=== PATIENT | female | born 1960 | race Caucasian/White ===

== ENCOUNTER 2020-03-01 07:43 | Outpatient (CLI) | payer BC, SELFPAY ==
[2020-03-01 08:12] LABS: Basophils Absolute Auto 0.1 K/mm3 (0.0-0.1); Basophils Percent Auto 0.4 % (0.2-1.2); Eosinophils Absolute Auto 0.2 K/mm3 (0-0.3); Hematocrit 41.6 % (37.0-47.0); Hemoglobin 13.3 g/dL (12.0-15.0); Immature Granulocyte Absolute 0.04 K/mm3 (0.00-0.031); Immature Granulocyte Percent A 0.4 % (0-0.5); Lymphocytes Absolute Auto 2.54 K/mm3 (0.9-3.2); Lymphocytes Percent Auto 22.3 % (18.3-44.2); Mean Corpuscular Hemoglobin 27.6 pg (26-34); Mean Corpuscular Volume 86.3 fl (80-100); Mean Platelet Volume 9.5 fl (7.4-10.4); Monocytes Absolute Auto 0.6 K/mm3 (0.1-0.6); Monocytes Percent Auto 5.4 % (2.6-8.5); Neutrophils Absolute Auto 7.9 K/mm3 (1.3-6.7); Neutrophils Percent Auto 69.5 % (45.5-73.1); Platelet Count Result 366 k/mm3 (150-375); Red Blood Count 4.82 M/mm3 (4.2-5.4); Red Cell Distribution Width 13.3 % (11.5-14.5); White Blood Count 11.4 K/mm3 (4.5-10.0)
[2020-03-01 08:25] LABS: Alanine Aminotransferase 30 U/L (4-35); Albumin Level 4.4 g/dL (3.5-5.1); Alkaline Phosphatase 93 U/L (38-126); Aspartate Amino Transferase 27 U/L (14-36); Bilirubin,Total 0.6 mg/dL (0.2-1.3); Blood Urea Nitrogen 12 mg/dL (7-17); Calcium 9.4 mg/dL (8.4-10.2); Carbon Dioxide 27 mmol/L (22-30); Chloride 99 mmol/L (98-107); Cholesterol 256 mg/dL (0-200); Estimated Glomerular Filt Rate > 60; Glucose 115 mg/dL (65-105); HDL Direct 42 mg/dL; Potassium 4.1 mmol/L (3.4-5.0); Sodium 135 mmol/L (137-145); Triglycerides 173 mg/dL (<150); Uric Acid 6.3 mg/dL (2.5-7.5)
[2020-03-01 08:36] LABS: LDL Cholesterol Direct 159 mg/dL
[2020-03-01 08:42] LABS: Hemoglobin A1C 5.8 % (<5.7)
[2020-03-01 09:03] LABS: Erythrocyte Sedimentation Rate 35 mm/hr (0-20)
[2020-03-01 09:04] LABS: Free T4 Free Thyroxine 1.37 ng/mL (0.78-2.19)
[2020-03-06 08:55] LABS: ANA Cascade Screen Positive (Negative)
[2020-03-06 11:41] LABS: Chromatin (Nucleosomal) Ab <1.0; Chromatin Antibody Charge YES; DNA (ds) Antibody Charge YES; RNP Antibody <1.0; RNP Antibody Charge YES; Sm Antibody <1.0; Sm Antibody Charge YES; Sm/RNP Antibody <1.0; Sm/RNP Antibody Charge YES
== END 2020-03-01 07:44 | disposition home or self-care (01) ==
LOC: ANHLAB 07:45
PROVIDERS: PCP Family Medicine; Visit Provider Family Medicine
DX: R73.03 Prediabetes (principal); K50.90 Crohn's disease, unspecified, without complications; I10 Essential (primary) hypertension; E78.2 Mixed hyperlipidemia; I25.10 Atherosclerotic heart disease of native coronary artery without angina pectoris; E04.9 Nontoxic goiter, unspecified; E03.9 Hypothyroidism, unspecified
CPT/HCPCS: 36415; 80053; 80061; 83036; 84439; 84443; 84550; 85025; 85652; 86038; 86225; 86235

== ENCOUNTER 2020-10-01 08:22 | Outpatient (CLI) | payer BC, SELFPAY ==
--- NOTE | ~2020-10-01 | XR_ITS ---
XR knee LT 3V 10/01/2020 08:37 Indication: Left knee pain Procedure: 3 views left knee Comparison: No prior studies for comparison. Findings: There is mild joint space narrowing consistent with degenerative joint disease. No fracture or traumatic malalignment. There is anatomic alignment. No joint effusion. No foreign bodies. Impression: 1: Mild osteoarthritis of the left knee. Reviewed, dictated and finalized at location B. 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
[2020-10-01 09:14] LABS: Basophils Absolute Auto 0.1 K/mm3 (0.0-0.1); Basophils Percent Auto 0.4 % (0.2-1.2); Eosinophils Absolute Auto 0.2 K/mm3 (0-0.3); Eosinophils Percent Auto 1.8 % (0-4.4); Hematocrit 38.8 % (37.0-47.0); Hemoglobin 12.8 g/dL (12.0-15.0); Immature Granulocyte Absolute 0.04 K/mm3 (0.00-0.031); Immature Granulocyte Percent A 0.4 % (0-0.5); Lymphocytes Absolute Auto 2.34 K/mm3 (0.9-3.2); Lymphocytes Percent Auto 20.6 % (18.3-44.2); Mean Corpuscular Hemoglobin 27.3 pg (26-34); Mean Corpuscular Volume 82.7 fl (80-100); Mean Platelet Volume 9.2 fl (7.4-10.4); Monocytes Absolute Auto 0.5 K/mm3 (0.1-0.6); Monocytes Percent Auto 4.6 % (2.6-8.5); Neutrophils Absolute Auto 8.2 K/mm3 (1.3-6.7); Neutrophils Percent Auto 72.2 % (45.5-73.1); Platelet Count Result 398 k/mm3 (150-375); Red Blood Count 4.69 M/mm3 (4.2-5.4); White Blood Count 11.4 K/mm3 (4.5-10.0)
[2020-10-01 09:27] LABS: Alanine Aminotransferase 33 U/L (4-35); Albumin Level 4.5 g/dL (3.5-5.1); Alkaline Phosphatase 85 U/L (38-126); Anion Gap 11 mmol/L (8-16); Aspartate Amino Transferase 32 U/L (14-36); Bilirubin,Total 0.5 mg/dL (0.2-1.3); Blood Urea Nitrogen 14 mg/dL (7-17); Calcium 9.6 mg/dL (8.4-10.2); Carbon Dioxide 27 mmol/L (22-30); Chloride 100 mmol/L (98-107); Cholesterol 234 mg/dL (0-200); Estimated Glomerular Filt Rate > 60; Glucose 121 mg/dL (65-105); HDL Direct 38 mg/dL; Potassium 4.3 mmol/L (3.4-5.0); Sodium 138 mmol/L (137-145); Triglycerides 215 mg/dL (<150)
[2020-10-01 09:38] LABS: LDL Cholesterol Direct 157 mg/dL
[2020-10-01 09:50] LABS: Erythrocyte Sedimentation Rate 74 mm/hr (0-20)
[2020-10-01 11:37] LABS: Creatinine Urine 289.3 mg/dL
[2020-10-01 11:42] LABS: MALB Creatinine Ratio 11.5 mg/g (0-30); Microalbumin Urine Random 33.2 mg/L (0-16.7)
== END 2020-10-01 08:23 | disposition home or self-care (01) ==
PROVIDERS: PCP Family Medicine; Visit Provider Family Medicine
DX: M25.462 Effusion, left knee (principal); I10 Essential (primary) hypertension; E11.9 Type 2 diabetes mellitus without complications; E78.2 Mixed hyperlipidemia; K50.90 Crohn's disease, unspecified, without complications
CPT/HCPCS: 36415; 73562; 80053; 80061; 82043; 83036; 85025; 85652

== ENCOUNTER 2020-10-23 12:16 | Outpatient (CLI) | payer BC, SELFPAY ==
--- NOTE | ~2020-10-23 | MM_ITS ---
EXAMINATION: MM screening [facility] BI w layla HISTORY: Screening TECHNIQUE: Craniocaudal and mediolateral oblique 3-D tomosynthesis images were obtained and synthetic 2-D images were generated. CAD analysis was submitted and interpreted. COMPARISON: Comparison to multiple prior studies sequentially, with oldest reviewed study dated 05/23. BREAST PARENCHYMAL COMPOSITION: The breasts are heterogeneously dense, which may obscure small masses . FINDINGS: There are scattered benign-appearing breast masses which aren't significantly changed. Ther e is no evidence of suspicious mass, calcification, or architectural distortion to suggest malignancy in either breast. There has been no suspicious interval change. IMPRESSION: 1. No mammographic evidence of malignancy. 2. Recommend routine screening mammography in one year. BI-RADS Category 2: Benign finding(s). Reviewed, dictated and finalized at location D. 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
== END 2020-10-23 12:17 | disposition home or self-care (01) ==
LOC: ANHIMG 12:18
PROVIDERS: PCP Family Medicine; Visit Provider Obstetrics & Gynecology Gynecology
DX: Z12.31 Encounter for screening mammogram for malignant neoplasm of breast (principal)
CPT/HCPCS: 77063; 77067

== ENCOUNTER 2020-10-24 13:54 | Outpatient (CLI) | payer BC, SELFPAY ==
[2020-10-24 14:42] LABS: Hematocrit 39.1 % (37.0-47.0); Hemoglobin 12.5 g/dL (12.0-15.0); Mean Corpuscular Hemoglobin 26.9 pg (26-34); Mean Corpuscular Volume 84.3 fl (80-100); Mean Platelet Volume 9.3 fl (7.4-10.4); Platelet Count Result 387 k/mm3 (150-375); Red Blood Count 4.64 M/mm3 (4.2-5.4); Red Cell Distribution Width 13.6 % (11.5-14.5); White Blood Count 13.9 K/mm3 (4.5-10.0)
[2020-10-24 14:58] LABS: Alanine Aminotransferase 21 U/L (4-35); Albumin Level 4.3 g/dL (3.5-5.1); Alkaline Phosphatase 79 U/L (38-126); Anion Gap 6 mmol/L (8-16); Aspartate Amino Transferase 25 U/L (14-36); Bilirubin,Total 0.4 mg/dL (0.2-1.3); Blood Urea Nitrogen 14 mg/dL (7-17); CRP 2.6 mg/dL (<1.0); Calcium 9.7 mg/dL (8.4-10.2); Carbon Dioxide 32 mmol/L (22-30); Chloride 98 mmol/L (98-107); Estimated Glomerular Filt Rate > 60; Glucose 89 mg/dL (65-105); Potassium 4.4 mmol/L (3.4-5.0); Sodium 136 mmol/L (137-145)
[2020-10-24 15:55] LABS: Erythrocyte Sedimentation Rate 58 mm/hr (0-20)
== END 2020-10-24 13:55 | disposition home or self-care (01) ==
PROVIDERS: PCP Family Medicine; Visit Provider Nurse Practitioner Family
DX: K50.10 Crohn's disease of large intestine without complications (principal); R19.7 Diarrhea, unspecified
CPT/HCPCS: 36415; 80053; 85027; 85652; 86140

== ENCOUNTER 2020-10-29 09:16 | Outpatient (CLI) | payer BC, SELFPAY | END 2020-10-29 09:17 | disposition home or self-care (01) | PROVIDERS: PCP Family Medicine; Visit Provider Nurse Practitioner Family | DX: K50.10 Crohn's disease of large intestine without complications (principal); R19.7 Diarrhea, unspecified | CPT/HCPCS: 87045; 87046; 87427 ==

== ENCOUNTER 2021-04-03 07:49 | Outpatient (CLI) | payer BC, SELFPAY ==
[2021-04-03 09:12] LABS: Hemoglobin A1C 6.3 % (<5.7)
[2021-04-03 10:00] LABS: Alanine Aminotransferase 25 U/L (4-35); Albumin Level 4.6 g/dL (3.5-5.1); Alkaline Phosphatase 86 U/L (38-126); Anion Gap 13 mmol/L (8-16); Aspartate Amino Transferase 41 U/L (14-36); Bilirubin,Total 0.8 mg/dL (0.2-1.3); Blood Urea Nitrogen 14 mg/dL (7-17); Calcium 9.5 mg/dL (8.4-10.2); Carbon Dioxide 24 mmol/L (22-30); Chloride 96 mmol/L (98-107); Estimated Glomerular Filt Rate > 60; Glucose 105 mg/dL (65-110); Sodium 133 mmol/L (137-145)
[2021-04-03 10:04] LABS: Basophils Percent Auto 0.4 % (0.2-1.2); Eosinophils Absolute Auto 0.3 K/mm3 (0-0.3); Eosinophils Percent Auto 2.7 % (0-4.4); Hematocrit 43.5 % (37.0-47.0); Hemoglobin 14.3 g/dL (12.0-15.0); Immature Granulocyte Absolute 0.03 K/mm3 (0.00-0.031); Immature Granulocyte Percent A 0.3 % (0-0.5); Lymphocytes Absolute Auto 2.44 K/mm3 (0.9-3.2); Lymphocytes Percent Auto 22.3 % (18.3-44.2); Mean Corpuscular HGB Conc 32.9 g/dl (32-36); Mean Corpuscular Hemoglobin 26.7 pg (26-34); Mean Corpuscular Volume 81.2 fl (80-100); Mean Platelet Volume 10.5 fl (7.4-10.4); Monocytes Absolute Auto 0.5 K/mm3 (0.1-0.6); Monocytes Percent Auto 4.4 % (2.6-8.5); Neutrophils Absolute Auto 7.7 K/mm3 (1.3-6.7); Neutrophils Percent Auto 69.9 % (45.5-73.1); Platelet Count Result 298 k/mm3 (150-375); Red Blood Count 5.36 M/mm3 (4.2-5.4); Red Cell Distribution Width 13.7 % (11.5-14.5); White Blood Count 10.9 K/mm3 (4.5-10.0)
== END 2021-04-03 07:50 | disposition home or self-care (01) ==
LOC: ANHLAB 07:51
PROVIDERS: PCP Family Medicine; Visit Provider Physician Assistant
DX: E78.2 Mixed hyperlipidemia (principal); R73.03 Prediabetes; I10 Essential (primary) hypertension
CPT/HCPCS: 36415; 80053; 83036; 85025

== ENCOUNTER 2021-04-25 07:59 | Outpatient (CLI) | payer BC, SELFPAY ==
[2021-04-25 09:01] LABS: Anion Gap 11 mmol/L (8-16); Blood Urea Nitrogen 13 mg/dL (7-17); Calcium 9.6 mg/dL (8.4-10.2); Carbon Dioxide 23 mmol/L (22-30); Chloride 102 mmol/L (98-107); Estimated Glomerular Filt Rate > 60; Glucose 111 mg/dL (65-110); Potassium 3.9 mmol/L (3.4-5.0); Sodium 136 mmol/L (137-145)
== END 2021-04-25 08:00 | disposition home or self-care (01) ==
LOC: ANHLAB 08:03
PROVIDERS: PCP Family Medicine; Visit Provider Physician Assistant
DX: E87.1 Hypo-osmolality and hyponatremia (principal)
CPT/HCPCS: 36415; 80048

== ENCOUNTER 2021-08-21 07:10 | Outpatient (CLI) | payer BC, SELFPAY ==
[2021-08-21 07:52] LABS: Add Urine Microscopic? NO; Appearance Urine Clear (Clear); Bilirubin Urine Negative (Negative); Blood Urine Negative (Negative); Color Urine Yellow (Yellow); Glucose Urine UA Negative (Negative); Ketones Urine Negative (Negative); Leukocyte Esterase Ur Negative LEU/UL (Negative); Nitrate Urine Negative (Negative); Protein Urine Negative (Negative); Specific Grav Ur 1.015 (1.001-1.035); Urobilinogen Urine Negative mg/dL (<2.0)
[2021-08-21 08:02] LABS: Hematocrit 39.1 % (37.0-47.0); Hemoglobin 12.5 g/dL (12.0-15.0); Mean Corpuscular Hemoglobin 27.3 pg (26-34); Mean Corpuscular Volume 85.4 fl (80-100); Mean Platelet Volume 9.4 fl (7.4-10.4); Platelet Count Result 355 k/mm3 (150-375); Red Blood Count 4.58 M/mm3 (4.2-5.4); Red Cell Distribution Width 13.3 % (11.5-14.5)
[2021-08-21 08:05] LABS: Rheumatoid Factor < 8.6 IU/ML (<12)
[2021-08-21 08:10] LABS: Alanine Aminotransferase 18 U/L (4-35); Albumin Level 4.3 g/dL (3.5-5.1); Alkaline Phosphatase 91 U/L (38-126); Anion Gap 9 mmol/L (8-16); Aspartate Amino Transferase 24 U/L (14-36); Bilirubin,Total 0.5 mg/dL (0.2-1.3); Blood Urea Nitrogen 10 mg/dL (7-17); Calcium 9.7 mg/dL (8.4-10.2); Carbon Dioxide 29 mmol/L (22-30); Chloride 100 mmol/L (98-107); Estimated Glomerular Filt Rate > 60; Glucose 116 mg/dL (65-110); Potassium 3.8 mmol/L (3.4-5.0); Sodium 138 mmol/L (137-145)
[2021-08-21 09:43] LABS: Erythrocyte Sedimentation Rate 49 mm/hr (0-20)
[2021-08-27 11:49] LABS: Anti Cyclic Citrullinated Pept <16 Units (<20)
== END 2021-08-21 07:11 | disposition home or self-care (01) ==
LOC: ANHLAB 07:12
PROVIDERS: PCP Family Medicine; Visit Provider Internal Medicine
DX: M19.90 Unspecified osteoarthritis, unspecified site (principal); R76.8 Other specified abnormal immunological findings in serum
CPT/HCPCS: 36415; 80053; 81003; 85027; 85652; 86140; 86200; 86225; 86430

== ENCOUNTER 2021-11-13 09:39 | Outpatient (CLI) | payer BC, SELFPAY ==
--- NOTE | ~2021-11-13 | MM_ITS ---
EXAMINATION: MM screening nick BI w layla HISTORY: Screening mammogram TECHNIQUE: Craniocaudal and mediolateral oblique 3-D tomosynthesis images were obtained and synthetic 2-D images were generated. CAD analysis was submitted and interpreted. COMPARISON: 10/27/2020, 09/07/2019, 06/28/2018 bilateral screening mammogram examinations BREAST PARENCHYMAL COMPOSITION: There are scattered areas of fibroglandular density. FINDINGS: Scattered bilateral benign calcifications. There is no evidence of suspicious mass, calcifi cation, or architectural distortion to suggest malignancy in either breast. There has been no suspici ous interval change. IMPRESSION: 1. No mammographic evidence of malignancy. 2. Recommend routine screening mammography in one year. BI-RADS Category 2: Benign finding(s). Reviewed, dictated and finalized at location A.
== END 2021-11-13 09:40 | disposition home or self-care (01) ==
PROVIDERS: PCP Family Medicine; Visit Provider Obstetrics & Gynecology Gynecology
DX: Z12.31 Encounter for screening mammogram for malignant neoplasm of breast (principal)
CPT/HCPCS: 77063; 77067

== ENCOUNTER 2022-01-29 07:41 | Emergency (ER) | payer BC, SELFPAY ==
[2022-01-29 07:42] VITALS: BP 157/64; PULSE 87; RESP 14; TEMP 36.8; O2SAT 93
[2022-01-29 08:29] LABS: Basophils Percent Auto 0.1 % (0.2-1.2); Eosinophils Absolute Auto 0.1 K/mm3 (0-0.3); Eosinophils Percent Auto 0.8 % (0-4.4); Hematocrit 36.5 % (37.0-47.0); Immature Granulocyte Absolute 0.05 K/mm3 (0.00-0.031); Immature Granulocyte Percent A 0.5 % (0-0.5); Lymphocytes Absolute Auto 0.83 K/mm3 (0.9-3.2); Lymphocytes Percent Auto 7.5 % (18.3-44.2); Mean Corpuscular HGB Conc 32.9 g/dl (32-36); Mean Corpuscular Hemoglobin 27.6 pg (26-34); Mean Corpuscular Volume 83.9 fl (80-100); Mean Platelet Volume 9.4 fl (7.4-10.4); Monocytes Absolute Auto 0.4 K/mm3 (0.1-0.6); Monocytes Percent Auto 3.3 % (2.6-8.5); Neutrophils Absolute Auto 9.7 K/mm3 (1.3-6.7); Neutrophils Percent Auto 87.8 % (45.5-73.1); Platelet Count Result 326 k/mm3 (150-375); Red Blood Count 4.35 M/mm3 (4.2-5.4); Red Cell Distribution Width 13.2 % (11.5-14.5); White Blood Count 11.1 K/mm3 (4.5-10.0)
[2022-01-29 08:35] LABS: Alanine Aminotransferase 56 U/L (6-35); Albumin Level 4.1 g/dL (3.5-5.1); Alkaline Phosphatase 213 U/L (38-126); Anion Gap 6 mmol/L (8-16); Aspartate Amino Transferase 126 U/L (14-36); Blood Urea Nitrogen 17 mg/dL (7-17); Calcium 8.7 mg/dL (8.4-10.2); Carbon Dioxide 29 mmol/L (22-30); Chloride 100 mmol/L (98-107); Estimated CRCL calculation 64 ml/min; Estimated Glomerular Filt Rate > 60; Glucose 138 mg/dL (65-110); Lipase 54 U/L (23-300); Potassium 3.9 mmol/L (3.4-5.0); Sodium 135 mmol/L (137-145)
[2022-01-29 09:03] LABS: Appearance Urine Cloudy (Clear); Bilirubin Urine Negative (Negative); Blood Urine Negative (Negative); Color Urine Yellow (Yellow); Glucose Urine UA Negative (Negative); Ketones Urine Negative (Negative); Leukocyte Esterase Ur 1+ LEU/UL (Negative); Nitrate Urine Negative (Negative); Protein Urine Negative (Negative); Specific Grav Ur >= 1.030 (1.001-1.035); pH Urine 5.5 (5.0-9.0)
[2022-01-29 09:14] LABS: Mucus Urine Few /lpf; Squamous Epithelial Cell Urine Many /hpf (Few)
[2022-01-29 09:15] LABS: Add Urine Microscopic? YES
[2022-01-29] MEDS: SODIUM CHLORIDE 0.9% IV 1,000 ML 999 ML IV CONT (09:36)
[2022-01-29] MEDS: ONDANSETRON INJ 4 MG/2 ML VIAL IV PUSH (09:37)
[2022-01-29] MEDS: MORPHINE SULFATE (*CRX) 4 MG/ML INJ IV PUSH (09:38)
[2022-01-29 09:39] VITALS: BP 136/86; PULSE 86; RESP 14; O2SAT 95
--- NOTE | 2022-01-29 09:44 | ED.GENADULT ---
HPI - General Adult General Chief complaint: Back Pain/Injury Stated complaint: Back Pain x 1 wk, N/V x 1 day Time Seen by Provider: 01/29/22 07:57 History of Present Illness HPI narrative: Patient is a 61-year-old female who presents ER with multiple complaints. First complaint is low back pain. Aching and nonradiating. Ongoing for 1 week. Has not tried any pain medications. Cannot report any alleviating factors. Reports last night she started having diarrhea and cannot quantify how many stools she has had. She then developed vomiting this morning. No known sick contacts. No fevers or chills or sweats. No chest pain or chest pressure. Patient reports she has had her gallbladder removed. Related Data Home Medications Medication Instructions Recorded Confirmed ctyuwqfrldsm-eafmxecf-qrxozou-folic 1 tablet PO DAILY 07/14/19 07/02/21 acid 400 mcg-vit K1 20 mcg tablet (One-A-Day Women's 50 Plus) nitroglycerin 0.4 mg sublingual 0.4 mg sublingual Q5M PRN Chest 07/14/19 07/02/21 tablet Pain vedolizumab 300 mg intravenous 300 mg IV ONCE 10/01/20 07/02/21 solution (Entyvio) B-complex with vitamin C (Super B 1 tablet PO DAILY 10/14/20 07/02/21 Complex-Vitamin C tablet) tacrolimus 0.1 % topical ointment 1 applic topical BID 10/14/20 07/02/21 Allergies Allergy/AdvReac Type Severity Reaction Status Date / Time adalimumab [From Humira] Allergy Intermediate rash Verified 01/29/22 07:45 Review of Systems Review of Systems: All systems reviewed & are unremarkable except as noted in HPI and below Constitutional: Constitutional: Denies chills, Reports fatigue and Denies fever(s) ENT: Denies nasal congestion Cardiovascular: Cardiovascular: Denies chest pain, Denies rapid heart rate and Denies radiating jaw, neck or arm pain Respiratory: Respiratory: Denies cough and Denies dyspnea Gastrointestinal: Gastrointestinal: Denies abdominal pain, Reports diarrhea, Reports nausea and Reports vomiting Genitourinary: Genitourinary: Denies nocturia and Denies dysuria Musculoskeletal: Musculoskeletal: Reports back pain Neurologic: Denies focal weakness and Denies numbness PMFSH Past Medical History Medical History Acute right-sided thoracic back pain ESPERANZA positive (~2019) Atherosclerotic heart disease of [place] coronary artery with angina pectoris Borderline diabetes mellitus Borderline type 2 diabetes mellitus BP (high blood pressure) Bronchitis CAD (coronary artery disease) Cellulitis and abscess of left lower extremity Cerebrovascular accident (CVA) of pontine structure Crohn disease Cutaneous abscess of left lower limb Depression Diabetes Diarrhea Dietary counseling and surveillance (01/31/19) Elevated fasting glucose Elevated liver enzymes Encounter for surgical aftercare following surgery on the skin and subcutaneous tissue Epidermal cyst Erythema nodosum Essential (primary) hypertension Foot drop MARCIA (generalized anxiety disorder) Gout, unspecified Hemiplegia of nondominant side following CVA (cerebrovascular accident) History of [place] (myocardial infarction) Hyperlipidemia, unspecified Hypersomnia Hypothyroidism Left knee DJD Localized swelling of back skilled nursing (current) use of antithrombotics/antiplatelets Major depressive disorder, recurrent severe without psychotic features Mass of left hip region Mixed hyperlipidemia Neuropathy Non-cardiac chest pain ALANA (obstructive sleep apnea) Other iodine-deficiency related thyroid disorders and allied conditions Screening for diabetes mellitus (DM) Stroke Subacute maxillary sinusitis Ulcerative proctitis with rectal bleeding Vitamin D deficiency Surgical History Surgical History H/O heart artery stent History of surgery Crohn's, 04/2019 Dr. Culp History of toe surgery LT 1st toe- 02/2015 History of tubal ligation Family History Family Histo
[2022-01-29 10:15] VITALS: BP 132/54; PULSE 81; RESP 18; O2SAT 96
[2022-01-29 11:30] VITALS: BP 131/61; PULSE 79; RESP 19; O2SAT 96
[2022-01-29 12:10] VITALS: BP 137/69; PULSE 77; RESP 14; O2SAT 94
[2022-01-29 12:15] VITALS: BP 137/69; PULSE 82; RESP 19; O2SAT 93
== END 2022-01-29 12:15 | disposition home or self-care (01) ==
PROVIDERS: Emergency Provider Emergency Medicine; PCP Family Medicine
DX: M54.6 Pain in thoracic spine (principal); K52.9 Noninfective gastroenteritis and colitis, unspecified; I25.10 Atherosclerotic heart disease of native coronary artery without angina pectoris; E11.9 Type 2 diabetes mellitus without complications; I10 Essential (primary) hypertension; E78.5 Hyperlipidemia, unspecified
CPT/HCPCS: 36415; 80053; 81001; 83690; 85025; 87086; 87088; 96361; 96374; 96375; 99284; J2270; J2405; J7030

== ENCOUNTER 2022-02-11 11:37 | Outpatient (CLI) | payer BC, SELFPAY ==
[2022-02-11 11:57] LABS: Hematocrit 39.3 % (37.0-47.0); Hemoglobin 12.5 g/dL (12.0-15.0); Mean Corpuscular HGB Conc 31.8 g/dl (32-36); Mean Corpuscular Volume 84.9 fl (80-100); Mean Platelet Volume 9.2 fl (7.4-10.4); Platelet Count Result 360 k/mm3 (150-375); Red Blood Count 4.63 M/mm3 (4.2-5.4); Red Cell Distribution Width 13.3 % (11.5-14.5); White Blood Count 11.5 K/mm3 (4.5-10.0)
[2022-02-11 12:12] LABS: Alanine Aminotransferase 21 U/L (6-35); Albumin Level 4.6 g/dL (3.5-5.1); Alkaline Phosphatase 98 U/L (38-126); Anion Gap 10 mmol/L (8-16); Aspartate Amino Transferase 20 U/L (14-36); Bilirubin,Total 0.2 mg/dL (0.2-1.3); Blood Urea Nitrogen 16 mg/dL (7-17); Calcium 9.7 mg/dL (8.4-10.2); Carbon Dioxide 28 mmol/L (22-30); Chloride 101 mmol/L (98-107); Estimated Glomerular Filt Rate > 60; Glucose 99 mg/dL (65-110); Potassium 4.2 mmol/L (3.4-5.0); Sodium 139 mmol/L (137-145)
[2022-02-11 12:48] LABS: Erythrocyte Sedimentation Rate 40 mm/hr (0-20)
== END 2022-02-11 11:38 | disposition home or self-care (01) ==
LOC: ANHLAB 11:41
PROVIDERS: PCP Family Medicine; Visit Provider Nurse Practitioner Family
DX: K50.90 Crohn's disease, unspecified, without complications (principal)
CPT/HCPCS: 36415; 80053; 85027; 85652; 86140

== ENCOUNTER 2022-02-14 09:09 | Outpatient (CLI) | payer BC, SELFPAY ==
[2022-02-20 20:31] LABS: Calprotectin, Stool 105 mcg/g
== END 2022-02-14 09:10 | disposition home or self-care (01) ==
LOC: ANHLAB 09:11
PROVIDERS: PCP Family Medicine; Visit Provider Nurse Practitioner Family
DX: K50.90 Crohn's disease, unspecified, without complications (principal)
CPT/HCPCS: 83993

== ENCOUNTER 2022-04-17 07:15 | Outpatient (CLI) | payer BC, SELFPAY ==
[2022-04-17 07:45] LABS: Basophils Absolute Auto 0.1 K/mm3 (0.0-0.1); Basophils Percent Auto 0.4 % (0.2-1.2); Eosinophils Absolute Auto 0.2 K/mm3 (0-0.3); Eosinophils Percent Auto 1.8 % (0-4.4); Hematocrit 38.8 % (37.0-47.0); Hemoglobin 12.2 g/dL (12.0-15.0); Immature Granulocyte Absolute 0.04 K/mm3 (0.00-0.031); Immature Granulocyte Percent A 0.3 % (0-0.5); Lymphocytes Absolute Auto 3.02 K/mm3 (0.9-3.2); Lymphocytes Percent Auto 26.4 % (18.3-44.2); Mean Corpuscular HGB Conc 31.4 g/dl (32-36); Mean Corpuscular Hemoglobin 26.8 pg (26-34); Mean Corpuscular Volume 85.1 fl (80-100); Mean Platelet Volume 9.5 fl (7.4-10.4); Monocytes Absolute Auto 0.6 K/mm3 (0.1-0.6); Neutrophils Absolute Auto 7.6 K/mm3 (1.3-6.7); Neutrophils Percent Auto 66.1 % (45.5-73.1); Platelet Count Result 385 k/mm3 (150-375); Red Blood Count 4.56 M/mm3 (4.2-5.4); Red Cell Distribution Width 13.3 % (11.5-14.5); White Blood Count 11.4 K/mm3 (4.5-10.0)
[2022-04-17 07:52] LABS: Creatinine Urine 140.6 mg/dL
[2022-04-17 07:58] LABS: Microalbumin Urine Random 8.4 mg/L (0-16.7)
[2022-04-17 08:11] LABS: Free T4 Free Thyroxine 1.29 ng/mL (0.78-2.19)
[2022-04-17 10:04] LABS: Hemoglobin A1C 5.9 % (<5.7)
[2022-04-17 10:11] LABS: Alanine Aminotransferase 17 U/L (6-35); Albumin Level 4.3 g/dL (3.5-5.1); Alkaline Phosphatase 81 U/L (38-126); Anion Gap 10 mmol/L (8-16); Aspartate Amino Transferase 23 U/L (14-36); Bilirubin,Total 0.4 mg/dL (0.2-1.3); Blood Urea Nitrogen 13 mg/dL (7-17); Calcium 9.5 mg/dL (8.4-10.2); Carbon Dioxide 28 mmol/L (22-30); Chloride 100 mmol/L (98-107); Cholesterol 157 mg/dL (0-200); Estimated Glomerular Filt Rate > 60; Glucose 111 mg/dL (65-110); HDL Direct 41 mg/dL; Potassium 3.8 mmol/L (3.4-5.0); Sodium 138 mmol/L (137-145)
[2022-04-17 10:17] LABS: LDL Cholesterol Direct 76 mg/dL
[2022-04-17 10:33] LABS: Total Triiodothyronine (T3) 0.92 NG/ML (0.97-1.69); Triglycerides 207 mg/dL (<150)
== END 2022-04-17 07:16 | disposition home or self-care (01) ==
LOC: ANHLAB 07:16
PROVIDERS: PCP Family Medicine; Visit Provider Nurse Practitioner Gerontology
DX: I25.10 Atherosclerotic heart disease of native coronary artery without angina pectoris (principal); I10 Essential (primary) hypertension; E11.9 Type 2 diabetes mellitus without complications; E03.9 Hypothyroidism, unspecified; Z86.73 Personal history of transient ischemic attack (TIA), and cerebral infarction without residual deficits
CPT/HCPCS: 36415; 80053; 80061; 82043; 83036; 84439; 84443; 84480; 85025

== ENCOUNTER 2022-11-02 08:04 | Outpatient (CLI) | payer BC, SELFPAY ==
[2022-11-02 08:50] LABS: Hematocrit 38.9 % (37.0-47.0); Hemoglobin 12.5 g/dL (12.0-15.0); Mean Corpuscular HGB Conc 32.1 g/dl (32-36); Mean Corpuscular Hemoglobin 26.9 pg (26-34); Mean Corpuscular Volume 83.7 fl (80-100); Mean Platelet Volume 9.6 fl (7.4-10.4); Platelet Count Result 375 k/mm3 (150-375); Red Blood Count 4.65 M/mm3 (4.2-5.4); Red Cell Distribution Width 13.9 % (11.5-14.5); White Blood Count 10.5 K/mm3 (4.5-10.0)
[2022-11-02 09:46] LABS: Erythrocyte Sedimentation Rate 101 mm/hr (0-20)
[2022-11-02 09:57] LABS: Alanine Aminotransferase 24 U/L (6-35); Albumin Level 4.4 g/dL (3.5-5.1); Alkaline Phosphatase 80 U/L (38-126); Anion Gap 10 mmol/L (8-16); Aspartate Amino Transferase 28 U/L (14-36); Bilirubin,Total 0.6 mg/dL (0.2-1.3); Blood Urea Nitrogen 13 mg/dL (7-17); CRP 1.1 mg/dL (<1.0); Calcium 9.5 mg/dL (8.4-10.2); Carbon Dioxide 28 mmol/L (22-30); Chloride 101 mmol/L (98-107); Cholesterol 174 mg/dL (0-200); Estimated Glomerular Filt Rate > 60; Glucose 113 mg/dL (65-110); HDL Direct 35 mg/dL; Potassium 3.8 mmol/L (3.4-5.0); Sodium 139 mmol/L (137-145); Triglycerides 268 mg/dL (<150)
[2022-11-02 10:06] LABS: LDL Cholesterol Direct 94 mg/dL
== END 2022-11-02 08:05 | disposition home or self-care (01) ==
PROVIDERS: Nurse Practitioner Gerontology; PCP Family Medicine; Visit Provider Nurse Practitioner Family
DX: E78.2 Mixed hyperlipidemia (principal); E11.9 Type 2 diabetes mellitus without complications; K50.10 Crohn's disease of large intestine without complications
CPT/HCPCS: 36415; 80053; 80061; 83036; 85027; 85652; 86140

== ENCOUNTER 2022-11-10 09:33 | Outpatient (CLI) | payer BC, SELFPAY ==
[2022-11-18 00:45] LABS: Calprotectin, Stool 100 mcg/g
== END 2022-11-10 09:34 | disposition home or self-care (01) ==
LOC: ANHLAB 09:34
PROVIDERS: PCP Family Medicine; Visit Provider Nurse Practitioner Family
DX: R70.0 Elevated erythrocyte sedimentation rate (principal); K50.10 Crohn's disease of large intestine without complications
CPT/HCPCS: 83993

== ENCOUNTER 2022-11-19 15:10 | Outpatient (CLI) | payer BC, SELFPAY ==
--- NOTE | ~2022-11-19 | XR_ITS ---
EXAMINATION: XR abdomen/kub 1V INDICATION: Abdominal distention TECHNIQUE: Supine views of the abdomen were obtained on 2 radiographs. COMPARISON: None FINDINGS: There is elevation of the right hemidiaphragm. No dilated loops of bowel are evident. The b owel gas pattern is normal. Surgical clips in the right upper quadrant are likely from prior cholecys tectomy. Uterine calcifications are noted. There is mild osteoarthritis of the hips. IMPRESSION: 1. No radiographic correlate for the patient's symptoms. Reviewed, dictated and finalized at location F.
[2022-11-19 15:59] LABS: Hematocrit 39.3 % (37.0-47.0); Hemoglobin 12.6 g/dL (12.0-15.0); Mean Corpuscular HGB Conc 32.1 g/dl (32-36); Mean Corpuscular Hemoglobin 27.3 pg (26-34); Mean Corpuscular Volume 85.1 fl (80-100); Mean Platelet Volume 9.7 fl (7.4-10.4); Platelet Count Result 411 k/mm3 (150-375); Red Blood Count 4.62 M/mm3 (4.2-5.4); Red Cell Distribution Width 13.7 % (11.5-14.5); White Blood Count 14.5 K/mm3 (4.5-10.0)
[2022-11-19 16:16] LABS: Alanine Aminotransferase 20 U/L (6-35); Albumin Level 4.6 g/dL (3.5-5.1); Alkaline Phosphatase 95 U/L (38-126); Amylase 79 U/L (30-110); Anion Gap 9 mmol/L (8-16); Aspartate Amino Transferase 22 U/L (14-36); Bilirubin,Total 0.5 mg/dL (0.2-1.3); Blood Urea Nitrogen 20 mg/dL (7-17); CRP 2.6 mg/dL (<1.0); Calcium 9.6 mg/dL (8.4-10.2); Carbon Dioxide 29 mmol/L (22-30); Chloride 99 mmol/L (98-107); Estimated Glomerular Filt Rate > 60; Glucose 137 mg/dL (65-110); Lipase 83 U/L (23-300); Potassium 4.3 mmol/L (3.4-5.0); Sodium 137 mmol/L (137-145)
[2022-11-19 16:30] LABS: Appearance Urine Turbid (Clear); Bacteria Urine 3+ /hpf; Bilirubin Urine 1+ (Negative); Blood Urine Negative (Negative); Color Urine Dark Yellow (Yellow); Glucose Urine UA Negative (Negative); Ketones Urine Trace mg/dL (Negative); Leukocyte Esterase Ur 2+ LEU/UL (Negative); Need Manual Microscopic Reviewed; Nitrate Urine Negative (Negative); Protein Urine Trace mg/dL (Negative); Specific Grav Ur 1.031 (1.001-1.035); Squamous Epithelial Cell Urine Many /hpf (Few); WBC Urine 51-100 /hpf
[2022-11-19 16:31] LABS: Add Urine Microscopic? YES
[2022-11-19 17:00] LABS: Erythrocyte Sedimentation Rate 34 mm/hr (0-20)
== END 2022-11-19 15:11 | disposition home or self-care (01) ==
LOC: ANHLAB 15:12
PROVIDERS: PCP Family Medicine; Visit Provider Nurse Practitioner Family
DX: R10.9 Unspecified abdominal pain (principal); K50.10 Crohn's disease of large intestine without complications; R14.0 Abdominal distension (gaseous)
CPT/HCPCS: 36415; 74018; 80053; 81001; 82150; 83690; 85027; 85652; 86140; 87086; 87088

== ENCOUNTER 2022-11-26 12:12 | Outpatient (CLI) | payer BC, SELFPAY ==
--- NOTE | ~2022-11-26 | CT_ITS ---
EXAMINATION: CT abdomen pelvis w con DATE: 11/26/2022 12:53 INDICATION: Abdominal pain, bloating. History of Crohn's disease. TECHNIQUE: Computed tomography (CT) of the abdomen and pelvis was performed with 100 CC Omnipaque 350 intravenous contrast. Automated exposure control and iterative reconstruction technique were employe d. Exam dose: 1046.59 mGy-cm total exam DLP. COMPARISON: 04/27/2019 CT abdomen 04/25/2019 CT abdomen pelvis FINDINGS: The lung bases are clear of infiltrate or consolidation. Heart size is within normal limits . No pericardial or pleural effusion. Status post cholecystectomy. The liver, bile ducts, pancreas, pancreatic duct and spleen as well as t he adrenal glands appear normal. Approximately 1.6 cm posterior mid left renal probable cyst. No urinary tract calculus or hydroureteronephrosis of the urinary bladder is unremarkable. Retroverte d uterus with multiple calcified uterine fibroids. The adnexal areas and ovaries are unremarkable. There is atherosclerotic calcification of the abdominal aorta and branches. No abdominal aortic aneur ysm. No intraperitoneal or retroperitoneal or pelvic mass lesion or adenopathy or ascites is detected . Small sliding hiatal hernia. No bowel obstruction or intraperitoneal free air. IMPRESSION: Status post cholecystectomy Small sliding hiatal hernia 1.6 cm left renal probable cyst Retroverted uterus with multiple calcified fibroids Reviewed, dictated and finalized at Location A. Reviewed, dictated and finalized at location A.
== END 2022-11-26 12:13 | disposition home or self-care (01) ==
PROVIDERS: PCP Family Medicine; Visit Provider Nurse Practitioner Family
DX: R10.9 Unspecified abdominal pain (principal); R14.0 Abdominal distension (gaseous); K44.9 Diaphragmatic hernia without obstruction or gangrene; N28.9 Disorder of kidney and ureter, unspecified; N85.4 Malposition of uterus; D25.9 Leiomyoma of uterus, unspecified
CPT/HCPCS: 74177; Q9967

== ENCOUNTER 2023-02-27 08:19 | Outpatient (CLI) | payer BC, SELFPAY ==
--- NOTE | ~2023-02-27 | MM_ITS ---
EXAMINATION: MM screening nick BI w layla HISTORY: Screening mammogram TECHNIQUE: Craniocaudal and mediolateral oblique 3-D tomosynthesis images were obtained and synthetic 2-D images were generated. CAD analysis was submitted and interpreted. COMPARISON: 11/13/2021, 10/23/2020, 09/07/2019 BREAST PARENCHYMAL COMPOSITION:There are scattered areas of fibroglandular density. FINDINGS: Bilateral benign calcifications are similar to prior exams. No suspicious mass, calcificati on, or architectural distortion are identified in either breast to suggest malignancy. There has been no suspicious interval change. IMPRESSION: No mammographic evidence of malignancy. Recommend routine screening mammography in one year. BI-RADS Category 2: Benign finding(s). Reviewed, dictated and finalized at location .
== END 2023-02-27 08:20 | disposition home or self-care (01) ==
LOC: ANHIMG 08:21
PROVIDERS: PCP Family Medicine; Visit Provider Obstetrics & Gynecology Gynecology
DX: Z12.31 Encounter for screening mammogram for malignant neoplasm of breast (principal)
CPT/HCPCS: 77063; 77067

== ENCOUNTER 2023-05-05 09:23 | Outpatient (CLI) | payer BC, SELFPAY ==
[2023-05-05 10:38] LABS: Basophils Absolute Auto 0.1 K/mm3 (0.0-0.1); Basophils Percent Auto 0.5 % (0.2-1.2); Eosinophils Absolute Auto 0.3 K/mm3 (0-0.3); Eosinophils Percent Auto 2.4 % (0-4.4); Hematocrit 39.4 % (37.0-47.0); Hemoglobin 12.4 g/dL (12.0-15.0); Immature Granulocyte Absolute 0.05 K/mm3 (0.00-0.031); Immature Granulocyte Percent A 0.5 % (0-0.5); Lymphocytes Percent Auto 19.6 % (18.3-44.2); Mean Corpuscular HGB Conc 31.5 g/dl (32-36); Mean Corpuscular Hemoglobin 27.1 pg (26-34); Mean Platelet Volume 10.1 fl (7.4-10.4); Monocytes Absolute Auto 0.5 K/mm3 (0.1-0.6); Monocytes Percent Auto 4.9 % (2.6-8.5); Neutrophils Absolute Auto 7.4 K/mm3 (1.3-6.7); Neutrophils Percent Auto 72.1 % (45.5-73.1); Platelet Count Result 351 k/mm3 (150-375); Red Blood Count 4.58 M/mm3 (4.2-5.4); Red Cell Distribution Width 13.9 % (11.5-14.5); White Blood Count 10.2 K/mm3 (4.5-10.0)
[2023-05-05 10:49] LABS: Alanine Aminotransferase 28 U/L (6-35); Albumin Level 4.3 g/dL (3.5-5.1); Alkaline Phosphatase 99 U/L (38-126); Anion Gap 11 mmol/L (8-16); Aspartate Amino Transferase 50 U/L (14-36); Bilirubin,Total 0.6 mg/dL (0.2-1.3); Blood Urea Nitrogen 15 mg/dL (7-17); Calcium 9.6 mg/dL (8.4-10.2); Carbon Dioxide 29 mmol/L (22-30); Chloride 97 mmol/L (98-107); Cholesterol 159 mg/dL (0-200); Estimated Glomerular Filt Rate > 60; Glucose 104 mg/dL (65-110); HDL Direct 37 mg/dL; Sodium 137 mmol/L (137-145); Triglycerides 215 mg/dL (<150)
[2023-05-05 11:00] LABS: LDL Cholesterol Direct 84 mg/dL
[2023-05-05 11:18] LABS: Thyroid Stimulating Hormone 0.879 uIU/mL (0.465-4.680)
[2023-05-05 11:23] LABS: Hemoglobin A1C 6.1 % (<5.7)
== END 2023-05-05 09:24 | disposition home or self-care (01) ==
PROVIDERS: PCP Family Medicine; Visit Provider Physician Assistant
DX: E11.9 Type 2 diabetes mellitus without complications (principal); E03.9 Hypothyroidism, unspecified; F41.1 Generalized anxiety disorder; I25.10 Atherosclerotic heart disease of native coronary artery without angina pectoris; E78.2 Mixed hyperlipidemia
CPT/HCPCS: 36415; 80053; 80061; 83036; 84443; 85025

== ENCOUNTER 2023-06-25 14:41 | Outpatient (CLI) | payer BC, SELFPAY ==
[2023-06-25 15:05] LABS: Hematocrit 40.5 % (37.0-47.0); Mean Corpuscular HGB Conc 32.1 g/dl (32-36); Mean Platelet Volume 9.2 fl (7.4-10.4); Platelet Count Result 405 k/mm3 (150-375); Red Blood Count 4.82 M/mm3 (4.2-5.4); Red Cell Distribution Width 13.5 % (11.5-14.5); White Blood Count 18.9 K/mm3 (4.5-10.0)
[2023-06-25 15:19] LABS: Atypical Lymphocytes Present; Lymphocytes Absolute Manual 3.59 K/mm3 (1.1-4.5); Monocytes Absolute Manual 0.18 K/mm3 (0.1-0.90); Monocytes Percent Manual 1 % (3-9); Neutrophils Percent Manual 80 % (46-73); Platelet Estimate Increased (Adequate); Schistocytes None Seen (NORMAL); Total Cells Counted 100
[2023-06-25 16:54] LABS: Alanine Aminotransferase 24 U/L (6-35); Albumin Level 4.3 g/dL (3.5-5.1); Alkaline Phosphatase 74 U/L (38-126); Anion Gap 9 mmol/L (8-16); Aspartate Amino Transferase 22 U/L (14-36); Bilirubin,Total 0.5 mg/dL (0.2-1.3); Blood Urea Nitrogen 24 mg/dL (7-17); Calcium 10.1 mg/dL (8.4-10.2); Carbon Dioxide 30 mmol/L (22-30); Chloride 98 mmol/L (98-107); Estimated Glomerular Filt Rate > 60; Glucose 108 mg/dL (65-110); Potassium 4.1 mmol/L (3.4-5.0); Sodium 137 mmol/L (137-145)
[2023-06-25 16:59] LABS: Erythrocyte Sedimentation Rate 18 mm/hr (0-20)
== END 2023-06-25 14:42 | disposition home or self-care (01) ==
LOC: ANHLAB 14:43
PROVIDERS: PCP Family Medicine; Visit Provider Internal Medicine Hematology & Oncology
DX: D72.829 Elevated white blood cell count, unspecified (principal)
CPT/HCPCS: 36415; 80053; 85025; 85652; 86140; 88184

== ENCOUNTER 2023-06-26 11:52 | Outpatient (CLI) | payer BC, SELFPAY ==
--- NOTE | ~2023-06-26 | MR_ITS ---
MRI of the right shoulder Technique: Axial proton-density fat-sat images, coronal proton density fat-sat and T2 fat-sat images, and sagittal T1-weighted and T2 fat-sat images were acquired. Clinical History: Pain Findings: There is mild AC joint degenerative change. Coracoclavicular, coracoacromial, and coracohum eral ligaments are intact. Supraspinatus and infraspinatus tendons are intact, with mild to moderate tendinosis. Subscapularis t endon is intact. Tendon of the long head of the biceps is intact. No labral tear evident. Inferior glenohumeral ligament is intact. No degenerative change or effusion of the glenohumeral join t. No significant fluid distention of the subacromial/subdeltoid bursa. No muscle atrophy or edema. IMPRESSION: Mild AC joint degenerative change. Kkfc-ac-ntolgsbm rotator cuff tendinosis. Reviewed, dictated and finalized at [facility]. 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 Ecig-sy-mdqnutnk rotator cuff tendinosis.
== END 2023-06-26 11:53 | disposition home or self-care (01) ==
PROVIDERS: PCP Family Medicine; Visit Provider Orthopaedic Surgery
DX: M25.511 Pain in right shoulder (principal); M77.8 Other enthesopathies, not elsewhere classified
CPT/HCPCS: 73221

== ENCOUNTER 2023-07-14 06:57 | Outpatient (CLI) | payer BC, SELFPAY ==
[2023-07-18 12:22] LABS: BCR/abl Prior Result Not Given
[2023-07-18 13:09] LABS: BCR/abl P190 Not Detected; BCR/abl P210 Not Detected
[2023-07-18 13:10] LABS: BCR/abl P190 Chg YES; BCR/abl P210 Chg YES
== END 2023-07-14 06:58 | disposition home or self-care (01) ==
LOC: ANHLAB 06:59
PROVIDERS: PCP Family Medicine; Visit Provider Internal Medicine Hematology & Oncology
DX: D72.829 Elevated white blood cell count, unspecified (principal)
CPT/HCPCS: 36415; 81206; 81207

== ENCOUNTER 2023-11-01 10:07 | Outpatient (CLI) | payer BC, SELFPAY ==
[2023-11-01 11:07] LABS: Cholesterol 145 mg/dL (0-200); HDL Direct 34 mg/dL; Triglycerides 224 mg/dL (<150)
[2023-11-01 11:15] LABS: Hemoglobin A1C 6.2 % (<5.7)
[2023-11-01 11:18] LABS: LDL Cholesterol Direct 82 mg/dL
[2023-11-01 11:38] LABS: Thyroid Stimulating Hormone 0.273 uIU/mL (0.465-4.680)
[2023-11-01 13:43] LABS: Free T4 Free Thyroxine 1.42 ng/mL (0.78-2.19)
[2023-11-04 06:12] LABS: Triiodothyronine T3 Free 3.1 pg/mL (2.3-4.2)
== END 2023-11-01 10:08 | disposition home or self-care (01) ==
LOC: ANHLAB 10:08
PROVIDERS: PCP Family Medicine; Visit Provider Physician Assistant
DX: E03.9 Hypothyroidism, unspecified (principal); E11.9 Type 2 diabetes mellitus without complications; E78.2 Mixed hyperlipidemia
CPT/HCPCS: 36415; 80061; 83036; 84439; 84443; 84481

== ENCOUNTER 2024-02-17 13:54 | Outpatient (CLI) | payer BC, SELFPAY ==
[2024-02-17 14:08] LABS: Basophils Absolute Auto 0.1 K/mm3 (0.0-0.1); Basophils Percent Auto 0.5 % (0.2-1.2); Eosinophils Absolute Auto 0.4 K/mm3 (0-0.3); Eosinophils Percent Auto 3.6 % (0-4.4); Hematocrit 39.1 % (37.0-47.0); Hemoglobin 12.4 g/dL (12.0-15.0); Immature Granulocyte Absolute 0.05 K/mm3 (0.00-0.031); Immature Granulocyte Percent A 0.5 % (0-0.5); Lymphocytes Percent Auto 24.2 % (18.3-44.2); Mean Corpuscular HGB Conc 31.7 g/dl (32-36); Mean Corpuscular Volume 85.2 fl (80-100); Mean Platelet Volume 9.2 fl (7.4-10.4); Monocytes Absolute Auto 0.6 K/mm3 (0.1-0.6); Monocytes Percent Auto 5.7 % (2.6-8.5); Neutrophils Absolute Auto 7.1 K/mm3 (1.3-6.7); Neutrophils Percent Auto 65.5 % (45.5-73.1); Platelet Count Result 384 k/mm3 (150-375); Red Blood Count 4.59 M/mm3 (4.2-5.4); Red Cell Distribution Width 13.1 % (11.5-14.5); White Blood Count 10.8 K/mm3 (4.5-10.0)
[2024-02-17 14:13] LABS: Blood Urea Nitrogen 15 mg/dL (8-26); Carbon Dioxide 31 mmol/L (22-30); Chloride 99 mmol/L (98-109); Estimated Glomerular Filt Rate 56; Glucose 111 mg/dL (70-105); Ionized Calcium (POC) 1.18 mmol/L (1.11-1.31); Potassium 3.8 mmol/L (3.5-4.9); Sodium 139 mmol/L (138-146)
== END 2024-02-17 13:55 | disposition home or self-care (01) ==
LOC: ANHLAB 13:55
PROVIDERS: PCP Family Medicine; Visit Provider Internal Medicine Hematology & Oncology
DX: D72.829 Elevated white blood cell count, unspecified (principal)
CPT/HCPCS: 36415; 80047; 85025

== ENCOUNTER 2024-05-19 10:14 | Outpatient (CLI) | payer BC, SELFPAY ==
[2024-05-19 11:29] LABS: Alanine Aminotransferase 18 U/L (6-35); Albumin Level 4.3 g/dL (3.5-5.1); Alkaline Phosphatase 65 U/L (38-126); Anion Gap 11 mmol/L (4-12); Aspartate Amino Transferase 25 U/L (14-36); Bilirubin,Total 0.5 mg/dL (0.2-1.3); Blood Urea Nitrogen 13 mg/dL (7-17); Calcium 9.4 mg/dL (8.4-10.2); Carbon Dioxide 27 mmol/L (22-30); Chloride 100 mmol/L (98-107); Cholesterol 140 mg/dL (0-200); Estimated Glomerular Filt Rate > 60; Glucose 103 mg/dL (65-110); HDL Direct 39 mg/dL; Sodium 138 mmol/L (137-145); Triglycerides 200 mg/dL (<150)
[2024-05-19 11:40] LABS: LDL Cholesterol Direct 67 mg/dL
[2024-05-19 11:44] LABS: Hemoglobin A1C 6.6 % (<5.7)
[2024-05-19 11:48] LABS: Free T4 Free Thyroxine 1.14 ng/mL (0.78-2.19)
[2024-05-19 11:51] LABS: Creatinine Urine 201.1 mg/dL
[2024-05-19 11:55] LABS: MALB Creatinine Ratio 50.6 mg/g (0-30); Microalbumin Urine Random 101.8 mg/L (0-16.7)
[2024-05-19 11:58] LABS: Thyroid Stimulating Hormone 0.991 uIU/mL (0.465-4.680)
== END 2024-05-19 10:15 | disposition home or self-care (01) ==
LOC: ANHLAB 10:15
PROVIDERS: PCP Family Medicine; Visit Provider Physician Assistant
DX: E07.9 Disorder of thyroid, unspecified (principal); I25.10 Atherosclerotic heart disease of native coronary artery without angina pectoris; E78.2 Mixed hyperlipidemia; E03.9 Hypothyroidism, unspecified; E11.9 Type 2 diabetes mellitus without complications
CPT/HCPCS: 36415; 80053; 80061; 82043; 83036; 84439; 84443

== ENCOUNTER 2024-06-22 15:32 | Outpatient (CLI) | payer BC, SELFPAY ==
[2024-06-22 16:48] LABS: Hemoglobin 12.2 g/dL (12.0-15.0); Mean Corpuscular Volume 84.9 fl (80-100); Mean Platelet Volume 9.8 fl (7.4-10.4); Platelet Count Result 349 k/mm3 (150-375); Red Blood Count 4.36 M/mm3 (4.2-5.4); Red Cell Distribution Width 13.1 % (11.5-14.5); White Blood Count 9.6 K/mm3 (4.5-10.0)
[2024-06-22 17:36] LABS: Alanine Aminotransferase 19 U/L (6-35); Albumin Level 4.2 g/dL (3.5-5.1); Alkaline Phosphatase 71 U/L (38-126); Anion Gap 12 mmol/L (4-12); Aspartate Amino Transferase 23 U/L (14-36); Bilirubin,Total 0.3 mg/dL (0.2-1.3); Blood Urea Nitrogen 15 mg/dL (7-17); CRP 1.1 mg/dL (<1.0); Calcium 9.3 mg/dL (8.4-10.2); Carbon Dioxide 26 mmol/L (22-30); Chloride 102 mmol/L (98-107); Estimated Glomerular Filt Rate > 60; Glucose 94 mg/dL (65-110); Potassium 3.6 mmol/L (3.4-5.0); Sodium 140 mmol/L (137-145)
[2024-06-22 18:32] LABS: Erythrocyte Sedimentation Rate 53 mm/hr (0-20)
== END 2024-06-22 15:33 | disposition home or self-care (01) ==
LOC: ANHLAB 15:33
PROVIDERS: PCP Family Medicine; Visit Provider Nurse Practitioner Family
DX: K50.90 Crohn's disease, unspecified, without complications (principal)
CPT/HCPCS: 36415; 80053; 85027; 85652; 86140

== ENCOUNTER 2024-07-25 00:14 | Day surgery (SDC) | payer BC, SELFPAY ==
[2024-07-11 14:55] VITALS: BMI 34.7
--- NOTE | 2024-07-11 15:24 | PC.NURSE ---
Spoke with _PATIENT__ regarding medication _PLAVIX_. Pt. verbalizes understanding that the last dose of _PLAVIX_ is to be taken on 07/17/2024_ and the Endoscopist will instruct them when to restart after the procedure.
[2024-07-25 07:28] VITALS: BP 189/82; PULSE 91; RESP 18; TEMP 36.5; O2SAT 98; BMI 34.2
[2024-07-25 07:44] LABS: Glucose Point of Care 128 mg/dl (65-105)
[2024-07-25] MEDS: LACTATED RINGERS 1,000 ML 150 ML IV CONT (07:44)
--- NOTE | 2024-07-25 08:02 | P.PNAN_ITS ---
Anes - Initial Pre Proc Eval Procedure: Operation Date: 07/25/24 08:30 Proposed Procedures p Colonoscopy - Evan Colin MD Date/Time: 07/25/24 08:02 Surgeon: Evan Colin MD Pre Op Diagnosis: Crohn's Patient Data Age: 63 Gender: F Height: 1.57 m Weight: 85 kg Last Vital Signs Temp 97.7 F 07/25/24 07:28 Pulse 91 07/25/24 07:28 Resp 18 07/25/24 07:28 BP 189/82 H 07/25/24 07:28 Pulse Ox 98 07/25/24 07:28 O2 Del Method Room Air 07/25/24 07:28 Allergies Allergy/AdvReac Type Severity Reaction Status Date / Time adalimumab [From Humira] Allergy Intermediate rash Verified 07/25/24 07:25 Home Medications Medication Instructions Recorded Confirmed Type yjpadbcdfckk-ozorgieq-yfxbcjg-folic 1 tablet PO DAILY 07/14/19 07/25/24 History acid 400 mcg-vit K1 20 mcg tablet (One-A-Day Women's 50 Plus) nitroglycerin 0.4 mg sublingual 0.4 mg sublingual Q5M PRN Chest 07/14/19 07/25/24 History tablet Pain vedolizumab 300 mg intravenous 300 mg IV ONCE 10/01/20 07/25/24 History solution (Entyvio) B-complex with vitamin C (Super B 1 tablet PO DAILY 10/14/20 07/25/24 History Complex-Vitamin C tablet) tacrolimus 0.1 % topical ointment 1 applic topical BID PRN ECZEMA 10/14/20 07/25/24 History aspirin 81 mg tablet,delayed 81 mg PO DAILY #90 tabs 05/22/21 07/25/24 Rx release (Adult Low Dose Aspirin) tizanidine 2 mg capsule 2 mg PO TID PRN muscle spasticity 11/01/23 07/25/24 Rx #90 caps clopidogrel 75 mg tablet See Rx Instructions .Route 05/01/24 07/25/24 Rx .COMPLEX #90 tabs carvedilol 6.25 mg tablet 6.25 mg PO Q12H #180 tabs 05/12/24 07/25/24 Rx chlorthalidone 25 mg tablet 12.5 mg PO DAILY #90 tabs 05/12/24 07/25/24 Rx escitalopram oxalate 10 mg tablet 10 mg PO DAILY #90 tabs 05/12/24 07/25/24 Rx lisinopril 20 mg tablet 20 mg PO DAILY #90 tabs 05/12/24 07/25/24 Rx pantoprazole 20 mg tablet,delayed 20 mg PO QAM #90 tabs 05/12/24 07/25/24 Rx release rosuvastatin 20 mg tablet 20 mg PO DAILY #90 tabs 05/12/24 07/25/24 Rx sitagliptin phosphate 100 mg See Rx Instructions .Route 05/12/24 07/25/24 Rx tablet (Januvia) .COMPLEX #90 tabs levothyroxine 88 mcg tablet 88 mcg PO DAILY #90 tabs 05/22/24 07/25/24 Rx Laboratory Tests 07/25/24 07:42 POC Capillary Glucose 128 H mg/dl (65-105) Patient hx anesthesia problems: none Family hx anesthesia problems: none Results Review: All pre-operative results and documents have been reviewed as part of the pre-operative evaluation. [facility] Past Medical History Medical History Abdominal pain Acute right-sided thoracic back pain ESPERANZA positive (~2019) Atherosclerotic heart disease of [place] coronary artery with angina pectoris Bloating Borderline diabetes mellitus Borderline type 2 diabetes mellitus BP (high blood pressure) Bronchitis CAD (coronary artery disease) Cellulitis and abscess of left lower extremity Cerebrovascular accident (CVA) of pontine structure Crohn disease Cutaneous abscess of left lower limb Depression Diabetes Diarrhea Dietary counseling and surveillance (01/31/19) Elevated fasting glucose Elevated liver enzymes Encounter for surgical aftercare following surgery on the skin and subcutaneous tissue Epidermal cyst Erythema nodosum Essential (primary) hypertension Foot drop MARCIA (generalized anxiety disorder) GERD (gastroesophageal reflux disease) Gout, unspecified Hemiplegia of nondominant side following CVA (cerebrovascular accident) History of [place] (myocardial infarction) Hyperlipidemia, unspecified Hypersomnia Hypothyroidism Left knee DJD Localized swelling of back long-term (current) use of antithrombotics/antiplatelets Major depressive disorder, recurrent severe without psychotic features Mass of left hip region Mixed hyperlipidemia Nasal congestion Neuropathy Non-cardiac chest pain ALANA (obstructive sleep apnea) Other iodine-deficiency related thyroid disorders and allied conditions Screening for diabetes mellitus (DM) Skin lesion of back Stroke Subacute maxillary sinusitis Ulcerative proctitis with rectal bleeding URI (upper respiratory infection) UTI (urinary tract infection) Vitamin D deficiency Surgical History Surgical History H/O heart artery stent History of surgery Crohn's, 04/2019 Dr. Culp History of toe surgery LT 1st toe- 02/2015 History of tubal ligation Family History Family History Mother Hypertension Family history of elevated blood lipids Sarcoma Father Cerebrovascular accident Acute myocardial infarction Sibling Cancer female related per pt, brother-skin cancer Other Family history of malignant neoplasm Heart disease High cholesterol Social History Social History Social History: Smoking status: Never smoker Second hand tobacco smoke exposure: No Alcohol intake: current Substance use: never Substance use type: does not use Do You Feel Safe in your Home?: Yes Lack of Transportation: No Lack of Food: Never True Current Housing: I Have Housing Concerned About Future Housing: No Difficulty Paying Gas/Electric Bills: No Difficulty Paying for Meds: No Currently Unemployed: YES Education: Don't Know Difficulty w/ Childcare or Family Care: No Living arrangements: alone Occupation/Education: retired Gender identity (if verbalized by the patient): Female Sexual Orientation (if Verbalized by the Patient): Straight or Heterosexual Spiritual care concerns: No Anes - Eval Final PreProcedure Day of Procedure 07/25/24 08:02 Patient weight: obese Heart: regular rate and rhythm Lungs: clear to auscultation Airway: Mallampati scale class II Neurological: alert and oriented Last oral intake: >/= 8 hours ASA classification: IV Emergent: no Anesthetic plan: proceed Anesthesia type and monitoring: general GIVS and standard monitoring Results Review: All pre-operative results and documents have been reviewed as part of the pre- operative evaluation. CAD s/p PTCA 2011 to LAD, DM, Crohns, CVA w L sided weakness. Informed Consent: The patient's anesthetic plan and its attendant risks and benefits were discussed with the patient/family/POA. Questions were solicited and answers provided to the satisfaction of the patient/family/POA.
--- NOTE | 2024-07-25 08:31 | PM.IMHP ---
H&P: HPI History of Present Illness Date/Time: 07/25/24 08:31 Chief Complaint: Diarrhea Narrative: this patient has been diagnosed with Crohn's disease in 2019 and has been receiving Entyvio since 2019. However, she still complains of frequent diarrhea episodes and generalized abdominal discomfort. Her last colonoscopy was in 2019. There is no rectal bleeding or weight loss. 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 She is here for colonoscopy. Review of Systems Review of Systems: All systems reviewed & are unremarkable except as noted in HPI and below PMFSH Past Medical History Medical History Abdominal pain Acute right-sided thoracic back pain ESPERANZA positive (~2019) Atherosclerotic heart disease of [place] coronary artery with angina pectoris Bloating Borderline diabetes mellitus Borderline type 2 diabetes mellitus BP (high blood pressure) Bronchitis CAD (coronary artery disease) Cellulitis and abscess of left lower extremity Cerebrovascular accident (CVA) of pontine structure Crohn disease Cutaneous abscess of left lower limb Depression Diabetes Diarrhea Dietary counseling and surveillance (01/31/19) Elevated fasting glucose Elevated liver enzymes Encounter for surgical aftercare following surgery on the skin and subcutaneous tissue Epidermal cyst Erythema nodosum Essential (primary) hypertension Foot drop MARCIA (generalized anxiety disorder) GERD (gastroesophageal reflux disease) Gout, unspecified Hemiplegia of nondominant side following CVA (cerebrovascular accident) History of NH (myocardial infarction) Hyperlipidemia, unspecified Hypersomnia Hypothyroidism Left knee DJD 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/antiplatelets Major depressive disorder, recurrent severe without psychotic features Mass of left hip region Mixed hyperlipidemia Nasal congestion Neuropathy Non-cardiac chest pain ALANA (obstructive sleep apnea) Other iodine-deficiency related thyroid disorders and allied conditions Screening for diabetes mellitus (DM) Skin lesion of back Stroke Subacute maxillary sinusitis Ulcerative proctitis with rectal bleeding URI (upper respiratory infection) UTI (urinary tract infection) Vitamin D deficiency Surgical History Surgical History H/O heart artery stent History of surgery Crohn's, 04/2019 Dr. Culp History of toe surgery LT 1st toe- 02/2015 History of tubal ligation Family History Family History Mother Hypertension Family history of elevated blood lipids Sarcoma Father Cerebrovascular accident Acute myocardial infarction Sibling Cancer female related per pt, brother-skin cancer Other Family history of malignant neoplasm Heart disease High cholesterol Social History Social History Social History: Smoking status: Never smoker Second hand tobacco smoke exposure: No Alcohol intake: current Substance use: never Substance use type: does not use Do You Feel Safe in your Home?: Yes Lack of Transportation: No Lack of Food: Never True Current Housing: I Have Housing Concerned About Future Housing: No Difficulty Paying Gas/Electric Bills: No Difficulty Paying for Meds: No Currently Unemployed: YES Education: Don't Know Difficulty w/ Childcare or Family Care: No Living arrangements: alone Occupation/Education: retired Gender identity (if verbalized by the patient): Female Sexual Orientation (if Verbalized by the Patient): Straight or Heterosexual Spiritual care concerns: No Meds Home Medications and Allergies Home Medications Medication Instructions Recorded Confirmed Type tfphhugptoqs-ctgsgubf-bnvgxqh-folic 1 tablet PO DAILY 07/14/19 07/25/24 History acid 400 mcg-vit K1 20 mcg tablet (One-A-Day Women's 50 Plus) nitroglycerin 0.4 mg sublingual 0.4 mg sublingual Q5M PRN Chest 07/14/19 07/25/24 History tablet Pain vedolizumab 300 mg intravenous 300 mg IV ONCE 10/01/20 07/25/24 History solution (Entyvio) B-complex with vitamin C (Super B 1 tablet PO DAILY 10/14/20 07/25/24 History Complex-Vitamin C tablet) tacrolimus 0.1 % topical ointment 1 applic topical BID PRN ECZEMA 10/14/20 07/25/24 History aspirin 81 mg tablet,delayed 81 mg PO DAILY #90 tabs 05/22/21 07/25/24 Rx release (Adult Low Dose Aspirin) tizanidine 2 mg capsule 2 mg PO TID PRN muscle spasticity 11/01/23 07/25/24 Rx #90 caps clopidogrel 75 mg tablet See Rx Instructions .Route 05/01/24 07/25/24 Rx .COMPLEX #90 tabs carvedilol 6.25 mg tablet 6.25 mg PO Q12H #180 tabs 05/12/24 07/25/24 Rx chlorthalidone 25 mg tablet 12.5 mg PO DAILY #90 tabs 05/12/24 07/25/24 Rx escitalopram oxalate 10 mg tablet 10 mg PO DAILY #90 tabs 05/12/24 07/25/24 Rx lisinopril 20 mg tablet 20 mg PO DAILY #90 tabs 05/12/24 07/25/24 Rx pantoprazole 20 mg tablet,delayed 20 mg PO QAM #90 tabs 05/12/24 07/25/24 Rx release rosuvastatin 20 mg tablet 20 mg PO DAILY #90 tabs 05/12/24 07/25/24 Rx sitagliptin phosphate 100 mg See Rx Instructions .Route 05/12/24 07/25/24 Rx tablet (Januvia) .COMPLEX #90 tabs levothyroxine 88 mcg tablet 88 mcg PO DAILY #90 tabs 05/22/24 07/25/24 Rx Allergies Allergy/AdvReac Type Severity Reaction Status Date / Time adalimumab [From Humira] Allergy Intermediate rash Verified 07/25/24 07:25 Vital Signs Vital Signs - 24 hr 07/25/24 07:28 Temperature 97.7 F Pulse Rate 91 Respiratory Rate 18 Blood Pressure 189/82 H Pulse Oximetry 98 Oxygen Delivery Room Air Exam Const: General: cooperative and healthy appearing Resp: Effort & Inspection: normal respiratory effort and able to speak in complete sentences Auscultation: clear to auscultation bilaterally Cardio: Rate: regular rate Rhythm: regular rhythm GI: Inspection: normal to inspection GI Palp: No No hepatosplenomegaly present Auscultation: normal bowel sounds Rectal Exam: deferred Skin: General skin exam: normal color Psych: Appearance: grossly normal Mental Status: mental status grossly normal Assessment and Plan Assessment and plan (1) Crohn disease: Qualifiers: Gastrointestinal tract location: large intestine Digestive disease complication type: without complication Qualified Code(s): K50.10 - Crohn's disease of large intestine without complications Code(s): K50.90 - Crohn's disease, unspecified, without complications Status: Acute Assessment and Plan: The patient is deemed a good candidate for the procedure. Consent signed. Will proceed.
[2024-07-25] MEDS: SIMETHICONE ORAL SUSPENSION 20 MG/0.3 ML 30 ML BOTTLE 0.6 ML IRRIGATION (08:57)
[2024-07-25 09:10] VITALS: BP 116/57; PULSE 68; RESP 20; O2SAT 97
[2024-07-25 09:20] VITALS: BP 133/65; PULSE 65; RESP 16; O2SAT 98
[2024-07-25 09:30] VITALS: BP 155/69; PULSE 61; RESP 18; O2SAT 99
== END 2024-07-25 10:14 | disposition home or self-care (01) ==
PROVIDERS: PCP Family Medicine; Referring Provider Nurse Practitioner Family; Visit Provider Internal Medicine Gastroenterology
PROC: 0DJD8ZZ Inspection of Lower Intestinal Tract, Via Natural or Artificial Opening Endoscopic (ICD-10-PCS; CPT 45378; principal; 2024-07-25 08:30)
DX: Z09 Encounter for follow-up examination after completed treatment for conditions other than malignant neoplasm (principal); K50.10 Crohn's disease of large intestine without complications; D12.0 Benign neoplasm of cecum; K63.3 Ulcer of intestine; G47.10 Hypersomnia, unspecified; E03.9 Hypothyroidism, unspecified; E78.2 Mixed hyperlipidemia; E11.9 Type 2 diabetes mellitus without complications; I10 Essential (primary) hypertension; K21.9 Gastro-esophageal reflux disease without esophagitis; I25.10 Atherosclerotic heart disease of native coronary artery without angina pectoris; F41.9 Anxiety disorder, unspecified; I25.2 Old myocardial infarction; M17.12 Unilateral primary osteoarthritis, left knee; G47.33 Obstructive sleep apnea (adult) (pediatric); E61.8 Deficiency of other specified nutrient elements; E55.9 Vitamin D deficiency, unspecified; F33.9 Major depressive disorder, recurrent, unspecified; E66.9 Obesity, unspecified; Z68.34 Body mass index [BMI] 34.0-34.9, adult; Z79.02 Long term (current) use of antithrombotics/antiplatelets; Z79.82 Long term (current) use of aspirin; Z79.84 Long term (current) use of oral hypoglycemic drugs; Z98.890 Other specified postprocedural states; Z95.5 Presence of coronary angioplasty implant and graft; Z98.51 Tubal ligation status; Z86.79 Personal history of other diseases of the circulatory system; Z84.0 Family history of diseases of the skin and subcutaneous tissue; Z82.49 Family history of ischemic heart disease and other diseases of the circulatory system
CPT/HCPCS: 45385; 45380; 82948; 88305; J2003; J2704; J7120

== ENCOUNTER 2024-08-21 09:38 | Outpatient (CLI) | payer BC, SELFPAY ==
[2024-08-21 10:09] LABS: Alanine Aminotransferase 19 U/L (6-35); Albumin Level 4.5 g/dL (3.5-5.1); Alkaline Phosphatase 69 U/L (38-126); Anion Gap 4 mmol/L (4-12); Aspartate Amino Transferase 28 U/L (14-36); Bilirubin,Total 0.7 mg/dL (0.2-1.3); Blood Urea Nitrogen 16 mg/dL (7-17); Carbon Dioxide 32 mmol/L (22-30); Chloride 104 mmol/L (98-107); Cholesterol 153 mg/dL (0-200); Estimated Glomerular Filt Rate > 60; Glucose 111 mg/dL (65-110); HDL Direct 40 mg/dL; Potassium 4.5 mmol/L (3.4-5.0); Sodium 140 mmol/L (137-145); Triglycerides 196 mg/dL (<150)
[2024-08-21 10:10] LABS: Hemoglobin A1C 6.4 % (<5.7)
[2024-08-21 10:22] LABS: LDL Cholesterol Direct 73 mg/dL
[2024-08-21 10:47] LABS: Hepatitis B Surface Antigen Negative (Negative)
[2024-08-21 11:04] LABS: Hepatitis B Surface Anti Res Negative
[2024-08-22 07:13] LABS: Hepatitis B Core Ab Total NON-REACTIVE (NON-REACTIVE)
[2024-08-24 14:34] LABS: NIL 0.02 IU/mL; Quantiferon TB Plus, 1T NEGATIVE (NEGATIVE); TB2-NIL 0.03 IU/mL
== END 2024-08-21 09:39 | disposition home or self-care (01) ==
PROVIDERS: PCP Family Medicine; Referring Provider Physician Assistant; Visit Provider Nurse Practitioner Family
DX: K50.10 Crohn's disease of large intestine without complications (principal); R19.7 Diarrhea, unspecified; E11.9 Type 2 diabetes mellitus without complications; E78.2 Mixed hyperlipidemia; Z79.899 Other long term (current) drug therapy
CPT/HCPCS: 36415; 80053; 80061; 83036; 86480; 86704; 86706; 87340

== ENCOUNTER 2024-09-18 09:10 | Outpatient (CLI) | payer BC, SELFPAY ==
[2024-09-18 09:29] LABS: Basophils Absolute Auto 0.1 K/mm3 (0.0-0.1); Basophils Percent Auto 0.4 % (0.2-1.2); Eosinophils Absolute Auto 0.2 K/mm3 (0-0.3); Eosinophils Percent Auto 1.7 % (0-4.4); Hematocrit 40.7 % (37.0-47.0); Hemoglobin 13.1 g/dL (12.0-15.0); Immature Granulocyte Absolute 0.04 K/mm3 (0.00-0.031); Immature Granulocyte Percent A 0.3 % (0-0.5); Lymphocytes Absolute Auto 3.76 K/mm3 (0.9-3.2); Lymphocytes Percent Auto 31.9 % (18.3-44.2); Mean Corpuscular HGB Conc 32.2 g/dl (32-36); Mean Corpuscular Hemoglobin 27.6 pg (26-34); Mean Corpuscular Volume 85.7 fl (80-100); Monocytes Absolute Auto 0.6 K/mm3 (0.1-0.6); Monocytes Percent Auto 5.2 % (2.6-8.5); Neutrophils Absolute Auto 7.1 K/mm3 (1.3-6.7); Neutrophils Percent Auto 60.5 % (45.5-73.1); Platelet Count Result 358 k/mm3 (150-375); Red Blood Count 4.75 M/mm3 (4.2-5.4); Red Cell Distribution Width 13.4 % (11.5-14.5); White Blood Count 11.8 K/mm3 (4.5-10.0)
[2024-09-18 09:33] LABS: Blood Urea Nitrogen 18 mg/dL (8-26); Carbon Dioxide 27 mmol/L (22-30); Chloride 99 mmol/L (98-109); Estimated Glomerular Filt Rate > 60; Glucose 92 mg/dL (70-105); Potassium 3.9 mmol/L (3.5-4.9); Sodium 138 mmol/L (138-146)
--- OUTSIDE RECORDS SUMMARY | 2024-09-18 09:42 | XMS_ITS | Clinical Summary ---
Author Organization [facility] [address] Address [address] [place] [address] Care Team Providers Care Rn Icu Name Role Phone Sowmya Moody MD Primary Care Provider Nigel Al DPM Unavailable [phone] Allergies No known active allergies Medications levothyroxine (SYNTHROID) 100 mcg tabletIndication s:hypothyroidism take 1 tablet (100MCG) by oral route every day 0 2 Active multivitamin (ONE DAILY) tablet tabletIndication s:Vitamin Deficiency take 1 tablet by oral route every day with food 0 2 Active lisinopril (PRINIVIL,ZESTRI L) 10 mg tabletIndication s:hypertension take 1 tablet (10MG) by oral route every day 0 0 8 Active Additional Information Patient taking differently: 20 mg, Informant: Self, Reported on 09/16/2023 carvedilol (COREG) 6.25 mg tabletIndication s:hypertension take 1 tablet (6.25MG) by oral route 2 times every day with food 0 2 Active clopidogrel (PLAVIX) 75 mg tabletIndication s:Myocardial Reinfarction Prevention Take one by mouth one time per day 0 0 8 Active Additional Information Patient taking differently:75 mgoral Daily, Informant: Self, Reported on 09/16/2023 sitagliptin phosphate (JANUVIA ORAL)Indications :diabetes insipidus 100 mg daily 9 Active 0.9 % sodium chloride ([facility] sodium chloride 0.9%) injectionIndicat ions:line care Infuse 10 mL into a venous catheter as needed for line care Given in office IV infusion patient has an iv started each time. 0 Active chlorthalidone 25 mg tablet Take 0.5 tablets (12.5 mg total) by mouth daily Active vitamin B complex capsuleIndicatio ns:Vitamin Deficiency Take 1 capsule by mouth daily Active escitalopram (LEXAPRO) 20 mg tabletIndication s:Generalized Anxiety Disorder Take 1 tablet by mouth daily Active aspirin 81 mg enteric coated tabletIndication s:Myocardial Reinfarction Prevention Take 1 tablet by mouth daily Active tacrolimus (PROTOPIC) 0.1 % ointmentIndicati ons:Intractable Eczema Apply 1 application topically 2 (two) times a day. Indications: eczema skin condition resisting treatment 1 Active cefadroxil (DURICEF) 500 mg capsule [The details of the medication are not available because there are pending changes by a home health clinician.] 20 capsule 1 Active Additional Information Patient not taking.Reason: Other (No longer needed), Informant: Self, Reported on 01/20/2023 HYDROcodone-acet aminophen (NORCO) 5-325 mg per tabletIndication s:Pain [The details of the medication are not available because there are pending changes by a home health clinician.] 20 tablet 1 Active Additional Information Patient not taking.Reason: Other (No longer needed), Informant: Self, Reported on 01/20/2023 ibuprofen (ADVIL,MOTRIN) 800 mg tablet Take 1 tablet (800 mg total) by mouth every 8 (eight) hours as needed for pain 30 tablet 1 Active Additional Information Patient not taking.Reported on 09/09/2021 rosuvastatin (CRESTOR) 10 mg tabletIndication s:hyperlipidemia 2 Active nitroglycerin (NITROSTAT) 0.4 mg SL tabletIndication s:acute myocardial infarction Place 1 tablet (0.4 mg total) under the tongue every 5 (five) minutes as needed for chest pain 25 tablet [address] (PROTONIX) 20 mg EC tabletIndication s:GERD Take 1 tablet (20 mg total) by mouth daily Active tiZANidine (ZANAFLEX) 2 mg tabletIndication s:Muscle Spasm Take 1 tablet (2 mg total) by mouth every 8 (eight) hours as needed for muscle spasms (back pain) Active vedolizumab (ENTYVIO) 300 mg recon solnIndications: Crohn's Disease Infuse 5 mL (300 mg total) into a venous catheter every 8 (eight) weeks Infuse 300mg in 250ml normal saline over 30 minutes every 8 weeks 4 07/27/20 25 Active acetaminophen (TYLENOL) 500 mg tabletIndication s:infusion pre-medication Take 1 tablet (500 mg total) by mouth every 8 (eight) weeks Take by mouth 30 minutes prior to Vedolizumab infusion 4 07/27/20 25 Active diphenhydrAMINE 25 mg capsuleIndicatio ns:infusion pre-medication Take 1 tablet/capsule (25 mg total) by mouth every 8 (eight) weeks Take by mouth 30 minutes prior to Vedolizumab infusion 4 07/27/20 25 Active Active Problems Problem Noted Date Diagnosed Date Coronary artery disease invo lving bent[place] coronary artery of [place] heart without angina pectoris 08/25/2018 History of coronary artery stent placement 08/25 Hypertension 01/06/2014 Overview (11/25/2016): HYPERTENSION NOS Cerebral artery occlusion 01/06/2014 Overview (11/25/2016): CRBL ART OCL NOS W INFRC Encounters Date Type Department Care Team Description 09/14/2024 7:30 AM PHARMACY RESIDENT Home Care Visit [address] [place] [address] Jerry Bella, RN NON OASIS RECERTIFICATION 07/31/2024 9:00 AM PHARMACY RESIDENT Home Care Visit [address] [place] [address] Jerry Bella, MARGARET GRACIA INFUSION TREATMENT ROOM 07/28/2024 Orders Only [facility] Home [address] [address] Brian Mayers, [facility] from Last 3 Months Surgical History Surgery Date Site/Laterality Comments CHOLECYSTECTOMY 08/23/1997 - 08/22/1998 lap igor TUBAL LIGATION Bilateral tubal ligation CORONARY ANGIOPLASTY WITH STENT PLACEMENT 11/21/2010 - 12/20/2010 cardiac cath eith stent to LAD KNEE ARTHROSCOPY 08/23/2011 - 08/22/2012 Left TOE SURGERY 02/20/2015 - 03/22/2015 Left HARDWARE PRESENT COLONOSCOPY 04/23/2019 - 05/22/2019 Medical History Medical History Date Comments Hx Other Medical Wrist fx Hypertension Hypertension CAD (coronary artery disease) Myocardial infarct, old 2010 Hyperlipidemia GERD (gastroesophageal reflux disease) Crohn's disease (CMS/HCC) (HCC) CONTROLLED WITH INFUSIONS Hypothyroidism Type 2 diabetes mellitus (HCC) Cerebrovascular accident (CVA) (HCC) 2006 LEFT SIDE WEAKNESS DOES NOT USES CANE OR EQUIPMENT WALKS SLOWLY Depression Obesity Social History Tobacco Use Types Packs/Day Years Used Date Smoking Tobacco: Never Smokeless Tobacco: Never Tobacco Cessation:Counseling Given: Not Answered Alcohol Use Standard Drinks/Week Comments No 0 (1 standard drink = 0.6 oz pur e alcohol) OASIS D0700: Social Isolation Answer Da te Recorded Frequency of experiencing loneliness or isolatio n Never 09/14/2024 AUDIT-C Answer Date Recorded Q1: How often do you have a drink containing alc ohol? Never 07/16/2021 Average Number of Drinks Not on file 021 Q3: How often do you have si x or more drinks on one occasion? Never 07/16/2021 Comments Unknown Sex and Gender Information Value Date Recorded Sex Assigned at Not on file Legal Sex Female 6:51 PM PHARMACY RESIDENT Gender Identity Not on file Sexual Orientation Not on file Obstetrics History Last Filed Vital Signs Vital Sign Reading Time Taken Comments Blood Pressure 123/56 07/31/2024 10:05 AM PHARMACY RESIDENT Pulse 63 07/31/2024 10:05 AM PHARMACY RESIDENT Temperature 36.6 ??C (97.9 ??F) 07/31/2024 10:[address] Respiratory Rate 16 07/31/2024 10:05 AM PHARMACY RESIDENT Oxygen Saturation 98% 07/31/2024 10:05 AM PHARMACY RESIDENT Inhaled Oxygen Concentration - - Weight 87.1 kg (192 lb) 04/10/2024 9:06 AM CDT Height 157.5 cm (5' 2 ) 07/31/2024 9:05 AM PHARMACY RESIDENT Body Mass Index 35.12 04/10/2024 9:06 AM CDT Plan of Treatment Upcoming Encounters Date Type Department Care Team (Late st Contact Info) Description 09/14/2024 Plan of Care Documentation [facility] - [address] [place] [address] Health Maintenance Due Date Last Done Comments Breast Cancer Screening-Mammogram 1960 Colon Cancer Screening-Colonoscopy 1958 Depression Screening 1958 Hepatitis C Screening 1958 Osteoporosis Screening-Bone Density Scan 1958 DTaP/Tdap/Td Vaccine (1 - Tdap) 1969 Hepatitis B Screening 1976 Zoster Vaccine (1 of 2) 2008 Fall Risk Assessment 07/11/2022 07/11/2021 Pneumococcal vaccine 65+ (1 of 1 - PCV) 2023 Well Visit 65+ 2023 Influenza Vaccine (#1) 2024 9, 05/22/2018, 05/18/2017, Additional history exists Medical Devices Implanted Type Area Metaphysics Teacher Device Identifier Shelf Expiration Date Model / Serial / Lot Hardware Left: Toes Description:LEFT GREAT TOE Insurance [facility] Care Teams Rn Icu Relationship Specialty Start Date End Date Sowmya Moody MD [address] [facility] [address] [place] [address] PCP - General 11/20/16 Nigel Al DPM [address] [facility] [address] [place] [address] Consulting Physician Podiatry 07/16/21
--- OUTSIDE RECORDS SUMMARY | 2024-09-18 09:42 | XMS_ITS | Referral Summary ---
Author Organization [facility] Address [address] [place] [address] Care Team Providers Care Construction Recruiter Name Role Phone Unavailable Primary Care Provider Unavailabl e Medications aspirin 81 mg tablet Take 81 mg by mouth 1 (one) time each day. Active carvediloL (COREG) 6.25 mg tablet Take 6.25 mg by mouth every 12 (twelve) hours. 04/15/2022 Active b complex vitamins capsule Take 1 capsule by mouth 1 (one) time each day. Active Januvia 100 mg tablet Take 100 mg by mouth 1 (one) time each day. 04/01/2022 Active rosuvastatin (CRESTOR) 10 mg tablet Take 10 mg by mouth 1 (one) time each day. 05/27/2022 Active omeprazole (PriLOSEC) [address] capsule Take 20 mg by mouth 1 (one) time each day. 04/01/2022 Active omega-3 fatty acids 1,000 mg capsule Take by mouth. Active lisinopriL (PRINIVIL,ZESTRI L) 20 mg tablet 05/30/2022 Act laure levothyroxine (SYNTHROID, UNITHROID) 100 mcg tablet Take 100 mcg by mouth 1 (one) time each day. 05/27/2022 Active ibuprofen (ADVIL,MOTRIN) 800 mg tablet Take 800 mg by mouth. 07/16/2021 Active HYDROcodone-acet aminophen (NORCO) 5-325 mg tablet Take 1 tablet by mouth. 07/16/2021 Active escitalopram (LEXAPRO) 20 mg tablet Take 20 mg by mouth 1 (one) time each day. 04/01/2022 Active cefadroxil 500 mg capsule Take 500 mg by mouth in the morning and 500 mg in the evening. 07/16/2021 Active clopidogreL (PLAVIX) 75 mg tablet Take 75 mg by mouth 1 (one) time each day. 04/15/2022 Active chlorthalidone (HYGROTON) 25 mg tablet Take 12.5 mg by mouth 1 (one) time each day. 05/27/2022 Active triazolam (HALCION) 0.25 mg tablet Take one tablet an hour prior to procedure. Bring other two tabs to appt. 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 3 tablet 06/08/2022 Active amoxicillin-pot clavulanate (AUGMENTIN) 875-125 mg tablet Take 1 tablet by mouth in the morning and 1 tablet in the evening. 14 tablet 06/09/2022 Active pseudoephedrine ER (Sudafed 24 Hour) 240 mg tablet extended release 24 hr 24 Hour tablet Take 1 tablet (240 mg total) by mouth 1 (one) time each day for 14 days. 20 tablet 06/09/2022 Active chlorhexidine (PERIDEX) 0.12 % solution Swish 15 mL for one minute twice daily. Spit out. 480 mL 06/09/2022 Active HYDROcodone-acet aminophen (NORCO) 5-325 mg tablet Take 1 tablet by mouth every 4 (four) hours if needed for severe pain. 16 tablet 06/09/2022 Active Active Problems Problem Noted Date Diagnosed Date Coronary artery disease invo lving [place] coronary artery of [place] heart without angina pectoris 08/25/2018 History of coronary artery stent placement 08/25 Cerebral artery occlusion 01/06/2014 Overview (06/02/2022): CRBL ART OCL NOS W INFRC Hypertension 01/06/2014 Overview (06/02/2022): HYPERTENSION NOS Social History Tobacco Use Types Packs/Day Years Used Date Smoking Tobacco: Never Assessed Comments Unknown Sex and Gender Information Value Date Recorded Sex Assigned at Not on file Legal Sex Female 12:54 PM PDT Gender Identity Not on file Sexual Orientation Not on file Plan of Treatment Not on file Insurance [employer] [place] [employer] AND BLUE SHIELD [facility] FEDERAL BLUE CROSS BLUE [facility] [place] FED[employer] [employer] AND BLUE [facility] FEDERAL
--- OUTSIDE RECORDS SUMMARY | 2024-09-18 09:42 | XMS_ITS | Encounter Summary ---
Author Organization [facility] [place] [address] [place] [address] Care Team Providers Care Precision Structural Metal Fitter Name Role Phone Unavailable Primary Care Provider Unavailabl e Encounter Details Date Type Department Care Team (Late st Contact Info) Description 06/05/2022 Telephone [facility] [address] [place] [address] Melchor Jeffrey, DESIREE [address] [place] [address] Social History Tobacco Use Types Packs/Day Years Used Date Smoking Tobacco: Never Assessed Comments Unknown Sex and Gender Information Value Date Recorded Sex Assigned at Not on file Legal Sex Female 12:54 PM PDT Gender Identity Not on file Sexual Orientation Not on file COVID-19 Exposure Response Date Recorded In the last 10 days, have yo u been in contact with someone who was confirmed or suspected to have Coronavirus/COVID-19? No / Unsure 06/02/2022 9:04 AM CDT documented as of this encounter Miscellaneous Notes * Telephone Encounter - Donya Hughes - 06/05/2022 9:42 AM CDT requesting pain medications to be called to her Pharmacy too documented in this encounter Plan of Treatment Not on file documented as of this encounter Visit Diagnoses Not on filedocumented in this encounter
--- OUTSIDE RECORDS SUMMARY | 2024-09-18 09:42 | XMS_ITS | Clinical Summary ---
Author Organization [facility] Address [address] [place] [address] Care Team Providers Care Trap Puller Name Role Phone Sowmya Moody MD Primary Care Provider [phone] Allergies No known active allergies Medications aspirin (ECOTRIN EC) 81 mg Tablet, Delayed Release (E.C.) Take 81 mg by mouth daily. Active carvediloL (COREG) 6.25 mg tablet Take 6.25 mg by mouth every 12 hours. Active chlorthalidone (HYGROTON) 25 mg tablet Take 12.5 mg by mouth daily. 05/27/2022 Active clopidogreL (PLAVIX) 75 mg Tablet Take 75 mg by mouth daily. Active escitalopram oxalate (LEXAPRO) 20 mg tablet Take 20 mg by mouth daily. 04/01/2022 Active levothyroxine 100 mcg tablet Take 100 mcg by mouth daily. Active lisinopriL (PRINIVIL) 20 mg tablet Take 20 mg by mouth daily. Active pantoprazole (PROTONIX) 20 mg Tablet, Delayed Release (E.C.) Take 20 mg by mouth daily. Active rosuvastatin (CRESTOR) 10 mg tablet Take 10 mg by mouth daily. 09/07/2021 Active Januvia 100 mg Tablet Take 100 mg by mouth daily. Active Active Problems No known active problems Encounters Date Type Department Care Team Description 09/12/2024 External Device Data ST[facility] ABSTRACTION Provider, Abstract 09/05/2024 External Device Data ST[facility] ABSTRACTION Provider, Abstract 08/29/2024 External Device Data [place] ABSTRACTION Provider, Abstract 06/21/2024 External Device Data ST[place] ABSTRACTION Provider, Abstract from Last 3 Months Family History Medical History Relation Name Comments Skin Cancer Brother No Known Problems Daughter Heart Disease Father Cancer Mother Heart Disease Sister 1 Cancer Sister 2 No Known Problems Son Relation Name Status Comments Brother Alive Daughter Alive Father Mother Sister 1 Sister 2 Alive Son Alive Social History Tobacco Use Types Packs/Day Years Used Date Smoking Tobacco: Never Smokeless Tobacco: Never Tobacco Cessation:Counseling Given: Not Answered Alcohol Use Standard Drinks/Week Comments Never 0 (1 standard drink = 0.6 oz pur e alcohol) Comments Unknown Sex and Gender Information Value Date Recorded Sex Assigned at Not on file Legal Sex Female 10:21 AM CDT Gender Identity Not on file Sexual Orientation Not on file Last Filed Vital Signs Vital Sign Reading Time Taken Comments Blood Pressure 123/71 02/17/2024 2:33 PM CDT Pulse 75 02/17/2024 2:33 PM CDT Temperature 36.6 ??C (97.8 ??F) 02/17/2024 2:33 PM CD T Respiratory Rate 18 02/17/2024 2:33 PM CDT Oxygen Saturation 95% 02/17/2024 2:33 PM CDT Inhaled Oxygen Concentration - - Weight 87.1 kg (192 lb) 02/17/2024 2:33 PM CDT Height 157.5 cm (5' 2 ) 06/25/2023 2:09 PM CDT Body Mass Index 35.12 06/25/2023 2:09 PM CDT Plan of Treatment Upcoming Encounters Date Type Department Care Team (Late st Contact Info) Description 09/18/2024 10:15 AM 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 [address] [place] [address] Sarbjit Calvo MD [address] [facility] [address] [place] [address] Arrived Health Maintenance Due Date Last Done Comments Pre-Diabetes and Diabetes Screening 1958 DTAP/TDAP/TD VACCINES (1 - Tdap) 1977 BREAST CANCER SCREENING 1998 COLORECTAL SCREENING 2003 Colorectal Cancer Screening 2003 FIT-DNA Q 3 years 2003 FIT/FOBT Q 1 year 2003 Flex Sig/CT Colonography Q 5 years 2003 PNEUMOCOCCAL VACCINE 65+ YEARS (1 of 1 - PCV) 08/14/20 08 ZOSTER VACCINE (1 of 2) 2008 OSTEOPOROSIS SCREENING 2023 INFLUENZA VACCINE (#1) 2024 RSV VACCINE (60+ or ) (1 - 1-dose 75+ series) 2033 Insurance FEDERAL Care Teams Trap Puller Relationship Specialty Start Date End Date Sowmya Moody MD PCP - General Family Practice 05/14/23
--- OUTSIDE RECORDS SUMMARY | 2024-09-18 09:42 | XMS_ITS | Clinical Summary ---
Author Organization [facility] Address [address] [place] [address]. [place], [place] [address] [place] [address] Care Team Providers Care Draw End Hand Name Role Phone Sowmya Moody MD Primary Care Provider [phone] Social History Tobacco Use Types Packs/Day Years Used Date Smoking Tobacco: Never Assessed Comments Unknown Sex and Gender Information Value Date Recorded Sex Assigned at Not on file Legal Sex Female 4:14 PM CDT Gender Identity Not on file Sexual Orientation Not on file Plan of Treatment Health Maintenance Due Date Last Done Comments Colorectal Cancer Screening Colonoscopy (10 Years) 1958 Hepatitis C 1976 DTaP, Tdap and Td Vaccines ( 1 - Tdap) 1977 Mammogram Screening 1998 Zoster Vaccines (1 of 2) 2008 Dexa Scan (General) 2023 Pneumococcal Vaccine: 65+ Ye ars (1 of 1 - PCV) 2023 COVID-19 Vaccine ( - 2023-2 5 season) 2024 Influenza Adult (#1) 2024 RSV Immunization or 60+ Years (1 - 1-dose 75+ series) 2033 Meningococcal B Vaccine Aged Out No l onger eligible based on patient's age to complete this topic Meningococcal Vaccine Aged Out No aurora angel eligible based on patient's age to complete this topic RSV Immunizations Under 20 Months Aged Out No longer eligible based on patient's age to complete this topic Care Teams Draw End Hand Relationship Specialty Start Date End Date Sowmya Moody MD [address] [facility] [address] [place] [address] PCP - General 04/28/16
--- OUTSIDE RECORDS SUMMARY | 2024-09-18 09:42 | XMS_ITS | Continuity of Care Document ---
Author Organization [facility] Address [address] [place] [address] Phone Care Team Providers Care Vendor Manager Name Role Phone Blair OD, Chucky Unavailable Unavailable Procedures Procedure Date Cntct Lens Hydrophilic Toric Or Prism Ba llast Medical Tax Contact Lens Check Eye Exam & Treatment Refraction Eye Exam Established Pt Advance Directives Directive Yes / No Effective Date File Name No Information Encounters Encounter Description Practice Location Reason(s) For Visit Diagnoses Date Provider Providers Copied on Encounter [facility], [address] [place] [address] [address], [place], [place], [id number], [place] tel:[phone] [facility] [place] No Information 0 Blair OD Chucky. [address] [facility] [place] , [address], [place], [place], [facility] [place], [place]. tel:[phone] [facility], [id number] [place] [address] [address], [place], [place], [id number], [place] tel:[phone] SEC [facility] No Information 7 0 Blair OD Chucky. [address] [facility] , [address], [place], [address], [place]. tel:[phone] [facility], [address] [place] [address] [address], [place], [place], [id number], [place] tel:[phone] [facility] No Information 7-201 0 Blair OD Chucky. [address] [facility] , [address], [place], [address], [place]. tel:[phone] [facility], [address] [facility] [address], [place], [place], [id number], [place] tel:[phone] SEC [facility] No Information [address] [facility] , [address], [place], [address], [place]. tel:[phone] Family History Family Member Type Diagnosis Age [...]
--- OUTSIDE RECORDS SUMMARY | 2024-09-18 09:42 | XMS_ITS | Encounter Summary ---
Author Organization [facility] Address [address] [facility] [address] [place] [address] Care Team Providers Care C Developer Name Role Phone Sowmya Moody MD Primary Care Provider Nigel Al DPM Unavailable [phone] Encounter Details Date Type Department Care Team (Late st Contact Info) Description 11/24/2016 Orders Only [facility] Provider, MD Vikas [address] [place] [address] Social History Tobacco Use Types Packs/Day Years Used Date Smoking Tobacco: Never Assessed Alcohol Use Standard Drinks/Week Comments No 0 (1 standard drink = 0.6 oz pur e alcohol) Comments Unknown Sex and Gender Information Value Date Recorded Sex Assigned at Not on file Legal Sex Female 6:51 PM CATHODE RAY TUBE SALVAGE PROCESSOR Gender Identity Not on file Sexual Orientation Not on file documented as of this encounter Plan of Treatment Upcoming Encounters Date Type Department Care Team (Late st Contact Info) Description 09/14/2024 Plan of Care Documentation [address] [address] [address] [place] [address] documented as of this encounter Procedures Procedure Name Priority Date/Time Associated Diagnosis Comments CARDIOLOGY REPORT 11/24/2016 documented in this encounter Results * CARDIOLOGY REPORT (11/24/2016) Anatomical Region Laterality Modality Other Narrative 11/24/2016 Ordered by an unspecified provider. us Historical Provider [facility] GAMALIEL PONCE Final Result documented in this encounter Visit Diagnoses Not on filedocumented in this encounter Care Teams C Developer Relationship Specialty Start Date End Date Sowmya Moody MD [address] [email or web address] [address] [place] [address] PCP - General 11/20/16 Nigel Al DPM [address] [facility] [[email or web address] [address] [place] [address] Consulting Physician Podiatry 07/16/21 documented as of this encounter
--- OUTSIDE RECORDS SUMMARY | 2024-09-18 09:42 | XMS_ITS | CCD ---
Author Organization [facility] Address [address] [place] [address] Care Team Providers Care Legal Recovery Specialist Name Role Phone Unavailable Primary Care Provider [...] other two tabs to appt. 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 3 tablet 06/08/2022 Active amoxicillin-pot clavulanate [...] Diagnosed Date Coronary artery disease invo lving [place] coronary artery of [place] heart without angina pectoris 08/25/2018 History of [...]
--- OUTSIDE RECORDS SUMMARY | 2024-09-18 09:42 | XMS_ITS | Encounter Summary ---
Author Organization [facility] [place] [place] Address [address] [place] [address] Care Team Providers Care Intellectual Property Counsel Name Role Phone Unavailable Primary Care Provider Unavailabl e Encounter Details Date Type Department Care Team (Late st Contact Info) Description 06/05/2022 Telephone [facility] [address] [place] [address] Melchor Jeffrey, DESIREE [address] [place] [address] Social History Tobacco Use Types Packs/Day Years [...] Telephone Encounter - Donya Hughes - 06/05/2022 9:37 AM CDT called requesting that a valium can be called to the Pharmacy so she can take it before the 06/09/22 appointment documented in this encounter Plan of Treatment Not on file documented as of this encounter Visit Diagnoses Not on filedocumented in this encounter
--- OUTSIDE RECORDS SUMMARY | 2024-09-18 09:42 | XMS_ITS | Clinical Summary ---
Author Organization [facility] Address [address] [place] [address] Care Team Providers Care Extracorporeal Technician Name Role Phone Unavailable Primary Care Provider [...] other two tabs to appt. 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 3 tablet 06/08/2022 Active amoxicillin-pot clavulanate [...] Diagnosed Date Coronary artery disease invo lving [place] coronary artery of [place] heart without angina pectoris 08/25/2018 History of [...] Health Maintenance Due Date Last Done Comments Dental Oral Exam 1960 Dental Prophylaxis 1958 Dental X-Ray: Bitewings 1958 Dental X-Ray: Full Mouth 1958 Dental X-Ray: Panoramic 06/11/2025 06/10/2022 Meningococcal B Vaccine Aged Out No l onger eligible based on patient's age to complete this topic Insurance [facility] FEDERAL [facility] FEDERAL
--- OUTSIDE RECORDS SUMMARY | 2024-09-18 09:42 | XMS_ITS | Encounter Summary ---
Author Organization [facility] Address [address] [place] [address] Care Team Providers Care Bore Miner Operator Name Role Phone Unavailable Primary Care Provider Unavailabl e Prior Encounters Date Type Department Care Team Description 06/09/2022 Travel 06/09/2022 9:00 AM CDT Office Visit [facility] [address] [place], [place] [address]catherine [place] [address] Melchor Jeffrey DDS 06/08/2022 Orders Only [facility] [address] [place], [place] [address]catherine [place] [address] Melchor Jeffrey DDS 06/05/2022 Telephone [facility] [address] [place], [place] [address]catherine [place] [address] Melchor Jeffrey DDS 06/05/2022 Telephone [facility] [address] [place], [place] [address]catherine [place] [address] Melchor Jeffrey DDS 06/02/2022 Travel 06/02/2022 9:30 AM CDT Consult [facility] [address] [place], [place] [address]catherine [place] [phone] Luis Rodriguez, DESIREE Plan of Treatment Not on file Procedures Procedure Name Priority Date/Time Associated Diagnosis Comments 14 UL PRIMARY CLOSURE OF A SINUS PERFORATION Routine 06/09/2022 9:00 AM CDT 14 EXTRACTION, ERUPTED TOOTH REQUIRING REMOVAL OF BONE AND/OR SECTIONING OF TOOTH Routine 06/09/2022 9:00 AM CDT LIMITED ORAL EVALUATION - PROBLEM FOCUSED Routine 06/09/2022 9:00 AM CDT ORAL SEDATION Routine 06/09/2022 9:00 AM CDT 13,14 PULP VITALITY TESTS Routine 06/02/2022 9:30 AM CDT CHLORINE OPERATOR CONSULT Routine 06/02/2022 9:30 AM CDT Visit Diagnoses Not on file Insurance [place] [facility] [place] [facility] FEDERAL
--- OUTSIDE RECORDS SUMMARY | 2024-09-18 09:42 | XMS_ITS | Referral Summary ---
Author Organization [facility] [address] Address [address] [place] [address] Care Team Providers Care Piano Tuner Name Role Phone Sowmya Moody MD Primary Care Provider Nigel Al DPM Unavailable Encounters Date Type Department Care Team Description 09/14/2024 7:30 AM CAREER DEVELOPMENT DIRECTOR Home Care Visit [address] [place] [address] Jerry Bella RN SN NON OASIS RECERTIFICATION 07/31/2024 9:00 AM CAREER DEVELOPMENT DIRECTOR Home Care Visit [address] [place] [address] Jerry Bella RN SN INFUSION TREATMENT ROOM 07/28/2024 Orders Only [facility] [address] [place] [address] Brian Mayers, [facility] from Last 3 Months Allergies No known active allergies Medications levothyroxine [...] daily 9 Active 0.9 % sodium chloride ([facility] sodium chloride 0.9%) injectionIndicat ions:line care [...] (11/25/2016): CRBL ART OCL NOS W INFRC Social History Tobacco Use Types Packs/Day Years [...] on file Legal Sex Female 6:51 PM CAREER DEVELOPMENT DIRECTOR Gender Identity Not on file Sexual Orientation Not on file Last Filed Vital Signs Vital Sign Reading Time Taken Comments Blood Pressure 123/56 07/31/2024 10:05 AM CAREER DEVELOPMENT DIRECTOR Pulse 63 07/31/2024 10:05 AM CAREER DEVELOPMENT DIRECTOR Temperature 36.6 ??C (97.9 ??F) 07/31/2024 10:[address] Respiratory Rate 16 07/31/2024 10:05 AM CAREER DEVELOPMENT DIRECTOR Oxygen Saturation 98% 07/31/2024 10:05 AM CAREER DEVELOPMENT DIRECTOR Inhaled Oxygen Concentration - - Weight 87.1 kg (192 lb) 04/10/2024 9:06 AM CDT Height 157.5 cm (5' 2 ) 07/31/2024 9:05 AM CAREER DEVELOPMENT DIRECTOR Body Mass Index 35.12 04/10/2024 9:06 AM CDT Plan of Treatment Upcoming Encounters Date Type Department Care Team (Late st Contact Info) Description 09/14/2024 Plan of Care Documentation [address] [place] [address] Medical Devices Implanted Type Area Rotary Drill Rig Operator Device Identifier Shelf Expiration Date Model / Serial / Lot Hardware Left: Toes Description:LEFT GREAT TOE Insurance BLUE ACCESS ME BLUE [facility] Care Teams Piano Tuner Relationship Specialty Start Date End Date Sowmya Moody MD [address] [place] [address] PCP - General 11/20/16 Nigel Al, DPM [address] [facility] [address] [place] [address] Consulting Physician Podiatry 07/16/21
--- OUTSIDE RECORDS SUMMARY | 2024-09-18 09:42 | XMS_ITS ---
Author Organization [facility] Address [address] [place] [address] Care Team Providers Care Supervisor Finishing Department Name Role Phone Unavailable Unavailable Unavailable Surgery Details Not on file Complications Check Surgery Details section. Procedure Estimated Blood Loss Check Surgery Details section. Procedure Findings Check Surgery Details section. Procedure Specimens Taken Check Surgery Details section.
== END 2024-09-18 09:11 | disposition home or self-care (01) ==
LOC: ANHLAB 09:11
PROVIDERS: PCP Family Medicine; Visit Provider Internal Medicine Hematology & Oncology
DX: D72.829 Elevated white blood cell count, unspecified (principal)
CPT/HCPCS: 36415; 80047; 85025

== ENCOUNTER 2024-10-04 13:20 | Emergency (ER) | payer BC, SELFPAY ==
[2024-10-04 13:30] VITALS: BP 134/66; PULSE 107; RESP 16; TEMP 37.6; O2SAT 98
--- NOTE | 2024-10-04 13:48 | ED.NAVMDI ---
HPI - Nausea/Vomiting/Diarrhea General Chief complaint: Nausea/Vomiting/Diarrhea Stated complaint: nauseated, hot and sweaty Time Seen by Provider: 10/04/24 13:51 Source: patient and RN notes reviewed Mode of arrival: ambulatory Limitations: no limitations History of Present Illness HPI Narrative: 64-year-old female presents concern for cough, feeling hot and sweaty, nausea vomiting. Reports symptoms started yesterday. She reports she is urinating a normal amount. She is trying to drink fluids but she is not eating much food. She denies diarrhea MD elicited complaint: nausea and vomiting Related Data Home Medications ?Medication ?Instructions ?Recorded ?Confirmed ?Last Taken ?Type msdzhksykupe-updgzeri-dlgcbyo-folic 1 tablet PO DAILY 07/14/19 10/04/24 1 Day Ago History acid 400 mcg-vit K1 20 mcg tablet ~07/24/24 (One-A-Day Women's 50 Plus) nitroglycerin 0.4 mg sublingual 0.4 mg sublingual Q5M PRN Chest 07/14/19 10/04/24 1 Day Ago History tablet Pain ~07/24/24 B-complex with vitamin C (Super B 1 tablet PO DAILY 10/14/20 10/04/24 1 Day Ago History Complex-Vitamin C tablet) ~07/24/24 tacrolimus 0.1 % topical ointment 1 applic topical BID PRN ECZEMA 10/14/20 10/04/24 1 Day Ago History ~07/24/24 Allergies Allergy/AdvReac Type Severity Reaction Status Date / Time adalimumab (From Humira) Allergy Intermediate rash Verified 10/04/24 13:42 Review of Systems Review of Systems: CONSTITUTIONAL: Reports malaise, chills, sweats, fever. ENT: Denies rhinorrhea, congestion, sinus pain, otalgia or sore throat. CARDIOVASCULAR: Denies chest pain, palpitations, or edema. RESPIRATORY: Reports cough. Denies dyspnea. GASTROINTESTINAL: Denies abdominal pain, diarrhea, bloody, or mucous stools. Reports nausea and vomiting GENITOURINARY: Denies dysuria or hematuria. MUSCULOSKELETAL: Reports myalgia. NEUROLOGIC: Denies headache. 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 Bronchitis Cellulitis and abscess of left lower extremity Cutaneous abscess of left lower limb Screening for diabetes mellitus (DM) Dietary counseling and surveillance (01/31/19) Elevated fasting glucose Elevated liver enzymes Encounter for surgical aftercare following surgery on the skin and subcutaneous tissue Epidermal cyst Erythema nodosum Essential (primary) hypertension Gout, unspecified Hemiplegia of nondominant side following CVA (cerebrovascular accident) Hyperlipidemia, unspecified Hypersomnia Localized swelling of back retirement (current) use of antithrombotics/antiplatelets Major depressive disorder, recurrent severe without psychotic features Mass of left hip region Neuropathy Non-cardiac chest pain ALANA (obstructive sleep apnea) Other iodine-deficiency related thyroid disorders and allied conditions Subacute maxillary sinusitis Ulcerative proctitis with rectal bleeding Vitamin D deficiency MARCIA (generalized anxiety disorder) Hypothyroidism Skin lesion of back History of NH (myocardial infarction) Depression Diarrhea Diabetes Foot drop Stroke Left knee DJD CAD (coronary artery disease) Crohn disease Mixed hyperlipidemia BP (high blood pressure) Borderline diabetes mellitus Cerebrovascular accident (CVA) of pontine structure Surgical History Surgical History History of toe surgery LT 1st toe- 02/2015 History of tubal ligation History of surgery Crohn's, 04/2019 Dr. Culp H/O heart artery stent Family History Family History Mother Hypertension Family history of elevated blood lipids Sarcoma Father Cerebrovascular accident Acute myocardial infarction Sibling Cancer female related per pt, brother-skin cancer Other Family history of malignant neoplasm Heart disease High cholesterol Social History Social History Social History: Smoking status: Never smoker Second hand tobacco smoke exposure: No Alcohol intake: current Substance use: never Substance use type: does not use Do You Feel Safe in your Home?: Yes Lack of Transportation: No Lack of Food: Never True Current Housing: I Have Housing Concerned About Future Housing: No Difficulty Paying Gas/Electric Bills: No Difficulty Paying for Meds: No Currently Unemployed: YES Education: Don't Know Difficulty w/ Childcare or Family Care: No Living arrangements: alone Occupation/Education: retired Gender identity (if verbalized by the patient): Female Sexual Orientation (if Verbalized by the Patient): Straight or Heterosexual Spiritual care concerns: No Comments At time of signature, agree with nursing past medical, surgical, social and family history. There is no relevant family history pertinent to the presenting complaint Exam Narrative: GENERAL: Nontoxic-appearing, well-nourished, and in no acute distress. HEAD: Normocephalic, atraumatic. EYES: PERRLA, conjunctivae clear, and EOMI. ENT: Nares clear, turbinates pink, no rhinorrhea or epistaxis. Mucous membranes moist. Oropharynx without edema, erythema, or lesions. Tonsils not enlarged and without exudate. NECK: Supple. No lymphadenopathy CHEST: Speaks in full sentences. No respiratory distress. HEART: Regular rate and rhythm. ABDOMEN: Soft, nondistended, nontender. Bowel sounds present in all four quadrants. SKIN: Warm, dry, no rash. NEURO: Alert and oriented x3. PSYCH: Normal mood and affect Course Course Emergency Course: Patient is aware of diagnosis, understands and agrees to treatment plan. Anticipatory guidance given. Patient agrees to follow-up as directed and is aware of reasons to seek care at the emergency department. Portions of this record may have been created with voice recognition software Level of Care: Express Care Visit Vital Signs Vital signs: Vital Signs Temperature 99.7 F H 10/04/24 13:30 Pulse Rate 107 H 10/04/24 13:30 Respiratory Rate 16 10/04/24 13:30 Blood Pressure 134/66 10/04/24 13:30 Pulse Oximetry 98 10/04/24 13:30 Oxygen Delivery Room Air 10/04/24 13:30 Temperature 99.7 F H 10/04/24 13:30 Pulse Rate 107 H 10/04/24 13:30 Respiratory Rate 16 10/04/24 13:30 Blood Pressure 134/66 10/04/24 13:30 Pulse Oximetry 98 10/04/24 13:30 Oxygen Delivery Room Air 10/04/24 13:30 Reviewed. MDM - Nausea/Vomiting/Diarrhea MDM Narrative Medical decision making narrative: No evidence of pancreatitis, AAA, cholecystitis, choledocholithiasis, cholangitis, mesenteric ischemia, small bowel obstruction, diverticulitis, colitis, appendicitis, or pelvic etiology such as ovarian/testicular torsion, TOA, or ectopic . Patient has no history of peptic ulcer, H. pylori, chronic aspirin NSAID or corticosteroid use, chronic alcohol use, no history of inflammatory bowel disease, no history of active abdominal infection or malignancy. Patient has no history of hernia or intra-abdominal surgeries, patient denies absence of flatus, constipation, melena, hematemesis. Patient denies post-prandial pain. No pain-out of proportion. Exam findings show no acute concerns or changes; patient is non-toxic appearing and is in no distress. Patient is appropriate for outpatient treatment and follow-up. Critical Care Time Critical Care Time Critical Care Time: No Discharge Plan Discharge Clinical Impression: Influenza A Patient Disposition: Home, Self-Care Condition: Stable Instructions: Influenza (ED) Additional Instructions: -Take strict precautions to prevent the spread of your virus. Be diligent about covering your cough (even when you are alone) and washing your hands frequently. -You may contagious until you have been symptom and/or fever free for 24 hours without fever reducing medicine -Alternate Ibuprofen and Tylenol for pain and fever relief (per package directions) -Drink plenty of fluid - drink fluid with electrolytes such as Gatorade or other oral re-hydration solution. Avoid caffeine, which can make dehydration worse. -Get plenty of rest to help your body heal. -Use a cool mist humidifier for chest and nasal congestion. -Eat RAW honey or use cough drops to ease throat discomfort -Do not smoke or expose children to secondhand smoke -Wash your hands frequently. -Please follow-up with your primary care doctor in the next 1-2 days if your symptoms do not improve. -If you have any worsening of symptoms or any other concerns please go to the ED immediately. -Please take medications as prescribed and continue taking your home medications as usual. Patient Language: Australian Prescriptions: New ondansetron 4 mg tablet,disintegrating 4 mg PO Q8H PRN (Reason: nausea and vomiting) Qty: 10 0RF No Action nitroglycerin 0.4 mg tablet, sublingual 0.4 mg SUBLINGUAL Q5M PRN (Reason: Chest Pain) One-A-Day Women's 50 Plus 400-20 mcg tablet 1 tablet PO DAILY B-complex with vitamin C [Super B Complex-Vitamin C] Tablet 1 tablet PO DAILY Patient Comments: per patient home medication list provided 10/14/20 tacrolimus 0.1 % ointment 1 applic topical BID PRN (Reason: ECZEMA) carvedilol 6.25 mg tablet 6.25 mg PO Q12H Qty: 180 1RF chlorthalidone 25 mg tablet 12.5 mg PO DAILY Qty: 90 1RF escitalopram oxalate 10 mg tablet 10 mg PO DAILY Qty: 90 1RF lisinopril 20 mg tablet 20 mg PO DAILY Qty: 90 1RF pantoprazole 20 mg tablet,delayed release (DR/EC) 20 mg PO QAM Qty: 90 1RF rosuvastatin 20 mg tablet 20 mg PO DAILY Qty: 90 1RF Januvia 100 mg tablet See Rx Instructions .ROUTE .COMPLEX Qty: 90 1RF Dose Instruction: TAKE 1 TABLET BY MOUTH DAILY Rx Instructions: TAKE 1 TABLET BY MOUTH DAILY budesonide 3 mg capsule,delayed,extend.release 3 mg PO DAILY Qty: 126 0RF Rx Instructions: take 9 mg by mouth daily (3 pills) for 4 weeks, then 6 mg by mouth daily (2 pills) for 2 weeks, then 3 mg by mouth daily (1 pill) for 2 weeks. tizanidine 2 mg capsule 2 mg PO TID PRN (Reason: muscle spasticity) Qty: 90 0RF aspirin [Adult Low Dose Aspirin] 81 mg tablet,delayed release (DR/EC) 81 mg PO DAILY Qty: 90 2RF clopidogrel 75 mg tablet See Rx Instructions .ROUTE .COMPLEX Qty: 90 1RF Dose Instruction: TAKE 1 TABLET BY MOUTH DAILY Rx Instructions: TAKE 1 TABLET BY MOUTH DAILY levothyroxine 88 mcg tablet 88 mcg PO DAILY Qty: 90 1RF Stelara 90 mg/mL syringe 90 mg subcut .every 8 weeks Qty: 1 7RF Follow-up/Referrals: Sree White MD [Primary Care Provider] - Time of Disposition: 13:58
[2024-10-04] MEDS: ONDANSETRON HCL ODT 4 MG TABLET SUBLINGUAL (13:59)
[2024-10-04 14:12] LABS: EDINFLUASCREEN Positive (Negative); EDINFLUBSCREEN Negative (Negative)
== END 2024-10-04 14:05 | disposition home or self-care (01) ==
PROVIDERS: Emergency Provider Nurse Practitioner; PCP Family Medicine
DX: J10.1 Influenza due to other identified influenza virus with other respiratory manifestations (principal); K21.9 Gastro-esophageal reflux disease without esophagitis; I25.110 Atherosclerotic heart disease of native coronary artery with unstable angina pectoris; I10 Essential (primary) hypertension; I69.354 Hemiplegia and hemiparesis following cerebral infarction affecting left non-dominant side; E78.5 Hyperlipidemia, unspecified; E03.9 Hypothyroidism, unspecified; E11.40 Type 2 diabetes mellitus with diabetic neuropathy, unspecified; I25.2 Old myocardial infarction; K50.90 Crohn's disease, unspecified, without complications; M10.9 Gout, unspecified; M17.12 Unilateral primary osteoarthritis, left knee; F41.1 Generalized anxiety disorder; F32.A Depression, unspecified; Z95.5 Presence of coronary angioplasty implant and graft; Z79.84 Long term (current) use of oral hypoglycemic drugs; Z79.82 Long term (current) use of aspirin
CPT/HCPCS: 87804; 99213; A9270; G0463

== ENCOUNTER 2024-11-15 07:52 | Outpatient (CLI) | payer BC, SELFPAY ==
--- OUTSIDE RECORDS SUMMARY | 2024-11-15 07:59 | XMS_ITS | Clinical Summary ---
Author Organization [facility] Address [address] [place] [address] Care Team Providers Care Electrotype Servicer Name Role Phone Unavailable Primary Care Provider [...] two tabs to appt. 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 3 tablet 06/08/2022 Active amoxicillin-pot clavulanate [...] Diagnosed Date Coronary artery disease invo lving [place] coronary artery of [place] heart without angina pectoris 08/25/2018 History of [...] patient's age to complete this topic Insurance [facility] FEDERAL [facility] FEDERAL
--- OUTSIDE RECORDS SUMMARY | 2024-11-15 07:59 | XMS_ITS | Referral Summary ---
Author Organization [facility] [place] [address] Address [address] [place] [address] Care Team Providers Care Plug Cutter Name Role Phone Sowmya Moody MD Primary Care Provider Nigel Al DPM Unavailable [phone] Encounters Date Type Department Care Team Description 09/22/2024 Home Care Visit [address] [place] [address] Ewa Boyd RN SN NON OASIS DISCHARGE 09/14/2024 Plan of Care Documentation [address] [place] [address] 09/14/2024 7:30 AM [facility] Home Care Visit [address] [place] [address] Jerry Bella, MARGARET SN NON OASIS RECERTIFICATION from Last 3 Months Allergies No known [...] daily 9 Active 0.9 % sodium chloride ([facility] sodium chloride 0.9%) injectionIndicat ions:line care Infuse [...] Diagnosed Date Coronary artery disease invo lving [place] coronary artery of [place] heart without angina pectoris 08/25/2018 History of [...] on file Legal Sex Female 6:51 PM SENIOR DEVOPS ENGINEER Gender Identity Not on file Sexual Orientation Not on file Last Filed Vital Signs Vital Sign Reading Time Taken Comments Blood Pressure 123/56 07/31/2024 10:05 AM SENIOR DEVOPS ENGINEER Pulse 63 07/31/2024 10:05 AM SENIOR DEVOPS ENGINEER Temperature 36.6 C (97.9 F) 07/31/2024 10:05 AM SENIOR DEVOPS ENGINEER Respiratory Rate 16 07/31/2024 10:05 AM SENIOR DEVOPS ENGINEER Oxygen Saturation 98% 07/31/2024 10:05 AM SENIOR DEVOPS ENGINEER Inhaled Oxygen Concentration - - Weight 87.1 kg (192 lb) 04/10/2024 9:06 AM CDT Height 157.5 cm (5' 2 ) 07/31/2024 9:05 AM SENIOR DEVOPS ENGINEER Body Mass Index 35.12 04/10/2024 9:06 AM CDT Plan of Treatment Not on file Medical Devices Implanted Type Area Hydraulic Repairer Device Identifier Shelf Expiration Date Model / Serial / Lot Hardware Left: Toes Description:LEFT [place] [address] [facility] Care Teams Plug Cutter Relationship Specialty Start Date End Date Sowmya Moody MD [address] [place] [address] PCP - General 11/20/16 Nigel Al, DPM [address] [place] [address] Consulting Physician Podiatry 07/16/21
--- OUTSIDE RECORDS SUMMARY | 2024-11-15 07:59 | XMS_ITS | Clinical Summary ---
Author Organization [facility] Address [address] [place] [address] Care Team Providers Care Assembler Adjuster Name Role Phone Sowmya Moody MD Primary Care Provider [phone] Social History Tobacco Use Types Packs/Day Years [...] of 1 - PCV) 2023 COVID-19 Vaccine (1 - 2023-2 5 season) 2024 Influenza Adult [...] age to complete this topic Care Teams Assembler Adjuster Relationship Specialty Start Date End Date Sowmya Moody MD [address] [facility] [address] [place] [address] PCP - General 04/28/16
--- OUTSIDE RECORDS SUMMARY | 2024-11-15 07:59 | XMS_ITS | Encounter Summary ---
Author Organization [facility] [place] [address] [place] [address] Care Team Providers Care Program Trainer Name Role Phone Unavailable Primary Care Provider Unavailabl e Prior Encounters Date Type Department Care Team Description 06/09/2022 Travel 06/09/2022 9:00 AM CDT Office Visit [facility] [address] [place], [place] [address]c[place] [address] Melchor Jeffrey DDS 06/08/2022 Orders Only [facility] [address] [place], [place] [address]catherine [place] [address] Melchor Jeffrey DDS 06/05/2022 Telephone [facility] [address] [place], [place] [address]c[place] [address] Melchor Jeffrey DDS 06/05/2022 Telephone [facility] [address] [place], [place] [address]c[place] [address] Melchor Jeffrey DDS 06/02/2022 Travel 06/02/2022 9:30 AM CDT Consult [facility] [address] [place], [place] [address]catherine [place] [address] Luis Rodriguez, DESIREE Plan of Treatment Not [...] VITALITY TESTS Routine 06/02/2022 9:30 AM CDT MEDICAL SECRETARY CONSULT Routine 06/02/2022 9:30 AM CDT Visit Diagnoses Not on file Insurance [employer] [place] [facility] [place] [facility] FEDERAL
--- OUTSIDE RECORDS SUMMARY | 2024-11-15 07:59 | XMS_ITS | Clinical Summary ---
Author Organization [facility] [address] Address [address] [place] [address] Care Team Providers Care Crust Sorter Name Role Phone Sowmya Moody MD Primary Care Provider Nigel Al DPM Unavailable [phone] Allergies No known active allergies Medications levothyroxine [...] daily 9 Active 0.9 % sodium chloride ([facility] sodium chloride 0.9%) injectionIndicat ions:line care Infuse [...] Diagnosed Date Coronary artery disease invo lving [place] coronary artery of [place] heart without angina pectoris 08/25/2018 History of coronary artery stent placement 08/25 Hypertension 01/06/2014 Overview (11/25/2016): HYPERTENSION NOS Cerebral artery occlusion 01/06/2014 Overview (11/25/2016): CRBL ART OCL NOS W INFRC Encounters Date Type Department Care Team Description 09/22/2024 Home Care Visit [address] [place] [address] Ewa Boyd RN SN NON OASIS DISCHARGE 09/14/2024 7:30 AM FOOD SERVICE EMPLOYEE Home Care Visit [address] [place] [address] Jerry Bella RN SN NON OASIS RECERTIFICATION 09/14/2024 Plan of Care Documentation [address] [place] [address] from Last 3 Months Surgical History Surgery [...] Hyperlipidemia GERD (gastroesophageal reflux disease) Crohn's disease (HCC) CONTROLLED WITH INFUSIONS Hypothyroidism Type 2 [...] on file Legal Sex Female 6:51 PM FOOD SERVICE EMPLOYEE Gender Identity Not on file Sexual Orientation Not on file Obstetrics History Last Filed Vital Signs Vital Sign Reading Time Taken Comments Blood Pressure 123/56 07/31/2024 10:05 AM FOOD SERVICE EMPLOYEE Pulse 63 07/31/2024 10:05 AM FOOD SERVICE EMPLOYEE Temperature 36.6 C (97.9 F) 07/31/2024 10:05 AM FOOD SERVICE EMPLOYEE Respiratory Rate 16 07/31/2024 10:05 AM FOOD SERVICE EMPLOYEE Oxygen Saturation 98% 07/31/2024 10:05 AM FOOD SERVICE EMPLOYEE Inhaled Oxygen Concentration - - Weight 87.1 kg (192 lb) 04/10/2024 9:06 AM CDT Height 157.5 cm (5' 2 ) 07/31/2024 9:05 AM FOOD SERVICE EMPLOYEE Body Mass Index 35.12 04/10/2024 9:06 AM CDT Plan of Treatment Health Maintenance Due Date Last Done Comments Breast Cancer Screening-Mammogram 1960 Colon Cancer Screening-Colonoscopy 1960 Depression Screening 1958 Hepatitis C Screening 1958 Osteoporosis Screening-Bone Density Scan 1958 DTaP/Tdap/Td Vaccine (1 - Tdap) 1969 Hepatitis B Screening 1976 Pneumococcal vaccine 65+ (1 of 1 - PCV) 2008 Zoster Vaccine (1 of 2) 2008 Fall Risk Assessment 07/11/2022 07/11/2021 Well Visit 65+ 2023 Influenza Vaccine (#1) 2024 9, 05/22/2018, 05/18/2017, Additional history exists Medical Devices Implanted Type Area Picture Copyist Device Identifier Shelf Expiration Date Model / Serial / Lot Hardware Left: Toes Description:LEFT GREAT TOE Insurance [facility] FEDERAL Care Teams Crust Sorter Relationship Specialty Start Date End Date Sowmya Moody MD [address] [address] PCP - General 11/20/16 Nigel Al, KEERTHI [address] [facility] [address] [place] [address] Consulting Physician Podiatry 07/16/21
--- OUTSIDE RECORDS SUMMARY | 2024-11-15 07:59 | XMS_ITS | Continuity of Care Document ---
Author Organization [facility] Address [address] [place] [address] Phone Care Team Providers Care Sheriffs Officer Name Role Phone Blair OD, Chucky Unavailable Unavailable Procedures Procedure Date Cntct Lens Hydrophilic Toric Or Prism Ba llast Medical Tax Contact Lens Check Eye Exam & Treatment Refraction Eye Exam Established Pt Advance Directives Directive Yes / No Effective Date File Name No Information Encounters Encounter Description Practice Location Reason(s) For Visit Diagnoses Date Provider Providers Copied on Encounter [facility], [address] [place] [address] [address], [place], [place], [id number], [place] tel:[phone] [facility] No Information 0 Blair OD Chucky. [address] [facility] [address] , [address], [place], [place], [facility], [place]. tel:[phone] [facility], [address] [place] [address] [address], [place], [place], [id number], [place] tel:[phone] [facility] No Information 7 0 Blair OD Chucky. [address] [facility] , [address], [place], [address], [place]. tel:[phone] [facility], [address] [place] [address] [address], [place], [place], [id number], [place] tel:[phone] [facility] No Information 7-201 0 Blair OD Chucky. [address] [facility] , [address], [place], [address], [place]. tel:[phone] [facility] [place], [address] [facility] [address], [place], [place], [id number], [place] tel:[phone] SEC [facility] No Information [address] [facility] , [address], [place], [address], [place]. tel:[phone] Family History Family Member Type Diagnosis Age At Onset No Information Payers Payer name Insurance type Covered green party ID Authoriza tion(s) No Information Social History [...]
--- OUTSIDE RECORDS SUMMARY | 2024-11-15 07:59 | XMS_ITS | Encounter Summary ---
Author Organization [facility] [place] [place] Address [address] [place] [address] Care Team Providers Care Superintendent Ammunition Storage Name Role Phone Unavailable Primary Care Provider Unavailabl e Encounter Details Date Type Department Care Team (Late st Contact Info) Description 06/05/2022 Telephone [facility] [address] [address] Melchor Jeffrey, DESIREE [address] [place] [address] Social History Tobacco Use Types Packs/Day Years [...]
--- OUTSIDE RECORDS SUMMARY | 2024-11-15 07:59 | XMS_ITS | Encounter Summary ---
Author Organization [facility] Address [address] [place] [address] Care Team Providers Care Roller Staker Name Role Phone Unavailable Primary Care Provider Unavailabl e Encounter Details Date Type Department Care Team (Late st Contact Info) Description 06/05/2022 Telephone [facility] [address] [facility] [place] [address] Melchor Jeffrey, DESIREE [address] [place] [address] Social History Tobacco Use Types Packs/Day Years [...]
--- OUTSIDE RECORDS SUMMARY | 2024-11-15 07:59 | XMS_ITS | Encounter Summary ---
Author Organization [facility] Address [address] [place] [address] Care Team Providers Care Silver Cleaner Name Role Phone Sowmya Moody MD Primary Care Provider Nigel Al DPM Unavailable [phone] Encounter Details Date Type Department Care Team (Late st Contact Info) Description 11/24/2016 Orders Only [facility] ProviderVikas MD [address] [place], [place] [id number] Social History Tobacco Use Types Packs/Day Years Used Date Smoking Tobacco: Never Assessed Alcohol Use Standard Drinks/Week Comments No 0 (1 standard drink = 0.6 oz pur e alcohol) Comments Unknown Sex and Gender Information Value Date Recorded Sex Assigned at Not on file Legal Sex Female 6:51 PM MOUSE BREEDER Gender Identity Not on file Sexual Orientation Not on file documented as of this encounter Plan of Treatment Not on file documented as of this encounter Procedures Procedure Name Priority Date/Time Associated Diagnosis Comments CARDIOLOGY REPORT 11/24/2016 documented in this encounter Results * CARDIOLOGY REPORT (11/24/2016) Anatomical Region Laterality Modality Other Narrative 11/24/2016 Ordered by an unspecified provider. Historical Provider [facility] GAMALIEL [facility]ON[facility] Final Result documented in this encounter Visit Diagnoses Not on filedocumented in this encounter Care Teams Silver Cleaner Relationship Specialty Start Date End Date Sowmya Moody MD [address] [place] [address] PCP - General 11/20/16 Nigel Al, KEERTHI [address] [facility] [address] [place] [address] Consulting Physician Podiatry 07/16/21 documented as of this encounter
--- OUTSIDE RECORDS SUMMARY | 2024-11-15 07:59 | XMS_ITS | Clinical Summary ---
Author Organization [facility] Bridget Sandoval Address [address] [place] [address] Care Team Providers Care Sales Lead Name Role Phone Sowmya Moody MD Primary Care Provider [phone] Allergies No known active allergies Medications aspirin [...] 04/01/2022 Active levothyroxine 100 mcg tablet Take 88 mcg by mouth daily. Active lisinopriL (PRINIVIL) 20 mg tablet Take 20 mg by mouth daily. Active pantoprazole (PROTONIX) 20 mg Tablet, Delayed Release (E.C.) Take 20 mg by mouth daily. Active rosuvastatin (CRESTOR) 10 mg tablet Take 20 mg by mouth daily. 09/07/2021 Active Januvia 100 mg Tablet Take 100 mg by mouth daily. Active budesonide (ENTOCORT EC) 3 mg Enteric Coated 24 hour capsule Take 3 mg by mouth daily. 08/22/2024 Active Active Problems No known active problems Encounters Date Type Department Care Team Description 11/08/2024 External Device Data STL ABSTRACTION Provider, Abstract 10/31/2024 External Device Data STL ABSTRACTION Provider, Abstract 10/31/2024 External Device Data [place] ABSTRACTION Provider, Abstract 10/28/2024 External Device Data [place] ABSTRACTION Provider, Abstract 10/27/2024 External Device Data [place] ABSTRACTION Provider, Abstract 10/25/2024 External Device Data [place] ABSTRACTION Provider, Abstract 10/24/2024 External Device Data [place] ABSTRACTION Provider, Abstract 10/10/2024 External Device Data ST[place] ABSTRACTION Provider, Abstract 09/19/2024 Orders Only [facility] Oncology and Hematology [facility] [address] [place] [address] Sarbjit Calvo MD 09/18/2024 10:15 AM LEATHER POLISHER Office Visit [facility] Oncology and Hematology [place] [address] [place] [address] Sarbjit Calvo MD Leukocytosis, unspecified type (Primary Dx) 09/12/2024 External Device Data STL ABSTRACTION Provider, [...] Sign Reading Time Taken Comments Blood Pressure 139/79 09/18/2024 10:07 AM LEATHER POLISHER Pulse 77 09/18/2024 10:07 AM LEATHER POLISHER Temperature 36.6 C (97.8 F) 09/18/2024 10:07 AM LEATHER POLISHER Respiratory Rate 16 09/18/2024 10:07 AM LEATHER POLISHER Oxygen Saturation 96% 09/18/2024 10:07 AM LEATHER POLISHER Inhaled Oxygen Concentration - - Weight 85 kg (187 lb 5.8 oz) 09/18/2024 10:07 AM LEATHER POLISHER Height 157.5 cm (5' 2 ) 06/25/2023 2:09 PM CDT Body Mass Index 34.27 06/25/2023 2:09 PM CDT Plan of Treatment Upcoming Encounters Date Type Department Care Team (Late st Contact Info) Description 06/18/2025 10:15 AM CDT Office Visit [facility] Oncology and Hematology - [place] [address] [facility] [address] [place] [address] Sarbjit Calvo MD [address] [facility] [address] [place] [address] Health Maintenance Due Date Last Done Comments Pre-Diabetes and Diabetes Screening 1958 DTAP/TDAP/TD VACCINES (1 - Tdap) 1977 BREAST CANCER SCREENING 1998 COLORECTAL SCREENING 2003 Colorectal Cancer Screening 2003 FIT-DNA Q 3 years 2003 FIT/FOBT Q 1 year 2003 Flex Sig/CT Colonography Q 5 years 2003 PNEUMOCOCCAL VACCINE 50+ YEARS (1 of 1 - PCV) 08/14/20 08 ZOSTER VACCINE (1 of 2) 2008 OSTEOPOROSIS SCREENING 2023 INFLUENZA VACCINE (#1) 2024 Preventative Visit- Commercial 08/23/2024 RSV VACCINE (60+ or ) (1 - 1-dose 75+ series) 2033 Procedures Procedure Name Priority Date/Time Associated Diagnosis Comments BASIC METABOLIC PANEL Routine 09/18/2024 10:15 AM LEATHER POLISHER CBC WITH DIFFERENTIAL Routine 09/18/2024 10:09 AM LEATHER POLISHER from Last 3 Months Results * BASIC METABOLIC PANEL (09/18/2024 10:15 AM LEATHER POLISHER) Blood Sarbjit Calvo MD CHEMISTRY ORDERABLES Final Resu lt * CBC WITH DIFFERENTIAL (09/18/2024 10:09 AM LEATHER POLISHER) Blood Sarbjit Calvo MD HEMATOLOGY ORDERABLES Final Res ult from Last 3 Months Insurance Care Teams Sales Lead Relationship Specialty Start Date End Date Sowmya Moody MD PCP - General Family Practice 05/14/23
[2024-11-15 09:01] LABS: Alanine Aminotransferase 19 U/L (6-35); Albumin Level 4.4 g/dL (3.5-5.1); Alkaline Phosphatase 70 U/L (38-126); Anion Gap 9 mmol/L (4-12); Aspartate Amino Transferase 24 U/L (14-36); Bilirubin,Total 0.5 mg/dL (0.2-1.3); Blood Urea Nitrogen 12 mg/dL (7-17); Calcium 9.9 mg/dL (8.4-10.2); Carbon Dioxide 30 mmol/L (22-30); Chloride 100 mmol/L (98-107); Estimated Glomerular Filt Rate > 60; Glucose 117 mg/dL (65-110); Potassium 3.6 mmol/L (3.4-5.0); Sodium 139 mmol/L (137-145)
== END 2024-11-15 07:53 | disposition home or self-care (01) ==
PROVIDERS: PCP Family Medicine; Visit Provider Student in an Organized Health Care Education/Training Program
DX: E11.9 Type 2 diabetes mellitus without complications (principal)
CPT/HCPCS: 36415; 80053; 83036

== ENCOUNTER 2024-12-05 08:44 | Outpatient (CLI) | payer BC, SELFPAY ==
--- NOTE | ~2024-12-05 | DEXA_ITS ---
Bone Density Report Name: EDIE MIRANDA Age: 64 Sex: Female Ethnicity: White Date of : 1960 Indication: postmenopausal; screening for osteoporosis; height loss; Referring Provider: ROSALINO BEAR Study: Bone densitometry was performed. Exam Date: December 05, 2024 Accession number: [id number] Bone Density: Region BMD T-score Z-score Classification AP Spine(L1-L4) 1.161 1.0 2.9 Normal Femoral Neck (Left) 0.686 -1.5 0.1 Osteopenia Total Hip (Left) 0.986 0.4 1.7 Normal Femoral Neck (Right) 0.744 -0.9 0.6 Normal Total Hip (Right) 0.993 0.4 1.7 Normal Total Hip Mean 0.989 0.4 1.7 Normal World Health Organization criteria for BMD impression classify patients as: Normal (T-score at or above -1.0), Osteopenia (T-score between -1.0 and -2.5), or Osteoporosis (T-score at or below -2.5). 10-year Fracture Risk(1): Major Osteoporotic Fracture 8.3% Hip Fracture 0.8% Reported Risk Factors: [place] (), Neck BMD=0.686, BMI=35.1 (1) FRAX(R) Version 3.08. Fracture probability calculated for an untreated patient. Fracture probability may be lower if the patient has received treatment. Previous Exams: Region Exam Age BMD T-score BMD Change BMD Change Date g/cm2 vs Baseline vs Previous AP Spine (L1-L4) 12/05/2024 64 1.161 1.0 0.181 (18.5%)# 0.090 (8.4%)* 06/05/2015 54 1.071 0.2 0.091 (9.3%)# 0.091 (9.3%)# 09/19/2011 51 0.980 -0.6 Total Hip(Left) 12/05/2024 64 0.986 0.4 0.067 (7.3%)# 0.031 (3.3%)* 06/05/2015 54 0.954 0.1 0.035 (3.9%)# 0.035 (3.9%)# 09/19/2011 51 0.919 -0.2 Total Hip(Right) 12/05/2024 64 0.993 0.4 0.069 (7.5%)# 0.019 (2.0%) 06/05/2015 54 0.974 0.3 0.050 (5.4%)# 0.050 (5.4%)# 09/19/2011 51 0.924 -0.2 *Denotes significance at 95% confidence level, LSC for AP Spine = 0.022 g/cm2, LSC for Total Hip = 0.027 g/cm2 # Denotes dissimilar scan types or analysis methods Clinical Information Provided by Patient: Patient maximum height was 63 No regular weight bearing exercise Drinks caffeinated beverages Onset of menses at age 12 Number of children 2 Impression: The patient has low bone mass, based on the Left Femoral Neck T-score. The patient has an estimated ten-year risk of hip fracture of 0.8% and an estimated ten-year risk of major fracture of 8.3%, based on the WHO FRAX algorithm. No significant bone loss was observed. Discussion: BONE DENSITY IS LOW AT ONE OR MORE SKELETAL SITES. This patient's lowest T-score is low at one or more skeletal sites. It meets the World Health Organization's (WHO) criteria for ?low bone mass? (T-score between -1.0 and -2.5). The patient's 10-year risk of fracture as calculated by FRAX is less than the threshold where pharmacological therapy is recommended by the National Osteoporosis Foundation (NOF). However, all treatment decisions require clinical judgment and consideration of individual patient factors, including patient preferences, comorbidities, previous drug use, risk factors not captured in the FRAX model (e.g., frailty, falls, vitamin D deficiency, increased bone turnover, interval significant decline in bone density) and possible under or overestimation of fracture risk by FRAX. The patient should follow a healthful lifestyle (good nutrition with adequate calcium and vitamin D, and appropriate weight-bearing exercise). Follow-Up: Consider repeating this study in 2 to 3 years to reassess this patient's status, or sooner if there is some new clinical indication. Reported by: CITLALY on 12/05/2024 9:44:00 AM. Reviewed, dictated and finalized at location A.
--- NOTE | ~2024-12-05 | MM_ITS ---
EXAMINATION: MM screening nick BI w lyala HISTORY: Screening TECHNIQUE: Craniocaudal and mediolateral oblique 3-D tomosynthesis images were obtained and synthetic 2-D images were generated. CAD analysis was submitted and interpreted. COMPARISON: Comparison to multiple prior studies sequentially, with oldest reviewed study dated 09/2016. BREAST PARENCHYMAL COMPOSITION: Dense: The breasts are heterogeneously dense, which may obscure small masses FINDINGS: There is no evidence of suspicious mass, calcification, or architectural distortion to sugg est malignancy in either breast. There has been no suspicious interval change. IMPRESSION: 1. No mammographic evidence of malignancy. 2. Recommend routine screening mammography in one year. BI-RADS Category 1: Negative Reviewed, dictated and finalized at location []
--- OUTSIDE RECORDS SUMMARY | 2024-12-05 09:03 | XMS_ITS | Clinical Summary ---
Author Organization [facility] [address] Address [address] [place] [address] Care Team Providers Care Sample Maker Original Name Role Phone Sowmya Moody MD Primary Care Provider Nigel Al DPM Unavailable [phone] Allergies No known active allergies Medications levothyroxine [...] daily 9 Active 0.9 % sodium chloride ([facility] sodium chloride 0.9%) injectionIndicat ions:line care Infuse [...] Diagnosed Date Coronary artery disease invo lving [place] coronary artery of [place] heart without angina pectoris 08/25/2018 History of coronary artery stent placement 08/25 Hypertension 01/06/2014 Overview (11/25/2016): HYPERTENSION NOS Cerebral artery occlusion 01/06/2014 Overview (11/25/2016): CRBL ART OCL NOS W INFRC Encounters Date Type Department Care Team Description 09/22/2024 Home Care Visit [address] [place] [address] Ewa Boyd RN SN NON OASIS DISCHARGE 09/14/2024 7:30 AM COATER SMOKING PIPE Home Care Visit [address] [place] [address] Jerry Bella RN SN NON OASIS RECERTIFICATION 09/14/2024 Plan of Care Documentation [address] [place] [address] from Last 3 Months Surgical History Surgery [...] on file Legal Sex Female 6:51 PM COATER SMOKING PIPE Gender Identity Not on file Sexual Orientation Not on file Obstetrics History Last Filed Vital Signs Vital Sign Reading Time Taken Comments Blood Pressure 123/56 07/31/2024 10:05 AM COATER SMOKING PIPE Pulse 63 07/31/2024 10:05 AM COATER SMOKING PIPE Temperature 36.6 C (97.9 F) 07/31/2024 10:05 AM COATER SMOKING PIPE Respiratory Rate 16 07/31/2024 10:05 AM COATER SMOKING PIPE Oxygen Saturation 98% 07/31/2024 10:05 AM COATER SMOKING PIPE Inhaled Oxygen Concentration - - Weight 87.1 kg (192 lb) 04/10/2024 9:06 AM CDT Height 157.5 cm (5' 2) 07/31/2024 9:05 AM COATER SMOKING PIPE Body Mass Index 35.12 04/10/2024 9:06 AM [...] 07/11/2021 Well Visit 65+ 2023 Influenza Vaccine (Season Ended) 2025 05/07/2019, 05/22/2018, 05/18/2017, Additional history exists Medical Devices Implanted Type Area Construction Area Manager Device Identifier Shelf Expiration Date Model / Serial / Lot Hardware Left: Toes Description:LEFT GREAT TOE Insurance [facility] FEDERAL Care Teams Sample Maker Original Relationship Specialty Start Date End Date Sowmya Moody MD [address] [facility] [address] [place] [address] PCP - General 11/20/16 Nigel Al DPM [address] [facility] [address] [place] [address] Consulting Physician Podiatry 07/16/21
--- OUTSIDE RECORDS SUMMARY | 2024-12-05 09:03 | XMS_ITS | Encounter Summary ---
Author Organization [facility] [place] Address [address] [place] [address] Care Team Providers Care Etiology Teacher Name Role Phone Unavailable Primary Care Provider Unavailabl e Prior Encounters Date Type Department Care Team Description 06/09/2022 Travel 06/09/2022 9:00 AM CDT Office Visit [facility] [address] [place], [place] [address] [place] [address] Melchor Jeffrey DDS 06/08/2022 Orders Only [facility] [address] [place], [place] [address] [place] [address] Melchor Jeffrey DDS 06/05/2022 Telephone [facility] [address] [place], [place] [address] [place] [address] Melchor Jeffrey DDS 06/05/2022 Telephone [facility] [address] [place] [address] Melchor Jeffrey DDS 06/02/2022 Travel 06/02/2022 9:30 AM CDT Consult [facility] [address] [place], [place] [address] [place] [address] Luis Rodriguez, DESIREE Plan of Treatment Not [...] VITALITY TESTS Routine 06/02/2022 9:30 AM CDT FRYLINE ATTENDANT CONSULT Routine 06/02/2022 9:30 AM CDT Visit Diagnoses Not on file Insurance [place] [facility] [place] [facility] FEDERAL
--- OUTSIDE RECORDS SUMMARY | 2024-12-05 09:03 | XMS_ITS | Referral Summary ---
Author Organization [facility] [address] Address [address] [place] [address] Care Team Providers Care Food Processing Plant Manager Name Role Phone Sowmya Moody MD Primary Care Provider Nigel Al DPM Unavailable [phone] Encounters Date Type Department Care Team Description 09/22/2024 Home Care Visit [address] [place] [address] Ewa Boyd RN SN NON OASIS DISCHARGE 09/14/2024 Plan of Care Documentation [address] [place] [address] 09/14/2024 7:30 AM [facility] Home Care Visit [address] [place] [address] Jerry Bella, MRAGARET SN NON OASIS RECERTIFICATION from Last 3 [...] Active 0.9 % sodium chloride ([facility] sodium chloride 0.9%) injectionIndicat ions:line care [...] Diagnosed Date Coronary artery disease invo lving [place] coronary artery of [place] heart without angina pectoris 08/25/2018 History [...] on file Legal Sex Female 6:51 PM BEFORE SCHOOL Gender Identity Not on file Sexual Orientation Not on file Last Filed Vital Signs Vital Sign Reading Time Taken Comments Blood Pressure 123/56 07/31/2024 10:05 AM BEFORE SCHOOL Pulse 63 07/31/2024 10:05 AM BEFORE SCHOOL Temperature 36.6 C (97.9 F) 07/31/2024 10:05 AM BEFORE SCHOOL Respiratory Rate 16 07/31/2024 10:05 AM BEFORE SCHOOL Oxygen Saturation 98% 07/31/2024 10:05 AM BEFORE SCHOOL Inhaled Oxygen Concentration - - Weight 87.1 kg (192 lb) 04/10/2024 9:06 AM CDT Height 157.5 cm (5' 2) 07/31/2024 9:05 AM BEFORE SCHOOL Body Mass Index 35.12 04/10/2024 9:06 AM CDT Plan of Treatment Not on file Medical Devices Implanted Type Area Heater Helper Device Identifier Shelf Expiration Date Model / Serial / Lot Hardware Left: Toes Description:LEFT GREAT [place] [address] [facility] Care Teams Food Processing Plant Manager Relationship Specialty Start Date End Date Sowmya Moody MD [address] [place] [address] PCP - General 11/20/16 Nigel Al, DPM [address] [place] [address] Consulting Physician Podiatry 07/16/21
--- OUTSIDE RECORDS SUMMARY | 2024-12-05 09:03 | XMS_ITS | Clinical Summary ---
Author Organization [facility] Address [address] [place] [address] Care Team Providers Care Interior Assemblies Installer Name Role Phone Sowmya Moody MD Primary Care Provider +1- [phone] Social History Tobacco Use Types Packs/Day Years [...] 2008 Dexa Scan (General) 2023 Pneumococcal Vaccine: 50+ Ye ars (1 of 1 - PCV) 2023 COVID-19 Vaccine (1 - 2023-2 5 season) 2024 RSV Immunization or 60+ Years (1 [...] age to complete this topic Care Teams Interior Assemblies Installer Relationship Specialty Start Date End Date Sowmya Moody MD [address] [facility] [address] [place] [address] PCP - General 04/28/16
--- OUTSIDE RECORDS SUMMARY | 2024-12-05 09:03 | XMS_ITS | Encounter Summary ---
Author Organization [facility] Address [address] [place] [address] Care Team Providers Care Metallurgical Laboratory Assistant Name Role Phone Unavailable Primary Care Provider Unavailabl e Encounter Details Date Type Department Care Team (Late st Contact Info) Description 06/05/2022 Telephone [facility] [address] [place] [address] Melchor Jeffrey, DESIREE [address] [place] [address] Social History Tobacco Use Types Packs/Day Years [...]
--- OUTSIDE RECORDS SUMMARY | 2024-12-05 09:03 | XMS_ITS | Encounter Summary ---
Author Organization [facility] Address [address] [place] [address] Care Team Providers Care Soft Metals Engraver Hand Name Role Phone Sowmya Moody MD Primary Care Provider Nigel Al DPM Unavailable [phone] Encounter Details Date Type Department Care Team (Late st Contact Info) Description 11/24/2016 Orders Only [facility] ProviderVikas MD [address] [place], [place] [id number] Social History Tobacco Use Types Packs/Day Years Used Date Smoking Tobacco: Never Assessed Alcohol Use Standard Drinks/Week Comments No 0 (1 standard drink = 0.6 oz pur e alcohol) Comments Unknown Sex and Gender Information Value Date Recorded Sex Assigned at Not on file Legal Sex Female 6:51 PM FLIGHT TEST SHOP MECHANIC Gender Identity Not on file Sexual Orientation [...] on filedocumented in this encounter Care Teams Soft Metals Engraver Hand Relationship Specialty Start Date End Date Sowmya Moody MD [address] [place] [address] PCP - General 11/20/16 Nigel Al, KEERTHI [address] [place] [address] Consulting Physician Podiatry 07/16/21 documented as of this encounter
--- OUTSIDE RECORDS SUMMARY | 2024-12-05 09:03 | XMS_ITS | Clinical Summary ---
Author Organization [facility]idget Sandoval Address [address] [place] [address] Care Team Providers Care Cmm Programmer Name Role Phone Sowmya Moody MD Primary Care Provider [phone]- [phone] Allergies No known active allergies Medications aspirin [...] STL ABSTRACTION Provider, Abstract 09/19/2024 Orders Only [facility] [address] [place] [address] Sarbjit Calvo MD 09/18/2024 10:15 AM ECONOMIC FORECASTER Office Visit [facility] [place] [address] [place] [address] Sarbjit Calvo MD Leukocytosis, unspecified type (Primary [...] Comments Blood Pressure 139/79 09/18/2024 10:07 AM ECONOMIC FORECASTER Pulse 77 09/18/2024 10:07 AM ECONOMIC FORECASTER Temperature 36.6 C (97.8 F) 09/18/2024 10:07 AM ECONOMIC FORECASTER Respiratory Rate 16 09/18/2024 10:07 AM ECONOMIC FORECASTER Oxygen Saturation 96% 09/18/2024 10:07 AM ECONOMIC FORECASTER Inhaled Oxygen Concentration - - Weight 85 kg (187 lb 5.8 oz) 09/18/2024 10:07 AM ECONOMIC FORECASTER Height 157.5 cm (5' 2) 06/25/2023 2:09 PM CDT Body Mass Index 34.27 06/25/2023 2:09 PM CDT Plan of Treatment Upcoming Encounters Date Type Department Care Team (Late st Contact Info) Description 06/18/2025 10:15 AM CDT Office Visit [facility] - [place] [address] [facility] [address] [place] [address] Sarbjit Calvo MD [address] [facility] [address] [place] [address] Health Maintenance Due Date Last [...] BASIC METABOLIC PANEL Routine 09/18/2024 10:15 AM ECONOMIC FORECASTER CBC WITH DIFFERENTIAL Routine 09/18/2024 10:09 AM ECONOMIC FORECASTER from Last 3 Months Results * BASIC METABOLIC PANEL (09/18/2024 10:15 AM ECONOMIC FORECASTER) Blood us Sarbjit Calvo MD CHEMISTRY ORDERABLES Final Resu lt * CBC WITH DIFFERENTIAL (09/18/2024 10:09 AM ECONOMIC FORECASTER) Blood Sarbjit Calvo MD HEMATOLOGY ORDERABLES Final Res ult from Last 3 Months Insurance [facility] FEDERAL Care Teams Cmm Programmer Relationship Specialty Start Date End Date Sowmya Moody MD PCP - General Family Practice 05/14/23
--- OUTSIDE RECORDS SUMMARY | 2024-12-05 09:03 | XMS_ITS | Clinical Summary ---
Author Organization [facility] Address [address] [place] [address] Care Team Providers Care Counter Molder Name Role Phone Unavailable Primary Care Provider [...] other two tabs to appt. Must have bus van driver. 3 tablet 06/08/2022 Active amoxicillin-pot [...] Diagnosed Date Coronary artery disease invo lving agdaagux coronary artery of agdaagux heart without angina pectoris 08/25/2018 History of [...] patient's age to complete this topic Insurance [facility] FEDERAL [facility] FEDERAL
--- OUTSIDE RECORDS SUMMARY | 2024-12-05 09:03 | XMS_ITS | Encounter Summary ---
Author Organization [facility] [place] Address [address] [place] [address] Care Team Providers Care Employee Development Director Name Role Phone Unavailable Primary Care Provider Unavailabl e Encounter Details Date Type Department Care Team (Late st Contact Info) Description 06/05/2022 Telephone [facility] [address] [facility] [place] [address] Melchor Jeffrey, DESIREE [address] [place] [address] Social History Tobacco Use Types Packs/Day Years [...]
== END 2024-12-05 08:45 | disposition home or self-care (01) ==
PROVIDERS: PCP Family Medicine; Visit Provider Physician Assistant
DX: Z12.31 Encounter for screening mammogram for malignant neoplasm of breast (principal); Z13.820 Encounter for screening for osteoporosis; M85.852 Other specified disorders of bone density and structure, left thigh; Z78.0 Asymptomatic menopausal state
CPT/HCPCS: 77063; 77067; 77080

== ENCOUNTER 2025-03-21 10:39 | Outpatient (CLI) | payer BC, SELFPAY ==
--- OUTSIDE RECORDS SUMMARY | 2025-03-21 11:07 | XMS_ITS | Clinical Summary ---
Author Organization [facility] Address [address] [place] [address] Care Team Providers Care Assistant To The Ceo Name Role Phone Unavailable Primary Care Provider [...] other two tabs to appt. 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 3 tablet 06/08/2022 Active amoxicillin-pot [...] Diagnosed Date Coronary artery disease invo lving lime coronary artery of lime heart without angina pectoris 08/25/2018 History of [...] Mouth 1960 Dental X-Ray: Panoramic 06/11/2025 06/10/2022 Insurance [facility] [place] [facility] [facility] FED[employer]AL [facility] [place] [facility] FED[employer]AL Member Subscriber Plan / Payer ( fective 2018-Present) Name:Catarina Hercules Relation to Subscriber:Self Name:Catarina Hercules Payer ID:[id number] Type:Not on file Address: [address] [address]
--- OUTSIDE RECORDS SUMMARY | 2025-03-21 11:07 | XMS_ITS | Clinical Summary ---
Author Organization [facility] Address [address] [place] [address] Care Team Providers Care Pomologist Name Role Phone Sowmya Moody MD Primary Care Provider +1- [phone] Social History Tobacco Use Types Packs/Day Years [...] 1 - Tdap) 1977 Mammogram Screening 1998 Pneumococcal Vaccine: 50+ Ye ars (1 of 1 - PCV) 2008 Zoster Vaccines (1 of 2) 2008 Dexa Scan (General) 2023 COVID-19 Vaccine ( - 2023-2 5 season) 2024 RSV Immunization [...] age to complete this topic Care Teams Pomologist Relationship Specialty Start Date End Date Sowmya Moody MD [address] [facility] [address] [place] [address] PCP - General 04/28/16
--- OUTSIDE RECORDS SUMMARY | 2025-03-21 11:07 | XMS_ITS | Patient Health Record ---
Author Organization [facility] Address [address] [place], [place] [address] Support Name Relationship Address Phone EDIE MIRANDA Guarantor Unknown Reason For Referral No Information Plan Of Treatment No Information
--- OUTSIDE RECORDS SUMMARY | 2025-03-21 11:07 | XMS_ITS | Patient Health Record ---
Author Organization [facility] Address [address] [place], [place] [address] Care Team Providers Care Ordnance Corps Officer Name Role Phone FILEMON Hermosillo Unavailable [phone] Sowmya Moody Unavailable Unavailable Reason For Referral No Information Plan Of Treatment No Information Insurance Providers Payer Name Payer Address Payer Phone Subscriber Number Group Number Insured Name Patient Relationship to Insured Coverage Start Date Coverage End Date [facility] ATTN CLAIMS [address] [place] [address] [id number] EDIE MIRANDA Self - patient is the insured
--- OUTSIDE RECORDS SUMMARY | 2025-03-21 11:07 | XMS_ITS | Encounter Summary ---
Author Organization [facility] Address [address] [facility] [address] [place] [address] Care Team Providers Care Circuit Board Inspector Name Role Phone Sowmya Moody MD Primary Care Provider Nigel Al DPM Unavailable [phone] Sree White MD Primary Care Provider Encounter Details Date Type Department Care Team (Late st Contact Info) Description 11/24/2016 Orders Only [facility] ProviderVikas MD [address] [place] [address] Social History Tobacco Use Types Packs/Day Years Used Date Smoking Tobacco: Never Assessed Alcohol Use Standard Drinks/Week Comments No 0 (1 standard drink = 0.6 oz pur e alcohol) Comments Unknown Sex and Gender Information Value Date Recorded Sex Assigned at Not on file 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
--- OUTSIDE RECORDS SUMMARY | 2025-03-21 11:07 | XMS_ITS | Encounter Summary ---
Author Organization [facility] Address [address] [place] [address] Care Team Providers Care Fence Maker Name Role Phone Unavailable Primary Care Provider Unavailabl e Encounter Details Date Type Department Care Team (Late st Contact Info) Description 06/05/2022 Telephone [facility] [address] [place] [address] Melchor Jeffrey, DESIREE [address] [place] [address] Social History Tobacco Use Types Packs/Day Years [...]
--- OUTSIDE RECORDS SUMMARY | 2025-03-21 11:07 | XMS_ITS | Clinical Summary ---
Author Organization [facility] Bridget Sandoval Address [address] [place] [address] Care Team Providers Care Buggy Runner Name Role Phone Sowmya Moody MD Primary Care Provider [phone]- [phone] Allergies No known active allergies Medications aspirin [...] Encounters Date Type Department Care Team Description 03/07/2025 External Device Data STL ABSTRACTION Provider, Abstract 03/06/2025 External Device Data STL ABSTRACTION Provider, Abstract 02/13/2025 External Device Data STL ABSTRACTION Provider, Abstract 01/09/2025 External Device Data STL ABSTRACTION Provider, Abstract [...] Comments Blood Pressure 139/79 09/18/2024 10:07 AM CHARCOAL KILN BURNER Pulse 77 09/18/2024 10:07 AM CHARCOAL KILN BURNER Temperature 36.6 C (97.8 F) 09/18/2024 10:07 AM CHARCOAL KILN BURNER Respiratory Rate 16 09/18/2024 10:07 AM CHARCOAL KILN BURNER Oxygen Saturation 96% 09/18/2024 10:07 AM CHARCOAL KILN BURNER Inhaled Oxygen Concentration - - Weight 85 kg (187 lb 5.8 oz) 09/18/2024 10:07 AM CHARCOAL KILN BURNER Height 157.5 cm (5' 2) 06/25/2023 2:09 PM CDT Body Mass Index 34.27 06/25/2023 2:09 PM CDT Plan of Treatment Upcoming Encounters Date Type Department Care Team (Late st Contact Info) Description 06/18/2025 10:15 AM CDT Office Visit [facility] Oncology and Hematology - [place] [address] [facility] [address] [place] [address] Sarbjit Calvo MD [address] [facility] [address] [place] [address] Health Maintenance Due Date Last [...] 2008 OSTEOPOROSIS SCREENING 2023 INFLUENZA VACCINE (#1) 2025 RSV VACCINE (60+ or ) (1 - 1-dose 75+ series) 2033 Insurance Care Teams Buggy Runner Relationship Specialty Start Date End Date Sowmya Moody MD PCP - General Family Practice 05/14/23
--- OUTSIDE RECORDS SUMMARY | 2025-03-21 11:07 | XMS_ITS | Clinical Summary ---
Author Organization [facility] [address] Address [address] [place] [address] Care Team Providers Care Analysis Reporting Developer Name Role Phone Nigel Al DPM Unavailable [phone] Sree White MD Primary Care Provider Allergies No known active allergies Medications multivitamin (ONE DAILY) tablet tabletIndication s:Vitamin Deficiency take 1 tablet by oral route every day with food 0 2 Active lisinopril (PRINIVIL,ZESTRI L) 10 mg tabletIndication s:hypertension take 1 tablet (10MG) by oral route every day 0 0 8 Active Additional Information Patient taking differently: 20 mg oral Daily, (No indications reported), Informant: Self, Reported on 01/03/2025 carvedilol (COREG) 6.25 mg tabletIndication s:hypertension take 1 tablet (6.25MG) by oral route 2 times every day with food 0 2 Active Additional Information Patient taking differently: 3.125 mg oral 2 times daily with meals (bkfst, dinner), Indications: hypertension, Reported on 01/03/2025 clopidogrel (PLAVIX) 75 mg tabletIndication s:Myocardial Reinfarction Prevention Take one by mouth one time per day 0 0 8 Active sitagliptin phosphate (JANUVIA ORAL)Indications :diabetes insipidus 100 mg daily 9 Active chlorthalidone 25 mg tablet Take 0.5 tablets (12.5 mg total) by mouth daily Active vitamin B complex capsuleIndicatio ns:Vitamin Deficiency Take 1 capsule by mouth daily Active escitalopram (LEXAPRO) 20 mg tabletIndication s:Generalized Anxiety Disorder Take 0.5 tablets (10 mg total) by mouth daily Active aspirin 81 mg enteric coated tabletIndication s:Myocardial Reinfarction Prevention Take 1 tablet (81 mg total) by mouth daily Active tacrolimus (PROTOPIC) 0.1 % ointmentIndicati ons:Intractable Eczema Apply 1 application topically 2 (two) times a day. Indications: eczema skin condition resisting treatment 1 Active cefadroxil (DURICEF) 500 mg capsule Take 1 capsule (500 mg total) by mouth 2 (two) times a day 20 capsule 1 Active Additional Information Patient not taking.Informant: Self, Reported on 01/03/2025 HYDROcodone-acet aminophen (NORCO) 5-325 mg per tabletIndication s:Pain Take 1 tablet by mouth every 6 (six) hours as needed for pain 20 tablet 1 Active Additional Information Patient not taking.Informant: Self, Reported on 01/03/2025 ibuprofen (ADVIL,MOTRIN) 800 mg tablet Take 1 tablet (800 mg total) by mouth every 8 (eight) hours as needed for pain 30 tablet 1 Active rosuvastatin (CRESTOR) 10 mg tabletIndication s:hyperlipidemia Take 2 tablets (20 mg total) by mouth daily 2 Active nitroglycerin (NITROSTAT) 0.4 mg SL [...] needed for muscle spasms (back pain) Active acetaminophen (TYLENOL) 500 mg tabletIndication s:infusion [...] to Vedolizumab infusion 4 07/27/20 25 Active levothyroxine (SYNTHROID) 88 mcg tablet Take 1 tablet (88 mcg total) by mouth early childhood coordinator before breakfast Active Stelara injection Inject 1 mL (90 mg total) under the skin every 8 (eight) weeks 5 Active Active Problems Problem Noted Date Diagnosed Date Coronary artery disease invo lving swinomish coronary artery of swinomish heart without angina pectoris 08/25/2018 History of coronary artery stent placement 08/25 Hypertension 01/06/2014 Overview (11/25/2016): HYPERTENSION NOS Cerebral artery occlusion 01/06/2014 Overview (11/25/2016): CRBL ART OCL NOS W INFRC Encounters Date Type Department Care Team Description 01/03/2025 8:30 AM CDT Office Visit [facility] Cardiology at [address] [place] [address] Luis Tate MD Coronary artery disease involving swinomish coronary artery of swinomish heart without angina pectoris (Primary Dx); History of coronary artery stent placement from Last 3 Months Surgical History Surgery [...] on file 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 Gender Identity Not on file Sexual Orientation Not on file Obstetrics History Last Filed Vital Signs Vital Sign Reading Time Taken Comments Blood Pressure 112/74 01/03/2025 8:30 AM CDT Pulse 88 01/03/2025 8:30 AM CDT Temperature 36.6 C (97.9 F) 07/31/2024 10:05 AM ELECTRICAL MECHANICAL TECHNICIAN Respiratory Rate 16 07/31/2024 10:05 AM ELECTRICAL MECHANICAL TECHNICIAN Oxygen Saturation 95% 01/03/2025 8:30 AM CDT Inhaled Oxygen Concentration - - Weight 87.5 kg (193 lb) 01/03/2025 8:30 AM CDT Height 157.5 cm (5' 2) 01/03/2025 8:30 AM CDT Body Mass Index 35.3 01/03/2025 8:30 AM CDT Plan of Treatment Health Maintenance [...] Well Visit 65+ 2023 Influenza Vaccine (#1) 2025 9, 05/22/2018, 05/18/2017, Additional history exists Medical Devices Implanted Type Area Strike Off Machine Operator Device Identifier Shelf Expiration Date Model / Serial / Lot Hardware Left: Toes Description:LEFT GREAT TOE Insurance [facility] Care Teams Analysis Reporting Developer Relationship Specialty Start Date End Date Sree White MD [address] [place] [address] PCP - General Family Medicine 01/03/25 Nigel Al, DPM Consulting Physician Podiatry 07/16/21
--- OUTSIDE RECORDS SUMMARY | 2025-03-21 11:07 | XMS_ITS | Encounter Summary ---
Author Organization [facility] Health Address [address] [place] [address] Care Team Providers Care Market Survey Representative Name Role Phone Unavailable Primary Care Provider Unavailabl e Prior Encounters Date Type Department Care Team Description 06/09/2022 Travel 06/09/2022 9:00 AM CDT Office Visit [facility] [address] [place], [place] [address] [address] Melchor Jeffrey, DDS 06/08/2022 Orders Only [facility] [place] [address] Melchor Jeffrey DDS 06/05/2022 Telephone [facility] [address] [place] [address] Melchor Jeffrey DDS 06/05/2022 Telephone [facility] [address] [place] [phone] Melchor Jeffrey, SANDRAS 06/02/2022 Travel 06/02/2022 9:30 AM CDT Consult [facility] [address] [place] [address] [phone] Luis Rodriguez DDS Plan of Treatment Not on file Procedures [...] VITALITY TESTS Routine 06/02/2022 9:30 AM CDT ENDO CONSULT Routine 06/02/2022 9:30 AM CDT Visit Diagnoses Not on file Insurance [facility] [place] [facility] FEDERAL
--- OUTSIDE RECORDS SUMMARY | 2025-03-21 11:07 | XMS_ITS | Referral Summary ---
Author Organization [facility] [address] Address [address] [place] [address] Care Team Providers Care Recoil Spring Winder Name Role Phone Nigel Al DPM Unavailable [phone] Sree White MD Primary Care Provider Encounters Date Type Department Care Team Description 01/03/2025 8:30 AM CDT Office Visit [facility] Cardiology at [address] [place] [address] Luis Tate MD Coronary artery disease involving [place] coronary artery of [place] heart without angina pectoris (Primary Dx); History of coronary artery stent placement from Last 3 Months Allergies No known active allergies Medications multivitamin [...] 1 tablet (88 mcg total) by mouth drafter automotive design before breakfast Active Stelara injection Inject 1 mL (90 mg total) under the skin every 8 (eight) weeks 5 Active Active Problems Problem Noted Date Diagnosed Date Coronary artery disease invo lving [place] coronary artery of [place] heart without angina pectoris 08/25/2018 History of [...] on file 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 Gender Identity Not on file Sexual Orientation Not on file Last Filed Vital Signs Vital Sign Reading Time Taken Comments Blood Pressure 112/74 01/03/2025 8:30 AM CDT Pulse 88 01/03/2025 8:30 AM CDT Temperature 36.6 C (97.9 F) 07/31/2024 10:05 AM EMPLOYEE HEALTH NURSE Respiratory Rate 16 07/31/2024 10:05 AM EMPLOYEE HEALTH NURSE Oxygen Saturation 95% 01/03/2025 8:30 AM CDT Inhaled Oxygen Concentration - - Weight 87.5 kg (193 lb) 01/03/2025 8:30 AM CDT Height 157.5 cm (5' 2) 01/03/2025 8:30 AM CDT Body Mass Index 35.3 01/03/2025 8:30 AM CDT Plan of Treatment Not on file Medical Devices Implanted Type Area Impact Hammer Operator Device Identifier Shelf Expiration Date Model / Serial / Lot Hardware Left: Toes Description:LEFT GREAT TOE Insurance [facility] FEDERAL Care Teams Recoil Spring Winder Relationship Specialty Start Date End Date Sree White MD [address] [facility] [address] [place] [address] PCP - General Family Medicine 01/03/25 Nigel Al, DPM Consulting Physician Podiatry 07/16/21
--- OUTSIDE RECORDS SUMMARY | 2025-03-21 11:07 | XMS_ITS | Encounter Summary ---
Author Organization [facility] Health Address [address] [place] [address] Care Team Providers Care Branch Examiner Name Role Phone Unavailable Primary Care Provider Unavailabl e Encounter Details Date Type Department Care Team (Late st Contact Info) Description 06/05/2022 Telephone [facility] [address] [place] [address] Melchor Jeffrey, DDDanni [address] [address] [place] [address] Social History Tobacco Use Types Packs/Day Years [...]
== END 2025-03-21 10:40 | disposition home or self-care (01) ==
LOC: ANHLAB 10:40
PROVIDERS: PCP Family Medicine; Visit Provider Nurse Practitioner Family
DX: K50.10 Crohn's disease of large intestine without complications (principal)
CPT/HCPCS: 87045; 87046; 87427

== ENCOUNTER 2025-04-16 09:02 | Outpatient (CLI) | payer BC, SELFPAY ==
[2025-04-16 09:22] LABS: Hematocrit 39.8 % (37.0-47.0); Hemoglobin 13.1 g/dL (12.0-15.0); Mean Corpuscular HGB Conc 32.9 g/dl (32-36); Mean Corpuscular Hemoglobin 27.9 pg (26-34); Mean Corpuscular Volume 84.7 fl (80-100); Platelet Count Result 346 k/mm3 (150-375); Red Blood Count 4.70 M/mm3 (4.2-5.4); White Blood Count 10.4 K/mm3 (4.5-10.0)
--- OUTSIDE RECORDS SUMMARY | 2025-04-16 09:35 | XMS_ITS | Clinical Summary ---
Author Organization [facility] [address] Address [address] [place] [address] Care Team Providers Care Rug Backing Stenciler Name Role Phone Nigel Al DPM Unavailable [phone] Sree White MD Primary Care Provider Allergies [...] 1 tablet (88 mcg total) by mouth rose grower before breakfast Active Stelara injection Inject 1 mL (90 mg total) under the skin every 8 (eight) weeks 5 Active Active Problems Problem Noted Date Diagnosed Date Coronary artery disease invo lving solomon coronary artery of [place] heart without angina pectoris 08/25/2018 History of coronary artery stent placement 08/25 Hypertension 01/06/2014 Overview (11/25/2016): HYPERTENSION NOS Cerebral artery occlusion 01/06/2014 Overview (11/25/2016): CRBL ART OCL NOS W INFRC Surgical History Surgery Date Site/Laterality Comments CHOLECYSTECTOMY [...] WITH INFUSIONS Hypothyroidism Type 2 diabetes mellitus Cerebrovascular accident (CVA) (HCC) 2006 LEFT SIDE [...] on file 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 Gender Identity Not on file Sexual Orientation Not on file Obstetrics History Last Filed Vital Signs Vital Sign Reading Time Taken Comments Blood Pressure 112/74 01/03/2025 8:30 AM CDT Pulse 88 01/03/2025 8:30 AM CDT Temperature 36.6 C (97.9 F) 07/31/2024 10:05 AM PATROL MOTHER Respiratory Rate 16 07/31/2024 10:05 AM PATROL MOTHER Oxygen Saturation 95% 01/03/2025 8:30 AM CDT [...] history exists Medical Devices Implanted Type Area [place] Boatman Device Identifier Shelf Expiration Date Model / Serial / Lot Hardware Left: Toes Description:LEFT GREAT TOE Insurance [facility] Care Teams Rug Backing Stenciler Relationship Specialty Start Date End Date Sree White MD [address] [place] [address] PCP - General Family Medicine 01/03/25 Nigel Al, KEERTHI Consulting Physician Podiatry 07/16/21
--- OUTSIDE RECORDS SUMMARY | 2025-04-16 09:35 | XMS_ITS | Encounter Summary ---
Author Organization [facility] Health Address [address] [place] [address] Care Team Providers Care Training Consultant Name Role Phone Unavailable Primary Care Provider Unavailabl e Encounter Details Date Type Department Care Team (Late st Contact Info) Description 06/05/2022 Telephone [facility] [address] [place] [address] Melchor Jeffrey, DDDanni [address] [place] [place] [address] Social History Tobacco Use Types Packs/Day Years [...]
--- OUTSIDE RECORDS SUMMARY | 2025-04-16 09:35 | XMS_ITS | Encounter Summary ---
Author Organization [facility] Health Address [address] [place] [address] Care Team Providers Care Storage Solutions Architect Name Role Phone Unavailable Primary Care Provider Unavailabl e Prior Encounters Date Type Department Care Team Description 06/09/2022 Travel 06/09/2022 9:00 AM CDT Office Visit [facility] [address] [place], [place] [address] [address] Melchor Jeffrey, DDS 06/08/2022 Orders Only [facility] [place] [address] Melchor Jeffrey DDS 06/05/2022 Telephone [facility] [address] [place] [address] Melchor Jeffrey DDS 06/05/2022 Telephone [facility] [address] [place] [address] Melchor Jeffrey, SANDRAS 06/02/2022 Travel 06/02/2022 9:30 AM CDT Consult [facility] [address] [place] [address] [phone] Luis Rodriguez DDS Plan of Treatment Not [...] CDT Visit Diagnoses Not on file Insurance [facility] FED[facility] [employer] [place] FED[facility] [facility] FEDERAL
--- OUTSIDE RECORDS SUMMARY | 2025-04-16 09:35 | XMS_ITS | Encounter Summary ---
Author Organization [facility] Health Address [address] [place] [address] Care Team Providers Care Organ Builder Name Role Phone Unavailable Primary Care Provider Unavailabl e Encounter Details Date Type Department Care Team (Late st Contact Info) Description 06/05/2022 Telephone [facility] [address] [facility] [place] [address] Melchor Jeffrey, DESIREE [address] [address] [place] [address] Social History Tobacco Use Types Packs/Day Years [...]
--- OUTSIDE RECORDS SUMMARY | 2025-04-16 09:35 | XMS_ITS | Encounter Summary ---
Author Organization [facility] Address [address] [facility] [address] [place] [address] Care Team Providers Care Italian Lecturer Name Role Phone Sowmya Moody MD Primary Care Provider Nigel Al DPM Unavailable [phone] Sree White MD Primary Care Provider Encounter Details Date Type Department Care Team (Late st Contact Info) Description 11/24/2016 Orders Only [facility] ProviderVikas MD [address] [place] [address] Social History Tobacco Use Types Packs/Day Years Used Date Smoking Tobacco: Never Assessed Alcohol Use Standard Drinks/Week Comments No 0 (1 standard drink = 0.6 oz pur e alcohol) Comments Unknown Sex and Gender Information Value Date Recorded Sex Assigned at Not on file 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
--- OUTSIDE RECORDS SUMMARY | 2025-04-16 09:36 | XMS_ITS | Clinical Summary ---
Author Organization [facility] Health Address [address] [place] [address] Care Team Providers Care Manager Air Name Role Phone Unavailable Primary Care Provider [...] other two tabs to appt. 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 3 tablet 06/08/2022 Active amoxicillin-pot [...] Diagnosed Date Coronary artery disease invo lving [place] coronary artery of [place] heart without angina pectoris 08/25/2018 History of [...] 1958 Dental X-Ray: Panoramic 06/11/2025 06/10/2022 Insurance [employer] [place] FED[place] [facility] FEDERAL [employer] [place] [facility] FEDERAL Member Subscriber Plan / Payer ( fective 2018-Present) Name:Catarina Hercules Relation to Subscriber:Self Name:Catarina Hercules Payer ID:[id number] Type:Not on file Address: [address] [address]
[2025-04-16 09:48] LABS: Alanine Aminotransferase 24 U/L (6-35); Albumin Level 4.3 g/dL (3.5-5.1); Alkaline Phosphatase 65 U/L (38-126); Anion Gap 8 mmol/L (4-12); Aspartate Amino Transferase 34 U/L (14-36); Bilirubin,Total 0.5 mg/dL (0.2-1.3); Blood Urea Nitrogen 14 mg/dL (7-17); CRP 1.7 mg/dL (<1.0); Calcium 9.9 mg/dL (8.4-10.2); Carbon Dioxide 29 mmol/L (22-30); Chloride 100 mmol/L (98-107); Estimated Glomerular Filt Rate > 60; Glucose 116 mg/dL (65-110); Potassium 3.9 mmol/L (3.4-5.0); Sodium 137 mmol/L (137-145); Total Protein 7.6 g/dL (6.3-8.2)
== END 2025-04-16 09:03 | disposition home or self-care (01) ==
LOC: ANHLAB 09:03
PROVIDERS: PCP Family Medicine; Visit Provider Nurse Practitioner Family
DX: K50.10 Crohn's disease of large intestine without complications (principal)
CPT/HCPCS: 36415; 80053; 85027; 85652; 86140

== ENCOUNTER 2025-06-28 09:37 | Outpatient (CLI) | payer BC, SELFPAY ==
--- OUTSIDE RECORDS SUMMARY | 2010-04-07 18:00 | XMS_ITS | Continuity of Care Document ---
Author Organization [facility] Address [address] [place] [address] Phone Care Team Providers Care Internet Network Specialist Name Role Phone Blair OD, Chucky Unavailable Unavailable Procedures Procedure Date Cntct Lens Hydrophilic Toric Or Prism Ba llast Medical Tax Contact Lens Check Eye Exam & Treatment Refraction Eye Exam Established Pt Advance Directives Directive Yes / No Effective Date File Name No Information Encounters Encounter Description Practice Location Reason(s) For Visit Diagnoses Date Provider Providers Copied on Encounter [facility], [address] [place] [address] [address], [place], [place], [id number], [place] tel:[phone] [facility] No Information 0 Blair OD Chucky. [address] [facility] [address] , [address], [place], [place], [facility], [place]. tel:[phone] [facility], [id number] [place] [address] [address], [place], [place], [id number], [place] tel:[phone] [facility] No Information 0 Blair OD Chucky. [address] [facility] [address] , [address], [place], [address], [place]. tel:[phone] [facility], [address] [place] [address] [address], [place], [place], [id number], [place] tel:[phone] [facility] No Information 7-201 0 Blair OD Chucky. [address] [facility] , [address], [place], [address], [place]. tel:[phone] [facility], [address], [place], [place], [id number], [place] tel:[phone] [facility] No Information [address] [facility] , [address], [place], [address], [place]. tel:[phone] Family History Family Member Type Diagnosis Age At Onset No Information Payers Payer name Insurance type Covered republican ID Authoriza tion(s) No Information Social History Type Description Quantity Date Captured Comments Sex Female Smoking Status No Information Chief Complaint And Reason For Visit No Information Reason For Referral Reason For Referral No Information History Of Present Illness Encounter Date Complaint History Of Prese nt Illness No Information Functional Status Date Functional Assessmen t No Information Instructions Date Instruction Additional Infor mation No Information Assessments Type Assessment Date No Information Patient Care Teams Name Effective Dates (start - stop) Status Members No Information
[2025-06-28 10:23] LABS: Hematocrit 41.0 % (37.0-47.0); Hemoglobin 13.3 g/dL (12.0-15.0); Immature Granulocyte Percent A 0.4 % (0-0.5); Lymphocytes Absolute Auto 2.17 K/mm3 (0.9-3.2); Mean Corpuscular HGB Conc 32.4 g/dl (32-36); Mean Corpuscular Hemoglobin 27.7 pg (26-34); Mean Corpuscular Volume 85.4 fl (80-100); Nucleated Red Blood Cells Absolute Auto 0.000 K/mm3 (0.0-0.012); Nucleated Red Blood Cells Perc 0.0 % (0.0-0.2); Platelet Count Result 357 k/mm3 (150-375); Red Blood Count 4.80 M/mm3 (4.2-5.4); White Blood Count 10.8 K/mm3 (4.5-10.0)
[2025-06-28 10:53] LABS: MALB Creatinine Ratio 33.4 mg/g (0-30)
[2025-06-28 10:53] LABS: Alanine Aminotransferase 39 U/L (6-35); Albumin Level 4.7 g/dL (3.5-5.1); Alkaline Phosphatase 81 U/L (38-126); Anion Gap 12 mmol/L (4-12); Aspartate Amino Transferase 37 U/L (14-36); Bilirubin,Total 0.7 mg/dL (0.2-1.3); Blood Urea Nitrogen 14 mg/dL (7-17); Calcium 9.7 mg/dL (8.4-10.2); Carbon Dioxide 27 mmol/L (22-30); Chloride 98 mmol/L (98-107); Cholesterol 199 mg/dL (0-200); Estimated Glomerular Filt Rate > 60; Glucose 122 mg/dL (65-110); HDL Direct 39 mg/dL; Potassium 4.0 mmol/L (3.4-5.0); Sodium 137 mmol/L (137-145); Total Protein 8.2 g/dL (6.3-8.2); Triglycerides 252 mg/dL (<150)
[2025-06-28 11:03] LABS: Free T4 Free Thyroxine 1.11 ng/dL (0.78-2.19)
[2025-06-28 11:19] LABS: Hepatitis B Surface Antigen Negative (Negative)
[2025-06-28 11:25] LABS: Thyroid Stimulating Hormone 1.540 uIU/mL (0.465-4.680)
[2025-06-28 11:27] LABS: Hemoglobin A1C 6.6 % (<5.7)
[2025-06-28 11:36] LABS: Hepatitis B Surface Anti Res Negative
--- OUTSIDE RECORDS SUMMARY | 2025-06-28 18:04 | XMS_ITS | Clinical Summary ---
Author Organization [facility] Bridget Sandoval Address [address] [place] [address] Care Team Providers Care Route Specialist Name Role Phone Sowmya Moody MD Primary Care Provider [phone] Allergies No known active allergies Medications aspirin [...] Encounters Date Type Department Care Team Description 06/13/2025 External Device Data STL ABSTRACTION Provider, Abstract 06/12/2025 External Device Data STL ABSTRACTION Provider, Abstract 05/08/2025 External Device Data [facility]L ABSTRACTION Provider, Abstract [...] Comments Blood Pressure 139/79 09/18/2024 10:07 AM EMPLOYEE RELATIONS REPRESENTATIVE Pulse 77 09/18/2024 10:07 AM EMPLOYEE RELATIONS REPRESENTATIVE Temperature 36.6 C (97.8 F) 09/18/2024 10:07 AM EMPLOYEE RELATIONS REPRESENTATIVE Respiratory Rate 16 09/18/2024 10:07 AM EMPLOYEE RELATIONS REPRESENTATIVE Oxygen Saturation 96% 09/18/2024 10:07 AM EMPLOYEE RELATIONS REPRESENTATIVE Inhaled Oxygen Concentration - - Weight 85 kg (187 lb 5.8 oz) 09/18/2024 10:07 AM EMPLOYEE RELATIONS REPRESENTATIVE Height 157.5 cm (5' 2) 06/25/2023 2:09 PM CDT Body Mass Index 34.27 06/25/2023 2:09 PM CDT Plan of Treatment Upcoming Encounters Date Type Department Care Team (Late st Contact Info) Description 09/28/2025 10:30 AM EMPLOYEE RELATIONS REPRESENTATIVE Office Visit [facility] Oncology and Hematology [facility] [address] [facility] [address] [place] [address] Sarbjit Calvo MD [address] [facility] [address] [place] [address] Health Maintenance Due Date Last [...] 1-dose 75+ series) 2033 Insurance Care Teams Route Specialist Relationship Specialty Start Date End Date Sowmya Moody MD PCP - General Family Practice 05/14/23
--- OUTSIDE RECORDS SUMMARY | 2025-06-28 18:04 | XMS_ITS | Clinical Summary ---
Author Organization [facility] Address [address] [place] [address] Care Team Providers Care Rangelands Conservation Laborer Name Role Phone Sowmya Moody MD Primary Care Provider [phone] Social History Tobacco Use Types Packs/Day Years [...] 2008 Dexa Scan (General) 2023 COVID-19 Vaccine (1 - 2024-2 6 season) 2025 Influenza Adult (#1) 2025 RSV Immunization or 60+ Years (1 - 1-dose 75+ series) 2033 Hepatitis A Vaccines Aged Out No long er eligible based on patient's age to complete this topic Meningococcal B Vaccine Aged Out No l onger eligible based on patient's age to complete this topic Meningococcal Vaccine Aged Out No aurora angel eligible based on patient's age to complete this topic RSV Immunizations Under 20 Months Aged Out No longer eligible based on patient's age to complete this topic Care Teams Rangelands Conservation Laborer Relationship Specialty Start Date End Date Sowmya Moody MD [address] [facility] [address] [place] [address] PCP - General 9/6/16
--- OUTSIDE RECORDS SUMMARY | 2025-06-28 18:04 | XMS_ITS | Encounter Summary ---
Author Organization [facility] Address [address] [facility] [address] [place] [address] Care Team Providers Care Duco Polisher Name Role Phone Sowmya Moody MD Primary Care Provider Nigel Al DPM Unavailable [phone] Sree White MD Primary Care Provider Encounter Details Date Type Department Care Team (Late st Contact Info) Description 11/24/2016 Orders Only [facility] ProviderVikas MD [address] [place] [address] Social History Tobacco Use Types Packs/Day Years Used Date Smoking Tobacco: Never Assessed Alcohol Use Standard Drinks/Week Comments No 0 (1 standard drink = 0.6 oz pur e alcohol) Comments Unknown Sex and Gender Information Value Date Recorded Sex Assigned at Not on file 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
--- OUTSIDE RECORDS SUMMARY | 2025-06-28 18:04 | XMS_ITS | Clinical Summary ---
Author Organization [facility] [address] Address [address] [place] [address] Care Team Providers Care Cleaning Supervisor Name Role Phone Nigel Al DPM Unavailable [phone] Sree White MD Primary Care Provider Allergies [...] 1 tablet (88 mcg total) by mouth drama therapist before breakfast Active Stelara injection Inject 1 mL (90 mg total) under the skin every 8 (eight) weeks 5 Active Active Problems Problem Noted Date Diagnosed Date Coronary artery disease invo lving [place] coronary artery of [place] heart without angina pectoris 08/25/2018 History of [...] on file 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 Gender Identity Not on file Sexual Orientation Not on file Last Filed Vital Signs Vital Sign Reading Time Taken Comments Blood Pressure 112/74 01/03/2025 8:30 AM CDT Pulse 88 01/03/2025 8:30 AM CDT Temperature 36.6 C (97.9 F) 07/31/2024 10:05 AM FIREWALL ADMINISTRATOR Respiratory Rate 16 07/31/2024 10:05 AM FIREWALL ADMINISTRATOR Oxygen Saturation 95% 01/03/2025 8:30 AM CDT [...] Screening 1976 Pneumococcal vaccine 65+ (1 of 2 - PCV) 1977 Zoster Vaccine (1 of 2) 2008 Fall Risk Assessment 07/11/2022 07/11/2021 Well Visit 65+ 2023 Influenza Vaccine (#1) 2025 9, 05/22/2018, 05/18/2017, Additional history exists Medical Devices Implanted Type Area Metal Extrusion Supervisor Device Identifier Shelf Expiration Date Model / Serial / Lot Hardware Left: Toes Description:LEFT GREAT TOE Insurance [facility] Care Teams Cleaning Supervisor Relationship Specialty Start Date End Date Sree White MD [address] [facility] [address] [place] [address] PCP - General Family Medicine 01/03/25 Nigel Al, KEERTHI Consulting Physician Podiatry 07/16/21
[2025-06-29 07:09] LABS: Hep B Core Ab, Total Negative (Negative)
== END 2025-06-28 09:38 | disposition home or self-care (01) ==
PROVIDERS: PCP Family Medicine; Referring Provider Physician Assistant; Visit Provider Nurse Practitioner Family
DX: I25.10 Atherosclerotic heart disease of native coronary artery without angina pectoris (principal); E03.9 Hypothyroidism, unspecified; E78.2 Mixed hyperlipidemia; E11.9 Type 2 diabetes mellitus without complications; K50.10 Crohn's disease of large intestine without complications; Z79.899 Other long term (current) drug therapy; Z11.59 Encounter for screening for other viral diseases
CPT/HCPCS: 36415; 80053; 80061; 82043; 83036; 84439; 84443; 85025; 86480; 86704; 86706; 87340

== ENCOUNTER 2025-08-20 08:03 | Outpatient (CLI) | payer BC, SELFPAY ==
--- OUTSIDE RECORDS SUMMARY | 2025-08-20 08:10 | XMS_ITS | Encounter Summary ---
Author Organization [facility] Health Address [address] [place] [address] Care Team Providers Care Air/Ocean Export Clerk Name Role Phone Unavailable Primary Care Provider Unavailabl e Prior Encounters Date Type Department Care Team Description 06/09/2022 Travel 06/09/2022 9:00 AM CDT Office Visit [facility] [address] [place], [place] [address] [address] Melchor Jeffrey, DDS 06/08/2022 Orders Only [facility] [place] [address] Melchor Jeffrey DDS 06/05/2022 Telephone [facility] [address] [place] [address] Melchor Jeffrey DDS 06/05/2022 Telephone [facility] [address] [place] [address] Melchor Jeffrey, SANDRAS 06/02/2022 Travel 06/02/2022 9:30 AM CDT Consult [facility] [address] [place] [address] [phone] Luis Rodriguez DDS Plan of Treatment Not [...] CDT Visit Diagnoses Not on file Insurance [facility] FEDERAL [employer] [place] FED[place] [facility] FEDERAL
--- OUTSIDE RECORDS SUMMARY | 2025-08-20 08:10 | XMS_ITS | Clinical Summary ---
Author Organization [facility] Bridget Johnsonaron Address [address] [place] [address] Care Team Providers Care Planning Official Name Role Phone Sowmya Moody MD Primary Care Provider [phone] Allergies No known active allergies Medications aspirin [...] Encounters Date Type Department Care Team Description 2025 External Device Data STL ABSTRACTION Provider, Abstract 07/10/2025 External Device Data STL ABSTRACTION Provider, Abstract 06/13/2025 External Device Data STL ABSTRACTION Provider, [...] Comments Blood Pressure 139/79 09/18/2024 10:07 AM METAL BONDING PRESS OPERATOR Pulse 77 09/18/2024 10:07 AM METAL BONDING PRESS OPERATOR Temperature 36.6 C (97.8 F) 09/18/2024 10:07 AM METAL BONDING PRESS OPERATOR Respiratory Rate 16 09/18/2024 10:07 AM METAL BONDING PRESS OPERATOR Oxygen Saturation 96% 09/18/2024 10:07 AM METAL BONDING PRESS OPERATOR Inhaled Oxygen Concentration - - Weight 85 kg (187 lb 5.8 oz) 09/18/2024 10:07 AM METAL BONDING PRESS OPERATOR Height 157.5 cm (5' 2) 06/25/2023 2:09 PM CDT Body Mass Index 34.27 06/25/2023 2:09 PM CDT Plan of Treatment Upcoming Encounters Date Type Department Care Team (Late st Contact Info) Description 09/28/2025 10:30 AM METAL BONDING PRESS OPERATOR Office Visit [facility] Oncology and Hematology - [place] [address] [facility] [address] [place] [address] Sarbjit Calvo MD [address] [facility] [address] [place] [address] Health Maintenance Due Date Last [...] 1-dose 75+ series) 2033 Insurance Care Teams Planning Official Relationship Specialty Start Date End Date Sowmya Moody MD PCP - General Family Practice 05/14/23
--- OUTSIDE RECORDS SUMMARY | 2025-08-20 08:10 | XMS_ITS | Encounter Summary ---
Author Organization [facility] Health Address [address] [place] [address] Care Team Providers Care Dyeing Machine Back Tender Name Role Phone Unavailable Primary Care Provider Unavailabl e Encounter Details Date Type Department Care Team (Late st Contact Info) Description 06/05/2022 Telephone [facility] [address] [place] [address] Melchor Jeffrey, DDDanni [address] [address] [place] [address] Social History Tobacco Use Types Packs/Day Years [...]
--- OUTSIDE RECORDS SUMMARY | 2025-08-20 08:10 | XMS_ITS | Clinical Summary ---
Author Organization [facility] [address] Address [address] [place] [address] Care Team Providers Care Immigration Law Specialist Name Role Phone Nigel Al DPM Unavailable Sree White MD Primary Care Provider Allergies [...] needed for muscle spasms (back pain) Active levothyroxine (SYNTHROID) 88 mcg tablet Take 1 tablet (88 mcg total) by mouth senior materials scientist before breakfast Active Stelara injection Inject 1 mL (90 mg total) under the skin every 8 (eight) weeks 5 Active acetaminophen (TYLENOL) 500 mg tabletIndication s:infusion pre-medication Take 1 tablet (500 mg total) by mouth every 8 (eight) weeks Take by mouth 30 minutes prior to Vedolizumab infusion 4 025 diphenhydrAMINE 25 mg capsuleIndicatio ns:infusion pre-medication Take 1 tablet/capsule (25 mg total) by mouth every 8 (eight) weeks Take by mouth 30 minutes prior to Vedolizumab infusion 4 025 Active Problems Problem Noted Date Diagnosed Date Coronary artery disease invo lving [place] coronary artery of [place] heart without angina pectoris 08/25/2018 History of [...] on file 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 Gender Identity Not on file Sexual Orientation Not on file Last Filed Vital Signs Vital Sign Reading Time Taken Comments Blood Pressure 112/74 01/03/2025 8:30 AM CDT Pulse 88 01/03/2025 8:30 AM CDT Temperature 36.6 C (97.9 F) 07/31/2024 10:05 AM SALES MERCHANDISER Respiratory Rate 16 07/31/2024 10:05 AM SALES MERCHANDISER Oxygen Saturation 95% 01/03/2025 8:30 AM CDT [...] history exists Medical Devices Implanted Type Area Critical Care Unit Manager Device Identifier Shelf Expiration Date Model / Serial / Lot Hardware Left: Toes Description:LEFT GREAT TOE Insurance [facility] Care Teams Immigration Law Specialist Relationship Specialty Start Date End Date Sree White MD [address] [facility] [address] [place] [address] PCP - General Family Medicine 01/03/25 Nigel Al, KEERTHI Consulting Physician Podiatry 07/16/21
--- OUTSIDE RECORDS SUMMARY | 2025-08-20 08:10 | XMS_ITS | Encounter Summary ---
Author Organization [facility] Health Address [address] [place] [address] Care Team Providers Care Logistics/Shipper Name Role Phone Unavailable Primary Care Provider Unavailabl e Encounter Details Date Type Department Care Team (Late st Contact Info) Description 06/05/2022 Telephone [facility] [address] [facility] [address] Melchor Jeffrey, DESIREE [address] [place] [place] [address] Social History Tobacco Use Types Packs/Day Years [...]
--- OUTSIDE RECORDS SUMMARY | 2025-08-20 08:10 | XMS_ITS | Clinical Summary ---
Author Organization [facility] Address [address] [place] [address] Care Team Providers Care Leather Sponger Name Role Phone Unavailable Primary Care Provider [...] other two tabs to appt. 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 3 tablet 06/08/2022 Active amoxicillin-pot clavulanate (AUGMENTIN) [...] Diagnosed Date Coronary artery disease invo lving [place] coronary artery of [place] heart without angina pectoris 08/25/2018 History of [...] 1958 Dental X-Ray: Panoramic 06/11/2025 06/10/2022 Insurance [employer] [place] [facility] FEDERAL [employer] [place] [facility] FEDERAL Member Subscriber Plan / Payer ( fective 2018-Present) Name:Catarina Hercules Relation to Subscriber:Self Name:Catarina Hercules Payer ID:[id number] Type:Not on file Address: [address] [address]
--- OUTSIDE RECORDS SUMMARY | 2025-08-20 08:11 | XMS_ITS | Patient Health Record ---
Author Organization [facility] Address [address] [place], [place] [address] Support Name Relationship Address Phone EDIE MIRANDA Guarantor Unknown Reason For Referral No Information Social History Social History Additional Details Category Social Info Options Details Migrated Social History Migrated Social History History of tobacco use : , Smoking Status : Never smoked Plan Of Treatment No Information
--- OUTSIDE RECORDS SUMMARY | 2025-08-20 08:11 | XMS_ITS | Encounter Summary ---
Author Organization [facility] Address [address] [facility] [address] [place] [address] Care Team Providers Care Global Regulatory Lead Name Role Phone Sowmya Moody MD Primary Care Provider Nigel Al DPM Unavailable [phone] Sree White MD Primary Care Provider Encounter Details Date Type Department Care Team (Late st Contact Info) Description 11/24/2016 Orders Only [facility] ProviderVikas MD [address] [place] [address] Social History Tobacco Use Types Packs/Day Years Used Date Smoking Tobacco: Never Assessed Alcohol Use Standard Drinks/Week Comments No 0 (1 standard drink = 0.6 oz pur e alcohol) Comments Unknown Sex and Gender Information Value Date Recorded Sex Assigned at Not on file 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
--- OUTSIDE RECORDS SUMMARY | 2025-08-20 08:11 | XMS_ITS | Clinical Summary ---
Author Organization [facility] Address [address] [place] [address] Care Team Providers Care Getter Welder Name Role Phone Sowmya Moody MD Primary Care Provider [phone] Social History Tobacco Use Types Packs/Day Years [...] age to complete this topic Care Teams Getter Welder Relationship Specialty Start Date End Date Sowmya Moody MD [address] [facility] [address] [facility] [address] [place] [address] PCP - General 9/6/16
--- OUTSIDE RECORDS SUMMARY | 2025-08-20 08:11 | XMS_ITS | Patient Health Record ---
Author Organization [facility] Address [address] [place], [place] [id number] Care Team Providers Care Market Survey Representative Name Role Phone FILEMON Hermosillo Unavailable Sowmya Moody Unavailable Unavailable Reason For Referral No Information Plan Of Treatment No Information Insurance Providers Payer Name Payer Address Payer Phone Subscriber Number Group Number Insured Name Patient Relationship to Insured Coverage Start Date Coverage End Date [facility] ([facility] ATTN CLAIMS [address] [place] [address] [id number] EDIE MIRANDA Self - patient is the insured
[2025-08-20 08:46] LABS: Alanine Aminotransferase 27 U/L (6-35); Albumin Level 4.2 g/dL (3.5-5.1); Alkaline Phosphatase 73 U/L (38-126); Anion Gap 6 mmol/L (4-12); Aspartate Amino Transferase 31 U/L (14-36); Bilirubin,Total 0.6 mg/dL (0.2-1.3); Blood Urea Nitrogen 14 mg/dL (7-17); Calcium 9.9 mg/dL (8.4-10.2); Carbon Dioxide 30 mmol/L (22-30); Chloride 103 mmol/L (98-107); Estimated Glomerular Filt Rate > 60; Glucose 113 mg/dL (65-110); Potassium 3.7 mmol/L (3.4-5.0); Sodium 139 mmol/L (137-145); Total Protein 7.4 g/dL (6.3-8.2)
== END 2025-08-20 08:04 | disposition home or self-care (01) ==
PROVIDERS: Physician Assistant; PCP Family Medicine; Visit Provider Nurse Practitioner Family
DX: R79.89 Other specified abnormal findings of blood chemistry (principal)
CPT/HCPCS: 36415; 80053; 82248